=== PATIENT | female | born 1950 | race Caucasian/White ===

== ENCOUNTER → 2019-02-16 14:18 | Outpatient (CLI) | payer MEDICARE, SELFPAY ==
--- NOTE | 2019-02-16 14:14 | DI.RAD_ITS ---
SYMPTOMS/DIAGNOSIS: LEFT KNEE PAIN, ? DJD LEFT KNEE: Three views. Comparison is 12/26/10. Periarticular spurring is seen at the posterior patella and the lateral femorotibial joint space. There is narrowing of the patellofemoral joint and the medial femorotibial joint. There is again seen a well-corticated osseous density adjacent to the superior aspect of the patella. No acute fracture or dislocation is seen. The soft tissues are grossly unremarkable. IMPRESSION: Degenerative changes of the left knee, which have shown slight progression since 2010.
== END ==
PROVIDERS: Visit Provider Orthopaedic Surgery
DX: M25.562 Pain in left knee (principal); M17.12 Unilateral primary osteoarthritis, left knee
CPT/HCPCS: 20610; 73562; 99211; 99213; J7325

== ENCOUNTER → 2019-03-05 13:22 | Outpatient (BNVA) | payer MEDICARE, SELFPAY | PROVIDERS: Visit Provider Orthopaedic Surgery | DX: M17.12 Unilateral primary osteoarthritis, left knee (principal) | CPT/HCPCS: 20610; 99211; 99212; J1040 ==

== ENCOUNTER 2019-04-08 00:57 | Outpatient (CLI) | payer MEDICARE, SELFPAY ==
--- NOTE | 2019-04-08 08:00 | DI.MAMMO_ITS ---
SYMPTOM/DIAGNOSIS: SCREENING, Z12.31 MAMMOGRAMS: Mammograms were interpreted according to the usual protocol including computer analysis with CAD system, tomosynthesis and C view imaging. The breasts are primarily of fatty radiodensity. There is no mass. There are no suspicious calcifications. There has been no significant interval change when compared with the previous study. IMPRESSION: No evidence of malignancy, category 1. Yearly screening mammography is recommended. Breast density, Category A. SA ASSESSMENT OF FINDINGS: Negative. Category 1. Patient will receive a letter notifying them of these results. BI-RAD category A. The breasts are almost entirely fatty.
== END 2019-04-08 01:17 ==
DX: Z12.31 Encounter for screening mammogram for malignant neoplasm of breast (principal)
CPT/HCPCS: 77063; 77067

== ENCOUNTER → 2019-04-16 10:23 | Outpatient (BNVA) | payer MEDICARE, SELFPAY | PROVIDERS: Visit Provider Orthopaedic Surgery | DX: M17.12 Unilateral primary osteoarthritis, left knee (principal); Z98.890 Other specified postprocedural states; K04.7 Periapical abscess without sinus | CPT/HCPCS: 99211; 99212 ==

== ENCOUNTER → 2019-05-28 09:28 | Outpatient (BNVA) | payer MEDICARE, SELFPAY | PROVIDERS: Visit Provider Orthopaedic Surgery | DX: M17.12 Unilateral primary osteoarthritis, left knee (principal) | CPT/HCPCS: 20610; 99211; 99213; J1040 ==

== ENCOUNTER 2019-07-27 08:33 | Outpatient (CLI) | payer MEDICARE, SELFPAY ==
--- NOTE | 2019-07-27 08:15 | DI.RAD_ITS ---
SYMPTOM/DIAGNOSIS: CHRONIC LOW BACK PAIN LUMBOSACRAL SPINE: A mild dextrorotoscoliotic deformity involving the lower dorsal and upper and mid lumbar spine is demonstrated. The vertebral bodies appear intact. Disc space narrowing is noted at L 1-2, L 2-3 and L 3-4. The pedicle, spinous and transverse processes appear intact. Degenerative changes involving the facet joints are most pronounced at L 3 through S 1. There is no evidence of spondylosis or spondylolisthesis. The sacrum and sacroiliac joints are intact. SUMMARY: Degenerative changes involving dextrorotoscoliotic lumbar spine are demonstrated as described above.
== END 2019-07-27 08:53 ==
PROVIDERS: Visit Provider Physician Assistant
DX: M54.5 Low back pain (principal); M51.36 Other intervertebral disc degeneration, lumbar region; M41.86 Other forms of scoliosis, lumbar region; M48.062 Spinal stenosis, lumbar region with neurogenic claudication; M17.12 Unilateral primary osteoarthritis, left knee; Z98.890 Other specified postprocedural states
CPT/HCPCS: 99214; 72110

== ENCOUNTER 2019-08-04 01:14 | Outpatient (CLI) | payer MEDICARE, SELFPAY ==
--- NOTE | 2019-08-04 09:45 | DI.MRI_ITS ---
EXAM: MR LUMBAR SPINE WO CLINICAL HISTORY: SPINAL STENOSIS [id number]. TECHNIQUE: Multiplanar multisequence MRI of the Lumbar spine was performed. COMPARISON: MRI - LUMBAR SPINE WO CONTRAST from 06/10/2014 FINDINGS: Bones: The last intervertebral disc space is designated the L5/S1 level for the numbering purpose of this examination. The vertebral body heights are well maintained. Alignment is satisfactory. The si gnal characteristics are unremarkable. Cord: The conus medullaris has a normal appearance and location. T12-L1: No disc herniations or bulges are present. L1-2: There is a mild diffuse disc bulge. No significant central spinal canal stenosis is present . There is mild narrowing of the left neural foramen. L2-3: No disc herniations or bulges are present. L3-4: No disc herniations or bulges are present. There are hypertrophic changes of the facets and li gamentum flavum. No significant central spinal canal stenosis is present. There is mild narrowing o f the neural foramina bilaterally. L4-5: There is a mild diffuse disc bulge. There are hypertrophic changes of the facets and ligament um flavum. The findings cause huyw-fk-xnurdyad central spinal canal stenosis. There is mild narrowi ng of the neural foramen bilaterally. L5-S1: There is disc desiccation present. There are degenerative changes of the facets with mild li gamentum hypertrophy. No significant central spinal canal stenosis is present. There is no neural f oraminal stenosis. Soft tissues: The visualized SI joints and sacrum are well maintained. The paraspinal soft tissues ar e unremarkable. IMPRESSION: Multilevel degenerative changes throughout the lumbar spine as described above. Multilevel central s brennan canal or neural foraminal stenosis as described.
== END 2019-08-04 01:34 ==
PROVIDERS: Visit Provider Student in an Organized Health Care Education/Training Program
DX: M48.062 Spinal stenosis, lumbar region with neurogenic claudication (principal); M51.17 Intervertebral disc disorders with radiculopathy, lumbosacral region
CPT/HCPCS: 72148

== ENCOUNTER → 2019-08-10 09:19 | Outpatient (BNVA) | payer MEDICARE, SELFPAY | PROVIDERS: Visit Provider Student in an Organized Health Care Education/Training Program | DX: M48.062 Spinal stenosis, lumbar region with neurogenic claudication (principal); M17.12 Unilateral primary osteoarthritis, left knee | CPT/HCPCS: 99213 ==

== ENCOUNTER 2020-04-08 01:33 | Outpatient (CLI) | payer MEDICARE, SELFPAY ==
[2020-04-08 08:25] LABS: ALT 30 U/L (14-59); AST 19 U/L (15-37); Albumin 3.7 g/dL (3.4-5.0); Alkaline Phosphatase 80 U/L (46-116); Anion Gap 4.6 mmol/L (3-11); BUN 13 mg/dL (7-18); Bilirubin, Total 0.4 mg/dL (0.2-1.0); CO2 29.4 mmol/L (21.0-32.0); CREATININE 0.83 mg/dL (0.55-1.02); Calcium 8.9 mg/dL (8.5-10.1); Calculated LDL 123 mg/dL (<100); Chloride 106 mmol/L (98-107); Cholesterol 213 mg/dL (<200); Glucose 111 mg/dL (74-106); HDL Cholesterol 77 mg/dL (40-60); Potassium 4.3 mmol/L (3.5-5.1); Sodium 140 mmol/L (136-145); Total Protein 7.1 g/dL (6.4-8.2); Triglyceride 67 mg/dL (<150)
== END 2020-04-08 01:53 ==
DX: E78.5 Hyperlipidemia, unspecified (principal); I10 Essential (primary) hypertension; K21.9 Gastro-esophageal reflux disease without esophagitis; K57.30 Diverticulosis of large intestine without perforation or abscess without bleeding; M79.7 Fibromyalgia; R63.8 Other symptoms and signs concerning food and fluid intake; E03.9 Hypothyroidism, unspecified
CPT/HCPCS: 36415; 80053; 80061

== ENCOUNTER 2020-04-21 01:23 | Outpatient (CLI) | payer MEDICARE, SELFPAY ==
--- NOTE | 2020-04-21 08:15 | DI.MAMMO_ITS ---
EXAM: MG MAMMO SCREENING CLINICAL HISTORY: [id number] TECHNIQUE: Bilateral full field digital CC and MLO mammographic images were obtained with 3D tomosyn thesis and utilizing computer aided detection (CAD). COMPARISON: Available for comparison. FINDINGS: Masses/Architectural Distortion: None seen. Microcalcifications: No suspicious pleomorphic-type are seen. Skin Thickening/Nipple Retraction: None. IMPRESSION: 1. No significant interval change with no specific features of malignancy noted. 2. Unless there is more urgent need, screening mammography is recommended, as per [employer] guidelines. BI-RADS Category 1 - Negative Breast Density - Category A - Almost entirely fatty A negative radiographic report should not delay biopsy if a dominant or clinically suspicious mass is present. Up to ten percent of cancers are not identified on mammography. A negative report may reinforce clinical impression. Adenosis and dense breasts may obscure an underlying neoplasm. False positive reports average 6 to 10%. Patient will receive a letter notifying them of these results.
== END 2020-04-21 01:43 ==
DX: Z12.31 Encounter for screening mammogram for malignant neoplasm of breast (principal)
CPT/HCPCS: 77063; 77067

== ENCOUNTER 2020-07-11 09:52 | Outpatient (CLI) | payer MEDICARE, SELFPAY ==
--- NOTE | 2020-07-11 09:30 | DI.RAD_ITS ---
EXAM: XR KNEE RT 3V AP,LAT,ROSALIE CLINICAL HISTORY: R knee pain. TECHNIQUE: 2D digital imaging was performed. COMPARISON: CR XR knee LT 3V AP,lat,rosalie from 02/16/2019 FINDINGS: There are moderate degenerative changes of the right knee characterized by joint space narrowing and periarticular spurring. The findings are most marked at the medial femoral tibial joint and the fountain llofemoral joint. The bones are intact and normally mineralized. The soft tissues are unremarkable. IMPRESSION: Moderate degenerative changes of the right knee. DATA REPOSITORY: RADIATION DOSE DELIVERED:
== END 2020-07-11 10:12 ==
PROVIDERS: Visit Provider Student in an Organized Health Care Education/Training Program
DX: M17.11 Unilateral primary osteoarthritis, right knee (principal); M17.12 Unilateral primary osteoarthritis, left knee; M25.562 Pain in left knee; M25.561 Pain in right knee; M48.062 Spinal stenosis, lumbar region with neurogenic claudication
CPT/HCPCS: 20610; 73562; 99214; J1040

== ENCOUNTER → 2020-08-01 08:09 | Outpatient (BNVA) | payer MEDICARE, SELFPAY | PROVIDERS: Referring Provider Student in an Organized Health Care Education/Training Program; Visit Provider Psychiatry & Neurology Neurology | DX: M48.062 Spinal stenosis, lumbar region with neurogenic claudication (principal); M54.5 Low back pain; G89.29 Other chronic pain; M17.12 Unilateral primary osteoarthritis, left knee; M17.11 Unilateral primary osteoarthritis, right knee; K59.00 Constipation, unspecified; R35.0 Frequency of micturition | CPT/HCPCS: 95885; 95908; 99204; 99215 ==

== ENCOUNTER 2020-11-01 07:23 | Outpatient (CLI) | payer MEDICARE, SELFPAY ==
--- NOTE | 2020-11-01 06:00 | DI.RAD_ITS ---
EXAM: XR PAIN CLINIC LUMBAR SP 2V CLINICAL HISTORY: Dx: Lumbar Radiculopathy TECHNIQUE: 2D and realtime digital imaging was performed. CONTRAST MATERIAL: Refer to procedure report. COMPARISON: No exams were available for comparison FINDINGS: Fluoroscopy was provided for Dr. Waller during the performance of a lumbosacral pain management. Plea se refer to the procedure report for complete details. Fluoro time: 14.6 seconds IMPRESSION:
[2020-11-01 08:04] VITALS: BP 151/80; PULSE 79; RESP 17; TEMP 37; O2SAT 97
[2020-11-01] MEDS: Omnipaque 240 MG/ML 50 ML BTL IJ (08:36)
[2020-11-01] MEDS: methylPREDNISolone ACETATE 80 MG/ML VIAL IJ (08:36)
--- NOTE | 2020-11-01 08:41 | PDOC.PAIN_ITS ---
Pain Clinic Procedure Note Procedure Note Procedure Note: Date of service: 11/01/20 Lumbar Epidural Steroid Injection Procedure Note COMMENTS: Previously seen in our clinic by Ms. Chavira on 08/16/20. She last had an MRI of the lumbar spine on 08/04/2019. I did review these documents. She has left sided low back pain radiating down her left leg. No rash or other abnormality to her low back area this time. DX: Lumbosacral radiculopathy JUVE WILLOUGHBY has been referred to the [facility] for lumbar epidural steroid injection. The patient was greeted by the nurse who verified patients name and . Patient was then taken to the fluoroscopy suite. The patient was interviewed and the medial record reviewed. There were no medical, pharmacologic, radiographic, or other structural contraindications to attempting fluoroscopically guided lumbar epidural steroid injection. Risks and expected side effects as well as potential benefits of the procedure were reviewed and voiced concerns expressed. The patient consent form was signed and witnessed. Standard patient time-out procedure was performed. The patient was placed in the prone position on the fluoroscopy table and automated blood pressure cuff and pulse oximeter applied. The skin entry point for entering/approaching the epidural space at L5-S1 and marked. Following thorough chlorhexadine preparation of the skin and draping and 1% lidocaine infiltration of the skin entry point and subcutaneous tissues, a 18 gauge Touhy needle was placed under fluoroscopic guidance and with loss of resistance technique into the epidural space. Needle tip placement and depth were aided and confirmed by fluoroscopy. There was no paresthesia or return of blood or CSF through the needle. 1 cc's of Omnipaque 240 was injected with clear epidural s pread confirmed with fluoroscopy. 80mg depomedrol was injected. There was not any unusual discomfort expressed by JUVE WILLOUGHBY. Patient's vital signs were stable throughout the procedure and were as recorded in nursing records. Follow up plans and appointments were discussed with patient. Post procedure instruction was given as documented in nursing records and having met discharge criteria and was discharged from the [facility]. COMMENTS: If this procedure is helpful, it can be completed up to 3 times per 12 months. Willis Waller DO, MPH Pain Management
[2020-11-01 08:47] VITALS: BP 162/84; PULSE 85; RESP 20; O2SAT 98
== END 2020-11-01 07:43 ==
PROVIDERS: Visit Provider Preventive Medicine Occupational Medicine
DX: M54.17 Radiculopathy, lumbosacral region (principal)
CPT/HCPCS: 62323; 72100; J1040; Q9967

== ENCOUNTER → 2021-04-17 09:44 | Outpatient (BNVA) | payer MEDICARE, OTHER, SELFPAY | PROVIDERS: Visit Provider Physician Assistant | DX: M17.12 Unilateral primary osteoarthritis, left knee (principal); M17.11 Unilateral primary osteoarthritis, right knee | CPT/HCPCS: 20610; J1040 ==

== ENCOUNTER 2021-07-07 00:53 | Outpatient (CLI) | payer MEDICARE, SELFPAY ==
[2021-07-07 11:25] LABS: ALT 23 U/L (14-59); AST 21 U/L (15-37); Albumin 3.7 g/dL (3.4-5.0); Alkaline Phosphatase 76 U/L (46-116); Anion Gap 9.9 mmol/L (3-11); BUN 11 mg/dL (7-18); Bilirubin, Total 0.5 mg/dL (0.2-1.0); CO2 28.1 mmol/L (21.0-32.0); CREATININE 0.8 mg/dL (0.55-1.02); Calculated LDL 188 mg/dL (<100); Chloride 105 mmol/L (98-107); Cholesterol 273 mg/dL (<200); Glucose 100 mg/dL (74-106); HDL Cholesterol 69 mg/dL (40-60); Potassium 4.1 mmol/L (3.5-5.1); Sodium 143 mmol/L (136-145); Total Protein 6.9 g/dL (6.4-8.2); Triglyceride 84 mg/dL (<150)
== END 2021-07-07 00:54 | disposition home or self-care (01) ==
LOC: LOS 00:53
DX: E78.5 Hyperlipidemia, unspecified (principal); Z00.00 Encounter for general adult medical examination without abnormal findings
CPT/HCPCS: 36415; 80053; 80061

== ENCOUNTER 2021-07-10 09:48 | Observation (INO) | payer MEDICARE, SELFPAY ==
[2021-07-10] VITALS (64 sets, daily range): BP systolic 120–172; BP diastolic 55–133; PULSE 53–90; RESP 10–30; TEMP 36.4–36.7; O2SAT 93–100
--- NOTE | 2021-07-10 09:45 | RT.EKG_ITS ---
APPROVED REPORT Exam: Resting ECG Reason for Exam: chest pain Patient Location: E HR:68 bpm ECG Measurements Heart Rate 68 AXIS FL 193 P 41 QRSd 166 QRS -26 QT 470 T 108 QTc 501 Conclusion Sinus rhythm...normal P axis, V-rate 60- 99 Left bundle branch block...QRSd>120, broad/notched R ST elevation secondary to IVCD...Multiple VCG criteria I have reviewed and interpreted ECG and agree with software generated interpretation.
--- NOTE | 2021-07-10 10:06 | W.ED.GENAD ---
Discharge Plan Disposition Condition: Improving Discharge Details Chief Complaint: Chest Pain Admit Date/Time: 07/10/21 15:33 Admit Provider: Jeanette Guillen Attending Provider: Jeanette Guillen Primary Care Provider: Huma Baez ED Provider: Mary Beth Mccray Discharge Instructions Activity:: Activity as Tolerated Equipment/Supplies:: No Equipment Needed Diet:: Low Sodium Discharge Orders Discharge Orders: Discharge Order (Routine); Ordered 07/11/21 Ordered By: Jeanette Guillen Discharge Data Discharge Date/Time-TO BE ENTERED AT DEPARTURE: 07/10/21 16:39 Medical Decision Making 70-year-old female presents to the ER chief complaint of midepigastric abdominal/chest pain that began at 615 this morning. She reports she did not wake her up out of sleep. She states that it gets worse when sitting up. Associated with some diaphoresis and nausea no vomiting. Denies any shortness of breath, fever chills problems urinating cough or any other associated symptoms. She denies have any active pain at this time. Denies any lower extremity swelling. Does not take aspirin daily. Does have a past medical history of hypertension, chronic low back pain, diverticulosis, fibromyalgia. Denies being a smoker. EKG was reviewed by Dr. Elisabet Odom ER attending, new left bundle branch block, old EKG available for review. Please see her official review and report. CBC, CMP, serial troponins, CXR ordered at this time. 324 mg chewable aspirin. 1104: Patient re-evaluation, in no acute distress, denies any recurrence of chest pain. EXAM: XR CHEST 2V PA LATERAL CLINICAL HISTORY: Chest pain TECHNIQUE: 2D digital imaging was performed. COMPARISON: No exams were available for comparison FINDINGS: MEDIASTINUM: Normal. HEART: Upper limits of normal. PULMONARY VASCULATURE: Mild pulmonary venous congestion. LUNGS: Mild prominence of the interstitium diffusely. No focal consolidating infiltrates. PLEURAL SPACE: No pleural effusion or pneumothorax. BONE:Within normal limits for the patient's age. OTHER FINDINGS:Normal. IMPRESSION: Findings suggesting pulmonary edema/fluid overload. Please correlate clinically. 1340: Patient re-evaluation, continues to be chest pain free. Discussed recommendation for admission for serial troponins and observation, pt is in agreement with plan. Will discuss case with hospitalist. 1343: Hospitalist paged. 1402: Spoke with Dr. Guillen who requests getting a Abdominal US to rule out cholecystitis prior to accepting patient for admission. EXAM: US ABDOMEN LIMITED CLINICAL HISTORY: Midepigastric pain, R/O Cholecystitis TECHNIQUE: Ultrasound abdomen performed using standard protocol. COMPARISON: No exams were available for comparison FINDINGS: PANCREAS: Normal where visualized. LIVER: There is diffuse increased echogenicity of the liver consistent with fatty infiltration. Liver measures 18 cm long. Hepatopedal flow in the Portal Vein. GALLBLADDER: Multiple mobile stones. No evidence of wall thickening. No pericholecystic fluid identified. BILIARY SYSTEM: Common bile duct measures < 7 mm. No intrahepatic biliary ductal dilation. AVERY'S SIGN: Negative. Right kidney: Normal in size. No evidence of renal calculi. No evidence of hydronephrosis. No renal mass or cyst identified. ASCITES: None seen. IMPRESSION: 1. Cholelithiasis but no evidence of acute cholecystitis. 2. Hepatomegaly and hepatic steatosis. 3. Results of this exam have been verbally communicated with provider. Patient to be admitted, aware of plan. Alert, chest pain free, and hemodynamically stable. HPI General Mode of arrival: ambulatory. Date/Time Provider Initiated Documentation: 07/10/21 09:49. Limitations to Documentation: no limitations. Information obtained by: patient and RN notes reviewed. HPI Narrative: 70-year-old female presents to the ER chief complaint of midepigastric abdominal/chest pain that began at 615 this morning. She reports she did not wake her up out of sleep. She states that it gets worse when sitting up. Associated with some diaphoresis and nausea no vomiting. Denies any shortness of breath, fever chills problems urinating cough or any other associated symptoms. She denies have any active pain at this time. Denies any lower extremity swelling. Does not take aspirin daily. Does have a past medical history of hypertension, chronic low back pain, diverticulosis, fibromyalgia. Denies being a smoker. Related Data Home Medications Medication Instructions Recorded Confirmed vit C 250 mg-vit E 90 mg-zinc 40 2 tab PO DAILY cap 03/31/19 07/10/21 mg-copper 1 sa-jybukc-idnool capsule atorvastatin 40 mg PO QPM #30 tab 07/11/21 carboxymethylcellulose sodium 1 drp OU QID PRN PRN #30 ea 07/11/21 [Refresh Plus] erythromycin 1 applic OS TID 10 Days #0 g 07/11/21 furosemide 20 mg PO DAILY PRN PRN #10 tab 07/11/21 metoprolol tartrate 12.5 mg PO BID #60 tab 07/11/21 pantoprazole 40 mg PO DAILY@0730 #30 tab 07/11/21 sodium chloride [Aundrea 128] 1 drp OS Q6H 10 Days #0 ml 07/11/21 Previous Rx's Medication Instructions Recorded atorvastatin 40 mg PO QPM #30 tab 07/11/21 carboxymethylcellulose sodium 1 drp OU QID PRN PRN #30 ea 07/11/21 [Refresh Plus] erythromycin 1 applic OS TID 10 Days #0 g 07/11/21 furosemide 20 mg PO DAILY PRN PRN #10 tab 07/11/21 metoprolol tartrate 12.5 mg PO BID #60 tab 07/11/21 pantoprazole 40 mg PO DAILY@0730 #30 tab 07/11/21 sodium chloride [Aundrea 128] 1 drp OS Q6H 10 Days #0 ml 07/11/21 Allergies Allergy/AdvReac Type Severity Reaction Status Date / Time No Known Allergies Allergy Verified 07/10/21 09:58 General Stated Complaint: Chest Pain SERENA: 2 Review of Systems Constitutional Constitutional: Reports as per HPI, Denies chills, Denies fever(s) and Denies snoring Cardiovascular Cardiovascular: Reports chest pain, Reports diaphoresis, Denies leg edema, Denies lightheadedness, Denies palpitations, Denies dyspnea and Denies dyspnea on exertion Respiratory Respiratory: Denies dyspnea, Denies dyspnea on exertion, Denies snoring, Denies stridor and Denies wheezing Gastrointestinal Gastrointestinal: Reports heartburn, Denies diarrhea, Reports nausea and Denies vomiting Genitourinary Genitourinary: Denies difficulty voiding Endocrine Endocrine: Denies palpitations Allergic/Immunologic Allergic/Immunologic: Denies wheezing [facility] Medical History (Updated 07/11/21 @ 16:01 by Jeanette Guillen MD) Diverticulosis Diverticulosis of colon without diverticulitis Fibromyalgia Gastroesophageal reflux disease GERD (gastroesophageal reflux disease) Hyperlipidemia (10/22/13) Hypertension Increased BMI Macular degeneration disease (08/08/17) Polyp of colon 2017 [place] - 7 years. 12/17[place] [facility] [place]ENOM[place]OUS [place] (5 YEAR RECALL) 2008 cecal polyp dot Primary fibromyalgia syndrome (10/22/13) Surgical History Arthroplasty of knee (~10/2005) Colonoscopy - IV Sedation (03/04/17) Colonoscopy [place]12[place]14/11[place] [facility] [place]ENOM[place]; DIVERTICULOSIS EGD - [place] (12/14/11[place] [facility] [place] GERD History of arthroscopy of knee SHOULDER SURGERY 08/25/14-DR. NELSON Family History Mother , age 89 Essential hypertension Asthma Father , 84 Diabetes Essential hypertension Heart disease Sister No problems noted. Brother No problems noted. Maternal Grandfather Heart disease Paternal Grandfather Diabetes Maternal Grandmother Stomach cancer Paternal Grandmother Breast cancer Sister Depression Sister Depression Brother No problems noted. Brother Asthma Son No problems noted. Daughter No problems noted. Social History (Updated 07/05/21 @ 18:12 by Ramya Sprague) Smoking/Tobacco Use Status: Former Tobacco Use tobacco type: cigarettes Quit Date: 04/17/09 Second Hand Exposure: Yes Smoking risk assessment performed?: Yes Alcohol Intake: current Alcohol Intake frequency: a few times a week Alcohol type: beer Drug use: Never Substance use type: does not use Caregiver/Support person: No Household members: spouse Housing: apartment Communication Needs: None Do you need help understanding health information?: Never Pets and animals: No Sexually active: No Do you think of yourself as: straight/heterosexual What is your relationship status?: How often do you talk on the phone with friends or family?: twice per week How often do you get together with friends or relatives?: once per week How often do you attend lutheran or jainism services?: decline to answer Do you belong to any clubs or organized social groups?: no Panel score (0-1 are the most socially isolated patients): 2 What type of physical activity do you participate in: swimming Duration: > 90 minutes/day Frequency: 5-6 times per week Tisha/Spiritism: Scientologist Special tisha needs: No Seatbelt use: always Helmet use: No Drive intox or ride w/intox driver guard: No Do you feel safe at home: Yes Do you feel safe in your relationship?: Yes Exam Narrative Exam Narrative: Constitutional: Alert and oriented x3. Appears stated age. Normal body habitus. Head: Normocephalic, no trauma. Eyes: Pupils PERRLA, Red reflex noted, EOM's intact. Eyelids symmetrical without lesions, discharge, or swelling. ENT: Bilateral TM's WNL, External ear normal to inspection, no mastoid TTP, swelling, or erythema, Nasal turbinates WNL, no nasal discharge. Normal dentition, Posterior pharynx WNL, no exudate. Erythema noted to rick-orbital left eye, See eye exam below. Chest: RRR, Normal S1, S2, distal pulses intact. Resp: Lungs clear to auscultation bilaterally, no wheezes, rales, or rhonchi. Abdomen: Soft, non-distended, non-tender to palpation all 4 quadrants. Musculoskeletal: Normal gait, 5/5 strength to all four extremities. Skin: No suspicious rashes or lesions. Capillary refill less than 2 sec. Neurologic: Cranial nerves II-XII intact. Alert and oriented x 3. DTR's intact. Hematologic/Lymphatic: No ecchymosis, no lymphadenopathy. Eyes Periorbital: periorbital findings abnormal left Conjunctivae: conjunctival abnormality left conjunctival injection diffuse Cornea: corneas abnormal on the left fluorescein used and abrasion; with no foreign body noted Pupils: PERRL Eyes/upper lids images: 1. Corneal Abrasion 2. Corneal Abrasion Course Vital Signs Vital signs: Vital Signs Temperature 36.5 C 07/10/21 09:54 Pulse 70 07/10/21 09:54 Respiratory Rate 16 07/10/21 09:54 Pulse Oximetry 100 07/10/21 09:54 Temperature 36.5 C 07/10/21 09:54 Temperature Source Temporal Artery Scan 07/10/21 09:54 Pulse 70 07/10/21 09:54 Respiratory Rate 16 07/10/21 09:54 Respiratory Effort Non-Labored 07/10/21 09:56 Blood Pressure Position Supine 07/10/21 09:54 Pulse Oximetry 100 07/10/21 09:54 Oxygen Delivery Method Room Air 07/10/21 09:54 Oxygen Flow Rate 0 07/10/21 09:54 Pain Level 4 07/10/21 09:54
[2021-07-10] MEDS: Aspirin 81 MG CHEW 324 MG CH (10:14)
--- NOTE | 2021-07-10 10:15 | DI.RAD_ITS ---
Exam(s) XR CHEST 2V PA LATERAL EXAM: XR CHEST 2V PA LATERAL CLINICAL HISTORY: Chest pain TECHNIQUE: 2D digital imaging was performed. COMPARISON: No exams were available for comparison FINDINGS: MEDIASTINUM: Normal. HEART: Upper limits of normal. PULMONARY VASCULATURE: Mild pulmonary venous congestion. LUNGS: Mild prominence of the interstitium diffusely. No focal consolidating infiltrates. PLEURAL SPACE: No pleural effusion or pneumothorax. BONE:Within normal limits for the patient's age. OTHER FINDINGS:Normal. IMPRESSION: Findings suggesting pulmonary edema/fluid overload. Please correlate clinically. DATA REPOSITORY: RADIATION DOSE DELIVERED:
[2021-07-10 10:30] LABS: Abs Immature Grans 0.05 10^3/uL (0.0-0.06); Absolute Basophil Count 0.05 10^3/uL (0.0-0.2); Absolute Eosinophil Count 0.03 10^3/uL (0.0-0.7); Absolute Lymphocyte Count 0.72 10^3/uL (1.2-3.4); Absolute Monocyte Count 0.63 10^3/uL (0.1-0.8); Absolute Neutrophil Count 9.18 10^3/uL (1.2-6.7); Basophils % 0.5; Eosinophils % 0.3; HCT 42.8 % (36.0-46.0); Immature Grans % 0.5; Lymphocytes % 6.8; MCHC 32.7 % (32.0-36.0); MCV 97.9 fL (80-95); MPV 11.1 fL (8.0-11.0); Monocytes % 5.9; Nucleated RBC 0 %; Platelet Count 191 10^3/uL (130-400); RBC 4.37 10^6/uL (3.93-5.22); RDW 15.9 % (11.7-14.6); WBC 10.66 10^3/uL (4.4-10.8)
[2021-07-10 10:44] LABS: Magnesium 2.2 mg/dL (1.8-2.4)
[2021-07-10 11:15] LABS: ALT 91 U/L (14-59); AST 157 U/L (15-37); Albumin 3.8 g/dL (3.4-5.0); Alkaline Phosphatase 165 U/L (46-116); Anion Gap 8.8 mmol/L (3-11); BUN 15 mg/dL (7-18); CO2 28.2 mmol/L (21.0-32.0); CREATININE 0.8 mg/dL (0.55-1.02); Chloride 103 mmol/L (98-107); Glucose 119 mg/dL (74-106); Lipase 159 U/L (73-393); Potassium 3.8 mmol/L (3.5-5.1); Sodium 140 mmol/L (136-145); Total Protein 7.9 g/dL (6.4-8.2)
[2021-07-10 11:16] LABS: Troponin I < 0.05 ng/mL (<0.06)
[2021-07-10 11:34] LABS: NT-proBNP 826 pg/mL (<300)
--- NOTE | 2021-07-10 12:45 | RT.EKG_ITS ---
APPROVED REPORT Exam: Resting ECG Reason for Exam: repeat trop Patient Location: E HR:66 bpm ECG Measurements Heart Rate 66 AXIS MT 186 P 44 QRSd 161 QRS -28 QT 499 T 104 QTc 521 Conclusion Sinus rhythm...normal P axis, V-rate 60- 99 Left bundle branch block...QRSd>120, broad/notched R ST elevation secondary to IVCD...Multiple VCG criteria I have reviewed and interpreted ECG and agree with software generated interpretation.
[2021-07-10 13:28] LABS: Troponin I < 0.05 ng/mL (<0.06)
[2021-07-10] MEDS: hydroCHLOROthiazide 12.5 MG TAB PO (13:49)
--- NOTE | 2021-07-10 14:00 | DI.US_ITS ---
Exam(s) US ABDOMEN LIMITED EXAM: US ABDOMEN LIMITED CLINICAL HISTORY: Midepigastric pain, R/O Cholecystitis TECHNIQUE: Ultrasound abdomen performed using standard protocol. COMPARISON: No exams were available for comparison FINDINGS: PANCREAS: Normal where visualized. LIVER: There is diffuse increased echogenicity of the liver consistent with fatty infiltration. Live r measures 18 cm long. Hepatopedal flow in the Portal Vein. GALLBLADDER: Multiple mobile stones. No evidence of wall thickening. No pericholecystic fluid identi fied. BILIARY SYSTEM: Common bile duct measures < 7 mm. No intrahepatic biliary ductal dilation. AVERY'S SIGN: Negative. Right kidney: Normal in size. No evidence of renal calculi. No evidence of hydronephrosis. No renal mass or cyst identified. ASCITES: None seen. IMPRESSION: 1. Cholelithiasis but no evidence of acute cholecystitis. 2. Hepatomegaly and hepatic steatosis. 3. Results of this exam have been verbally communicated with provider. DATA REPOSITORY:
[2021-07-10 15:16] LABS: Source Nasal/Nares
[2021-07-10] MEDS: Tetracaine 0.5% 4 ML BTL OP (15:45)
[2021-07-10] MEDS: Fluorescein STRIPS 100/BOX 1 MG OP (15:45)
[2021-07-10] MEDS: Balanced Salt Solution 15 ML BTL OP (15:45)
[2021-07-10] MEDS: Erythromycin Ophth Oint 3.5 GM TUBE (15:47)
--- NOTE | 2021-07-10 17:22 | HPE_ITS ---
Date of service: 07/10/21 Time of Service: 17:23 Assessment and Plan Assessment and plan (1) Chest discomfort: Status: Acute Assessment and plan: In actuality, the patient's symptoms are more c/w billiary colic. The ischemic workup will be pursued, but this is based on incidental findings of LBBB and pulmonary edema and CXR. The patient will need to have follow up for the billiary colic as outpatient. She is being prescribed a higher dose of PPI as well as she is normally on NSAIDs. The patient does have a new LBBB on EKG, evidence of acute CHF, all of which argue toward likely underlying CAD. Does have a h/o tobacco abuse, hypertension, hyperlipidemia. The patient will be monitored on telemetry with serial troponins and EKG in am, diuresed overnight, made NPO for MPI tomorrow. (2) New onset left bundle branch block (LBBB): Status: Acute Assessment and plan: Must r/o underlying CAD. For MPI tomorrow. R/o ACS as above (3) Acute CHF: Status: Acute Assessment and plan: Start lasix. Monitor I/O's and daily weights. TSH/FT4 pending. Check echo. MPI tomorrow. (4) Transaminitis: Status: Acute Assessment and plan: Has evidence of hepatic steatosis on US. No evidence of acute cholecystitis, but does have cholelithiasis which predisposes her to biliary colic and possible choledocholithiasis. Her pain has resolved. She will need follow up for this as outpatient. Check hepatitis panel (5) Hepatic steatosis: Status: Acute Assessment and plan: as above (6) Corneal abrasion: Status: Acute Assessment and plan: Tx with Aundrea drops, moisturizing eye drops, as well as eythromycin ointment. (7) DVT prophylaxis: Status: Acute Assessment and plan: SC lovenox (8) Discharge planning issues: Status: Acute Assessment and plan: Full code History of Present Illness History of Present Illness Chief Complaint: chest pain Narrative: Ms Barbour is a 70 year old female with PMHx of hypertension, hyperlipidemia, GERD, and fibromyalgia, who presented to [facility] ED today c/o epigastric discomfort radiating to her back and accompanied by nausea since 6:14 am this morning. This has completely resolved patient presented to the ED. She was initiated on HCTZ for her BP yesterday. Her EKG in the ED showed new LBBB. Her troponins were negative x2. She had evidence of pulmonary edema on CXR, though the patient denies any SOB at rest. She does endorse PHAN when walking up a hill. Denies orthopnea/PND. She was found to have elevated LFTs. US abdomen ruled out acute cholecystitis, but showed cholelithiasis. Observation on hospitalist service was requested for further workup of chest pain, new LBBB, and acute CHF. The patient was diagnosed with a corneal abrasion of the left eye today as well in the ED. Review of Systems Narrative: Additionally, reports L eye itching and swelling since Saturday. All systems reviewed & are unremarkable except as noted in HPI and below [facility] Medical History (Updated 07/10/21 @ 17:48 by Jeanette Guillen MD) Diverticulosis Diverticulosis of colon without diverticulitis Fibromyalgia Gastroesophageal reflux disease GERD (gastroesophageal reflux disease) Hyperlipidemia (10/22/13) Increased BMI Macular degeneration disease (08/08/17) Polyp of colon 2017 Tone - 7 years. 12/17/11 [facility] [place] (5 YEAR RECALL) 2008 cecal polyp dot Primary fibromyalgia syndrome (10/22/13) Surgical History Arthroplasty of knee (~10/2005) Colonoscopy - IV Sedation (03/04/17) Colonoscopy - MAC (12/14/11[place] [facility] [place]ENOM[place]; DIVERTICULOSIS EGD - MAC (12/14/11) [facility] [place] GERD History of arthroscopy of knee SHOULDER SURGERY 08/25/14-DR. NELSON Family History Mother , age 89 Essential hypertension Asthma Father , 84 Diabetes Essential hypertension Heart disease Sister No problems noted. Brother No problems noted. Maternal Grandfather Heart disease Paternal Grandfather Diabetes Maternal Grandmother Stomach cancer Paternal Grandmother Breast cancer Sister Depression Sister Depression Brother No problems noted. Brother Asthma Son No problems noted. Daughter No problems noted. Social History (Updated 07/05/21 @ 18:12 by Ramya Sprague) Smoking/Tobacco Use Status: Former Tobacco Use tobacco type: cigarettes Quit Date: 04/17/09 Second Hand Exposure: Yes Smoking risk assessment performed?: Yes Alcohol Intake: current Alcohol Intake frequency: a few times a week Alcohol type: beer Drug use: Never Substance use type: does not use Caregiver/Support person: No Household members: spouse Housing: apartment Communication Needs: None Do you need help understanding health information?: Never Pets and animals: No Sexually active: No Do you think of yourself as: straight/heterosexual What is your relationship status?: How often do you talk on the phone with friends or family?: twice per week How often do you get together with friends or relatives?: once per week How often do you attend judaism or oriental orthodox services?: decline to answer Do you belong to any clubs or organized social groups?: no Panel score (0-1 are the most socially isolated patients): 2 What type of physical activity do you participate in: swimming Duration: > 90 minutes/day Frequency: 5-6 times per week Tisha/Oriental Orthodox: Tenriism Special tisha needs: No Seatbelt use: always Helmet use: No Drive intox or ride w/intox driver wheelchair: No Do you feel safe at home: Yes Do you feel safe in your relationship?: Yes Meds Allergies and Home Medications Allergies Allergy/AdvReac Type Severity Reaction Status Date / Time No Known Allergies Allergy Verified 07/10/21 09:58 Home Medications Medication Instructions Recorded Confirmed Type Varicella-Zoster Ge/As01b/Pf 50 mcg IM ONCE #1 kit 03/27/18 11/01/20 Clinic [Shingrix Vial Kit] vit C 250 mg-vit E 90 mg-zinc 40 2 tab PO DAILY cap 03/31/19 07/10/21 History mg-copper 1 lm-[id number] capsule ibuprofen 600 mg PO BID PRN 08/16/20 07/10/21 History omeprazole 20 mg capsule,delayed 20 mg PO DAILY PRN #90 cap 09/29/20 07/10/21 Rx release hydrochlorothiazide 12.5 mg tablet 12.5 mg PO QAM #30 tab 07/04/21 07/10/21 Rx pravastatin 20 mg tablet 20 mg PO DAILY #90 tab 07/04/21 07/10/21 Rx Exam Narrative Exam Narrative: General: Pleasant Middle-aged female, who appears animated and comfortable sitting at the side of the bed Neurological: A&Ox3, no focal deficits Psychiatric: Appropriate speech pattern/content Skin: multiple insect bites on B LE, appear to be mosquitto bites HEENT: Atraumatic, normocephalic, EOMI, MMM, clear oropharynx, no submandibular or cervical lymphadenopathy, no goiter or JVD Cardiovascular: RRR, + ZOEY Lungs: faint crackles L base Gastrointestinal: soft, nontender at the time of my exam, nondistended Genitourinary: deferred Extremities: trace edema BLE's, no c/c. 1+ pedal pulses B Results Imaging Additional studies: EKG #1: LBBB (new), HR 68 EKG #2: LBBB, HR 66 US abdomen: 1. Cholelithiasis but no evidence of acute cholecystitis. 2. Hepatomegaly and hepatic steatosis. 3. Results of this exam have been verbally communicated with provider. CXR: Findings suggesting pulmonary edema/fluid overload. Please correlate clinically. Labs Result diagrams: 07/10/21 10:18 07/10/21 10:18 Labs: Laboratory Results - last 24 hr 07/10/21 07/10/21 07/10/21 10:02 10:02 10:02 WBC Cancelled RBC Cancelled Hgb Cancelled Hct Cancelled MCV Cancelled MCH Cancelled MCHC Cancelled RDW Cancelled Plt Count Cancelled MPV Cancelled Immature Gran % Cancelled Neutrophils % Cancelled Band Neutrophils % Cancelled Lymphocytes % Cancelled Atypical Lymphs % Cancelled Monocytes % Cancelled Eosinophils % Cancelled Basophils % Cancelled Metamyelocytes % Cancelled Myelocytes % Cancelled Promyelocytes % Cancelled Other Cells % Cancelled Nucleated RBC % Cancelled Absolute Neutrophils Cancelled Absolute Lymphocytes Cancelled Absolute Monocytes Cancelled Absolute Eosinophils Cancelled Absolute Basophils Cancelled RBC Morphology Cancelled Polychromasia Cancelled Hypochromasia Cancelled Poikilocytosis Cancelled Basophilic Stippling Cancelled Anisocytosis Cancelled Microcytosis Cancelled Macrocytosis Cancelled Spherocytes Cancelled Tear Drop Cells Cancelled Ovalocytes Cancelled Stomatocytes Cancelled [place] Bodies Cancelled Evelyne Cells/Echinocytes Cancelled Acanthocytes (Spur) Cancelled Schistocytes Cancelled Sodium Cancelled Potassium Cancelled Chloride Cancelled Carbon Dioxide Cancelled Anion Gap Cancelled BUN Cancelled Creatinine Cancelled Estimated GFR/1.73 m2 Cancelled Glucose Cancelled Calcium Cancelled Magnesium Cancelled Total Bilirubin Cancelled AST Cancelled ALT Cancelled Alkaline Phosphatase Cancelled Troponin I Cancelled NT-Pro-B Natriuret Pep Total Protein Cancelled Albumin Cancelled Lipase COVID-19 Source 07/10/21 07/10/21 07/10/21 10:05 10:18 10:18 WBC RBC Hgb Hct MCV MCH MCHC RDW Plt Count MPV Immature Gran % Neutrophils % Band Neutrophils % Lymphocytes % Atypical Lymphs % Monocytes % Eosinophils % Basophils % Metamyelocytes % Myelocytes % Promyelocytes % Other Cells % Nucleated RBC % Absolute Neutrophils Absolute Lymphocytes Absolute Monocytes Absolute Eosinophils Absolute Basophils RBC Morphology Polychromasia Hypochromasia Poikilocytosis Basophilic Stippling Anisocytosis Microcytosis Macrocytosis Spherocytes Tear Drop Cells Ovalocytes Stomatocytes [place] Bodies Evelyne Cells/Echinocytes Acanthocytes (Spur) Schistocytes Sodium 140 Potassium 3.8 Chloride 103 Carbon Dioxide 28.2 Anion Gap 8.8 BUN 15 Creatinine 0.8 Estimated GFR/1.73 m2 >= 60.00 Glucose 119 H Calcium 9.0 Magnesium 2.2 Total Bilirubin 1.0 AST 157 H ALT 91 H Alkaline Phosphatase 165 H Troponin I < 0.05 NT-Pro-B Natriuret Pep Total Protein 7.9 Albumin 3.8 Lipase Cancelled 159 COVID-19 Source 07/10/21 07/10/21 07/10/21 10:18 10:25 12:51 WBC 10.66 RBC 4.37 Hgb 14.0 Hct 42.8 MCV 97.9 H MCH 32.0 MCHC 32.7 RDW 15.9 H Plt Count 191 MPV 11.1 H Immature Gran % 0.5 Neutrophils % 86.0 Band Neutrophils % Lymphocytes % 6.8 Atypical Lymphs % Monocytes % 5.9 Eosinophils % 0.3 Basophils % 0.5 Metamyelocytes % Myelocytes % Promyelocytes % Other Cells % Nucleated RBC % 0 Absolute Neutrophils 9.18 H Absolute Lymphocytes 0.72 L Absolute Monocytes 0.63 Absolute Eosinophils 0.03 Absolute Basophils 0.05 RBC Morphology Polychromasia Hypochromasia Poikilocytosis Basophilic Stippling Anisocytosis Microcytosis Macrocytosis Spherocytes Tear Drop Cells Ovalocytes Stomatocytes [place] Bodies [place] Cells/Echinocytes Acanthocytes (Spur) Schistocytes Sodium Potassium Chloride Carbon Dioxide Anion Gap BUN Creatinine Estimated GFR/1.73 m2 Glucose Calcium Magnesium Total Bilirubin AST ALT Alkaline Phosphatase Troponin I < 0.05 NT-Pro-B Natriuret Pep 826 H Total Protein Albumin Lipase COVID-19 Source 07/10/21 15:10 WBC RBC Hgb Hct MCV MCH MCHC RDW Plt Count MPV Immature Gran % Neutrophils % Band Neutrophils % Lymphocytes % Atypical Lymphs % Monocytes % Eosinophils % Basophils % Metamyelocytes % Myelocytes % Promyelocytes % Other Cells % Nucleated RBC % Absolute Neutrophils Absolute Lymphocytes Absolute Monocytes Absolute Eosinophils Absolute Basophils RBC Morphology Polychromasia Hypochromasia Poikilocytosis Basophilic Stippling Anisocytosis Microcytosis Macrocytosis Spherocytes Tear Drop Cells Ovalocytes Stomatocytes [place] Bodies Evelyne Cells/Echinocytes Acanthocytes (Spur) Schistocytes Sodium Potassium Chloride Carbon Dioxide Anion Gap BUN Creatinine Estimated GFR/1.73 m2 Glucose Calcium Magnesium Total Bilirubin AST ALT Alkaline Phosphatase Troponin I NT-Pro-B Natriuret Pep Total Protein Albumin Lipase COVID-19 Source Nasal/Nares Last Vital Signs Temp 36.5 C 07/10/21 17:05 Pulse 70 07/10/21 17:05 Resp 20 07/10/21 17:05 BP 172/84 H 07/10/21 17:05 Pulse Ox 96 07/10/21 17:05
[2021-07-10 17:56] LABS: TSH (W/Ref FT4) 4.27 uIU/mL (0.36-3.74)
[2021-07-10] MEDS: Furosemide 20 MG/2 ML VIAL IVP (17:57)
[2021-07-10] MEDS: Normal Saline Flush 10 ML SYR IVP (17:58)
[2021-07-10] MEDS: Enoxaparin 40 MG/0.4 ML SYR SC (17:58)
[2021-07-10 18:14] LABS: FREE T4 1.03 ng/dL (0.76-1.46)
[2021-07-10 18:40] LABS: COVID-19 PCR Negative (Negative)
[2021-07-10 18:45] LABS: Troponin I < 0.05 ng/mL (<0.06)
[2021-07-10] MEDS: Erythromycin Ophth Oint 3.5 GM TUBE OS (19:54)
--- NOTE | 2021-07-11 | DI.US_ITS ---
APPROVED REPORT EXAM: Comprehensive 2D, Doppler, and color-flow Echocardiogram Patient Location: In-Patient Room/Bed: 208 Wafer Cleaner: Mirna Jerry RDCS (AE) Indications: New CHF, Other Information Study Quality: Fair. Technically limited study due to body habitus, arrhythmia. Conclusion Left Ventricle : Left ventricular systolic function is mildly decreased. The left ventricle is normal size. There is normal left ventricular wall thickness. There is global hypokinesis of the left ventr icle. LVEF is 50%. Right Ventricle : Right ventricle is grossly normal in size. Right ventricular systolic function is g rossly normal. Atria : The left atrium size is normal. The right atrium size is normal. Mitral Valve : Mild to moderate mitral annular calcification. Trace to mild mitral regurgitation. No evidence of mitral valve stenosis. Great Vessels : The aortic root is normal in size. The ascending aorta is mildly dilated. Aortic arch is normal in caliber. IVC is normal in size and collapses >50% with inspiration. See remainder of study for further details. Wall motion Left Ventricle The left ventricle is normal size. Left ventricular systolic function is mildly decreased. There is n ormal left ventricular wall thickness. There is global hypokinesis of the left ventricle. There is no ventricular septal defect visualized. LVEF is 50%. Right Ventricle Right ventricle is grossly normal in size. Right ventricular systolic function is grossly normal. Atria The left atrium size is normal. The right atrium size is normal. The interatrial septum is intact wit h no evidence for an atrial septal defect. Aortic Valve The Aortic valve is sclerotic. Aortic valve is trileaflet. No hemodynamically significant valvular ao rtic stenosis. No aortic regurgitation is present. Mitral Valve Mild to moderate mitral annular calcification. No evidence of mitral valve stenosis. Trace to mild mi tral regurgitation. Tricuspid Valve The tricuspid valve is normal in structure. There is no tricuspid valve stenosis. Trace tricuspid reg urgitation. Unable to assess PA pressure. Pulmonic Valve The pulmonary valve is normal in structure. There is no pulmonic valvular stenosis. There is no pulmo rajni valvular regurgitation. Great Vessels The aortic root is normal in size. The ascending aorta is mildly dilated. Aortic arch is normal in ca liber. IVC is normal in size and collapses >50% with inspiration. Pericardium There is no pericardial effusion. 2D Dimensions IVSD d PLAX 0.89 cm F: 0.6-1.0 LV Vol A2C d MOD 177.9 mL LVPW d PLAX 0.98 cm F: 0.6 - 1.0 LV Vol A4C d MOD 168.4 mL LVID d PLAX 4.97 cm F: 3.8 - 5.2 LA vol/ BSA A2C s A-L 29.3 mL/m2 LVDs 3.60 cm F: 2.2 - 3.5 LA vol/ BSA A4C s A-L 30.3 mL/m2 Ao Root d 2.53 cm F: 2.7 - 3.3 LA Vol/ BSA Biplane s A-L 32.0 mL/m2 RA Area A4C 12.84 cm2 LA Area A4C s MOD 19.98 cm2 RA Vol/ BSA A4C s A-L 14.5 mL/m2 LA Area A2C s MOD 18.28 cm2 Ao Asc Diam d 3.24 cm F: 2.3 - 3.1 LV EF A4C MOD 50.0 % LV EF Teichholz 52.9 % LV EF A2C MOD 49.6 % LVEF (Del Valle's) 48.08 % F: 54 - 74 LV EF Biplane MOD 48.1 % LV Volume 129.91 mL F: 46 - 106 SV 83.54 mL LV Volume Index 64.31 mL/m2 F: 29 - 61 SV Index 41.37 mL/m2 LV Vol Biplane MOD 173.8 mL FS 27.25 % M-Mode TAPSE 1.62 cm (M/F) >1.7 LV Diastology MV E' medial 0.066 (>0.07 m/s) E/A Ratio 0.5 LV E/e MED 8.35 (<14) MV E Vmax 0.55 (0.4-1.3 m/s) MV E' lateral 0.077 (>0.1 m/s) MV A Vmax 1.10 (0.4-1.3 m/s) LV E/e LAT 7.10 (<14) MV E/A Ratio 0.48 MV E/E' medial 8.40 MV E/E' lateral 7.12 Aortic Valve LVOT Area 3.28 cm2 AoV Area Vmax 1.52 cm2 LVOT Vmax 1.18 m/s AoV Area/ BSA (Vmax) 0.75 cm2/m2 LVOT Mean Roman. 0.75 m/s KRISTIAN Mean Roman. 1.45 cm2 LVOT Peak Grad 5.6 mmHg KRISTIAN Mean Roman. Index 0.72 cm2/m2 LVOT Mean Grad 2.7 mmHg LVOT VTI 0.184 m LVOT Diam s 2.00 cm AoV Vmax 2.54 m/s Velocity Ratio 0.46 AoV Mean Roman. 1.70 m/s AoV Peak Grad 25.9 mmHg LVOT SV 60.38 mL AoV Mean Grad 13.2 mmHg AoV VTI 0.412 m AoV Area VTI 1.47 cm2 AoV Area/ BSA (VTI) 0.73 cm/m2 Mitral Valve MV DT 157 (160-240 msec) MV PHT 46 msec MV Area PHT 4.82 cm2 MV VTI 0.353 m MV Area VTI 1.71 (4.0-6.0 cm2) Pulmonary Valve PV Vmax 1.20 (0.5-1.5 m/s) RVOT Peak Gr. 4.43 mmHg PV Peak Grad 5.8 mmHg RVOT Mean Gr. 2.15 mmHg PV Mean Grad 2.9 mmHg RVOT VTI 0.206 m PV VTI 0.212 m RVOT Vmax 1.05 m/s
[2021-07-11 03:45] VITALS: BP 118/71; PULSE 70; RESP 18; TEMP 36.6; O2SAT 97
[2021-07-11 07:00] VITALS: PULSE 67
[2021-07-11 07:30] LABS: Abs Immature Grans 0.01 10^3/uL (0.0-0.06); Absolute Basophil Count 0.05 10^3/uL (0.0-0.2); Absolute Eosinophil Count 0.14 10^3/uL (0.0-0.7); Absolute Lymphocyte Count 1.18 10^3/uL (1.2-3.4); Absolute Monocyte Count 0.53 10^3/uL (0.1-0.8); Absolute Neutrophil Count 3.52 10^3/uL (1.2-6.7); Basophils % 0.9; Eosinophils % 2.6; HCT 40.4 % (36.0-46.0); HGB 13.4 g/dL (11.2-15.7); Immature Grans % 0.2; Lymphocytes % 21.7; MCH 31.1 pg (27.0-33.0); MCHC 33.2 % (32.0-36.0); MCV 93.7 fL (80-95); MPV 11.9 fL (8.0-11.0); Monocytes % 9.8; Neutrophils % 64.8; Nucleated RBC 0 %; Platelet Count 189 10^3/uL (130-400); RBC 4.31 10^6/uL (3.93-5.22); RDW 15.9 % (11.7-14.6); RDW-SD 54.9 fL; WBC 5.43 10^3/uL (4.4-10.8)
[2021-07-11 07:49] VITALS: BP 129/74; PULSE 66; RESP 14; TEMP 37.2; O2SAT 94
[2021-07-11] MEDS: Furosemide 20 MG TAB PO (07:53)
[2021-07-11] MEDS: Erythromycin Ophth Oint 3.5 GM TUBE OS (07:53)
[2021-07-11] MEDS: Aspirin E.C. 81 MG TABEC PO (07:53)
[2021-07-11] MEDS: Normal Saline Flush 10 ML SYR IVP (07:53)
[2021-07-11] MEDS: Pantoprazole 40 MG TABCR PO (07:53)
--- NOTE | 2021-07-11 08:00 | DI.NM_ITS ---
APPROVED REPORT Exam: Pharmacologic Patient Location: In-Patient Room/Bed: 208 Stress Nurse: Almaz Dent RN Ordering Provider:BRIGIDO LEIGH, Contact Number: [phone] BMI: 34.77 Baseline Rhythm: Sinus Rhythm, LBBB Indications: Chest pain, new LBBB Medical History Medical History: Hypertension, hyperlipidemia, obesity, smoker (former), gerd, fibromyalgia, pulmonar y edema, PHAN Cardiac Medications: Pravastatin, hydrochlorothiazide, omeprazole Allergies: NKA Cardiac Risk Factors: Hypertension, hyperlipidemia, obesity, smoker (former), family hx Previous Cardiac Procedures: None Pretest Chest Pain Characteristics: None Exercise History: Physically active Physical Disabilities: None Lung Sounds: Clear to auscultation Heart Sounds: Irregular Stress Test Details Test: Pharmacologic stress was paired with low level exercise. Reason for pharmacologic stress test: LBBB. Nuclear Acquisition: Rest Tc-99m/Stress Tc-99m 1 day Rest Isotope: Tc-99m Sestamibi. Dose: 10.5 Date: 07/11/2021 Injection Time: 1130 Stress Isotope: Tc-99m Sestamibi. Dose: 32.3 Date: 07/11/2021 Injection Time: 13.27 HR Resting HR Supine: 72 bpm Max Heart Rate (APMHR): 152.353065 bpm Resting HR Standin bpm Target HR (85% APMHR): 129.921742 bpm Max HR Achieved: 154 bpm % of APMHR: 101.32 Recovery HR: 92 bpm HR response to stress: Normal HR response to stress BP Resting BP Supine: 140/82 mmHg Resting BP Standin/16 mmHg Max BP: 158/78 mmHg Recovery BP: 146/80 mmHg BP response to stress: Normal blood pressure response to stress. ECG Resting ECG: Sinus Rhythm, LBBB Ectopy: occasional multifocal PVCs, bigeminy, triplet Stress ECG: Sinus Tachycardia, LBBB ST Change: Nondiagnostic LBBB Arrhythmia: Frequent multifocal PVCs Recovery ECG: Sinus Rhythm, LBBB Recovery ST Change: Nondiagnostic LBBB Recovery Arrhythmia: Frequent multifocal PVCs, trigeminy Clinical Stress Symptoms: Dyspnea Rate Pressure Product: [id number] Stress ECG Conclusion 1. There is a pharmacological stress test. Patient no symptoms suggestive of ischemia. 2. EKG portion of this exam is nondiagnostic. Stress Test Summary STAGE HR BP Symptoms NOTES Supine 72 140/82 1 min post Lexiscan injection 98 158/78 SpO2 96%, mild SOB 3 min post Lexiscan injection 92 146/80 SpO2 96%, symptoms resolved Pt began ambulating on treadmill for walking Lexiscan test. After 3 minutes of walking test changed t o supine Lexiscan test due to pt safety on treadmill and difficulty with EKG monitoring. Pt tolerated testing well. MPI Conclusion There is a predominantly fixed perfusion defect at the apex and apical anteroseptal wall. There was no significant ischemia. Ejection fraction was 23% with stress. There was global hypokinesis. Radiologist Interpretation Radiologist Interpretation by: Garth Richards MD Interpretation Date/Time: 07/11/2021 16:01:58
[2021-07-11 08:10] LABS: Magnesium 2.1 mg/dL (1.8-2.4)
[2021-07-11 08:13] LABS: Anion Gap 9.2 mmol/L (3-11); BUN 12 mg/dL (7-18); CO2 27.8 mmol/L (21.0-32.0); CREATININE 0.7 mg/dL (0.55-1.02); Calcium 9.1 mg/dL (8.5-10.1); Chloride 104 mmol/L (98-107); Glucose 97 mg/dL (74-106); Potassium 3.7 mmol/L (3.5-5.1); Sodium 141 mmol/L (136-145)
[2021-07-11 08:25] LABS: Calculated LDL 180 mg/dL (<100); Cholesterol 270 mg/dL (<200); HDL Cholesterol 65 mg/dL (40-60); Triglyceride 125 mg/dL (<150)
[2021-07-11] MEDS: Acetaminophen 325 MG TAB 650 MG PO (09:49)
[2021-07-11 11:05] LABS: ALT 140 U/L (14-59); AST 87 U/L (15-37); Albumin 3.4 g/dL (3.4-5.0); Alkaline Phosphatase 140 U/L (46-116); Bilirubin, Direct 0.1 mg/dL (0.0-0.2); Bilirubin, Total 0.5 mg/dL (0.2-1.0); Total Protein 6.7 g/dL (6.4-8.2)
--- NOTE | 2021-07-11 11:34 | INITIAL_ITS ---
- If Service Date Differs Date of service: 07/11/21 Time of Service: 11:36 Care Management Initial Assess REASON FOR HOSPITALIZATION:: Chest Pain, acute CHF, new LBBB PAST MEDICAL HISTORY/PAST SURGICAL HISTORY:: Medical History. Diverticulosis. Diverticulosis of colon without diverticulitis. Fibromyalgia. Gastroesophageal reflux disease. GERD (gastroesophageal reflux disease). Hyperlipidemia (10/22/13). Increased BMI. Macular degeneration disease (08/08/17). Polyp of colon. 2017 [place] - 7 years. [place]17[place] [facility] [place]5 YEAR RECALL). 2007 cecal polyp dot. Primary fibromyalgia syndrome (10/22/13). Surgical History. Arthroplasty of knee (~10/2005). Colonoscopy - IV Sedation (03/04/17). [place]14/11[place] [facility] [place] DIVERTICULOSIS. [place]GD - MAC [place]12[place]14/11[place] [facility] [place]. History of arthroscopy of knee. SHOULDER SURGERY. 08/25/14-DR. NELSON PREVIOUS FUNCTIONAL STATUS/SOCIAL/FAMILY SUPPORTS:: Minal lives in [facility] with her , Kit, but they plan to go to [place] for the winter. They have five children. She works as a caregiver. She is independent at baseline. CURRENT FUNCTIONAL STATUS:: Minal was sitting up in bed when CM met with her. She had just returned from having an echo and stress test. Per MD, her stress test was normal, and her echo showed a slightly reduced EF. MD will make medication adjustments, and advised a low salt diet and daily weights. Minal will be discharged today with no services, which she is happy about. ADVANCE DIRECTIVES:: None on file. CM will offer forms. Has patient been provided with info about the portal/API?: Yes Did the patient sign up for the portal?: No CODE STATUS:: Full Code INSURANCE COVERAGE / FINANCIAL ISSUES:: [facility]/ [place] CURRENT HOME/COMMUNITY SERVICES/EQUIPMENT:: No current services or equipment. PRIMARY CARE PHYSICIAN:: Huma Baez POTENTIAL DISCHARGE NEEDS:: Evaluations for further needs, follow up appointments. PATIENT/FAMILY EDUCATION NEEDS:: Review discharge instructions regarding activity levels and medications, discussion of self care needs including ask me three. ANTICIPATED BARRIERS TO DISCHARGE:: None identified. TRANSPORTATION:: Via private vehicle by family. PLAN:: Anticipate Minal will return home when medically cleared. She will be driven home via private vehicle by family. She will follow up with her PCP and discharge plan of care. CM will continue to follow.
--- NOTE | 2021-07-11 13:34 | CHAPLAIN ---
Minal was resting in bed, waiting to have some tests, which she said were scheduled for 8:30 a.m., and it was around 11 am when I spoke with her. I introduced myself, explained my role and offered support. While I was there, someone from arrived to get Minal prepped for her tests, so I left.
[2021-07-11] MEDS: Regadenoson 0.4 MG/5 ML SYR IVP (13:57)
[2021-07-11 15:11] VITALS: BP 126/80; PULSE 84; RESP 16; TEMP 36.6; O2SAT 97
--- NOTE | 2021-07-11 15:58 | W.PM.DS.N ---
Date of service: 07/11/21 Time of Service: 15:59 DS: Diagnosis Discharge Diagnosis (1) Biliary colic: Status: Suspected (2) Acute systolic CHF (congestive heart failure): Status: Acute Asessment and Plan: EF 50% (3) New onset left bundle branch block (LBBB): Status: Acute Asessment and Plan: MPI negative for significant ischemia (4) Corneal abrasion: Status: Acute Asessment and Plan: L eye (5) Cholelithiasis: Status: Chronic (6) Hypertension: Status: Chronic (7) Transaminitis: Status: Chronic (8) Hepatic steatosis: Status: Acute (9) COVID-19 ruled out by laboratory testing: Status: Ruled-out Discharge Plan Disposition Patient Disposition: HOME Condition: Improving Discharge Details Reason For Visit: Chest Pain, Acute CHF, New LBBB Admit Date/Time: 07/10/21 15:33 Admit Provider: Jeanette Guillen Attending Provider: Jeanette Guillen Primary Care Provider: Huma Baez Hospital Course Hospital Course: Ms Barbour is a 70 year old female with PMHx of hypertension, hyperlipidemia, GERD, fibromyalgia, who was observed on [facility] hospitalist service from 07/10/21/ until 07/11/21 for incidentally found acute systolic CHF with EF of 50% as well as new LBBB having presented with sx most consistent with a biliary colic which had resolved by the time of presentation. The patient had ruled out for ACS with three negative troponins. SHe underwent an MPI, which was negative. Her echo revealed LVEF of 50%, mild to moderate mitral calcification and mild mitral regurgitation without any other issues. The ascending aorta was mildly dilated. She is being initiated on metoprolol on discharge. Her NSAIDS are being stopped. She is instructed to follow a 2 gram salt restriction and to weigh herself daily. She is being discharged home with prn lasix. She is being asked to measure her heart rate and blood pressure prior to taking metoprolol and to hold it if her HR<60 or BSP<110. Her US RUQ showed cholelithiasis, but not cholecystitis, but the nature of the patient's symptoms is very suggestive of biliary colic. For this reason, she is being referred to general surgery on discharge for further workup. Patient is stable for discharge home today. Care for patient as well as completion of her discharge summary took 45 minutes on the day of discharge. Home Meds and New Rx's Prescriptions: New atorvastatin 40 mg Tablet 40 mg PO QPM Qty: 30 RF: 0 erythromycin 5 mg/gram (0.5 %) Ointment 1 applic OS TID 10 Days Qty: 0 RF: 0 furosemide 20 mg Tablet 20 mg PO DAILY PRN PRNQty: 10 RF: 0 metoprolol tartrate 25 mg Tablet 12.5 mg PO BID Qty: 60 RF: 0 pantoprazole 40 mg Tablet,Delayed Release (Dr/Ec) 40 mg PO DAILY@0730 Qty: 30 RF: 0 Aundrea 128 2 % Drops 1 drp OS Q6H 10 Days Qty: 0 RF: 0 Refresh Plus 0.5 % Dropperette 1 drp OU QID PRN PRNQty: 30 RF: 0 Continued PreserVision AREDS-2 [id number] hp-kitk-uv-mg capsule 2 tab PO DAILY RF: 0 Varicella-Zoster Ge/As01b/Pf [Shingrix Vial Kit] 50 MCG INJ 50 mcg IM ONCE Qty: 1 RF: 0 Discontinued pravastatin 20 mg tablet 20 mg PO DAILY Qty: 90 RF: 4 hydrochlorothiazide 12.5 mg tablet 12.5 mg PO QAM Qty: 30 RF: 1 ibuprofen 600 mg Tablet 600 mg PO BID PRNRF: 0 omeprazole 20 mg capsule,delayed release(DR/EC) 20 mg PO DAILY PRN (Reason: GERD) Qty: 90 RF: 2 Discharge Instructions Instructions: Heart Failure (DC), Chronic Hypertension (DC) Additional Instructions: Return to the hospital with any fever, bleeding, chest pain, shortness of breath. Limit your salt intake to 2 grams per day. Weigh yourself daily and take lasix (furosemide) if you have gained >3lbs in 3 days. Take your blood pressure and heart rate prior to taking metoprolol. Skip the dose of metoprolol if your heart rate is below 60 or your systolic BP is less than 110. Stand Alone Forms: Nursing Discharge Form Referrals: Huma Baez NP [Primary Care Provider] - Carlene Mccabe DO [OSTEOPATHIC DOCTOR] - Activity:: Activity as Tolerated Equipment/Supplies:: No Equipment Needed Diet:: Low Sodium Discharge Orders Discharge Orders: Discharge Order (Routine); Ordered 07/11/21 Ordered By: Jeanette Guillen DS: Summary Time Spent with Patient providing and/or coordinating discharge services: Greater than 30 minutes Status at Discharge Functional status at discharge: independent ambulation Overall status at discharge: patient is back to baseline Mental Status: mental status grossly normal Speech and Movement: speech and movement normal Mood: congruent mood Affect: normal affect Exam Narrative Exam Narrative: General: Pleasant Middle-aged female, who appears animated and comfortable sitting at the side of the bed Neurological: A&Ox3, no focal deficits Psychiatric: Appropriate speech pattern/content Skin: multiple insect bites on B LE, appear to be mosquitto bites HEENT: Atraumatic, normocephalic, EOMI, MMM, clear oropharynx, no submandibular or cervical lymphadenopathy, no goiter or JVD, L eye with slight injection, mild periorbital edema Cardiovascular: RRR, + ZOEY Lungs: faint crackles L base Gastrointestinal: soft, nontender at the time of my exam, nondistended Genitourinary: deferred Extremities: trace edema BLE's, no c/c. 1+ pedal pulses B Psych Mental Status: mental status grossly normal Speech and Movement: speech and movement normal Mood: congruent mood Affect: normal affect DS: Data Vitals/I&O Vitals and I&O: Vital Signs Temperature 36.6 C 07/11/21 15:11 Temperature Source Tympanic 07/11/21 15:11 Pulse 84 07/11/21 15:11 Pulse Rhythm Irregular 07/11/21 08:00 Pulse 72 07/10/21 16:20 Respiratory Rate 16 07/11/21 15:11 Respiratory Effort Non-Labored 07/11/21 08:00 Respiratory Depth Normal 07/11/21 08:00 Respiratory Pattern Normal 07/11/21 08:00 Blood Pressure 126/80 07/11/21 15:11 Blood Pressure Mean 94 07/10/21 16:16 Blood Pressure Position Supine 07/10/21 09:54 Pulse Oximetry 97 07/11/21 15:11 Oxygen Delivery Method Room Air 07/11/21 15:11 Oxygen Flow Rate 0 07/11/21 15:11 Pain Level 0 07/11/21 15:11 Comment 07/10/21 16:39 Intake & Output 07/10/21 07/11/21 07/11/21 23:59 11:59 23:59 Intake Total 810 / 820 Output Total 850 / 850 950 / 950 Balance -40 / -30 -950 / -950 Weight 94.801 kg 95.7 kg Intake: IV 20 / 30 Oral 790 / 790 Output: Urine 850 / 850 950 / 950 Other: Urine Color Pale Yellow Yellow Urine Appearance Clear Clear Urine Odor None None Comment Void x1 in the toilet. Voiding Methods Toilet Toilet Toilet Data Completed and Pending Completed studies during hospitalization [Text1]: CXR: Findings suggesting pulmonary edema/fluid overload. Please correlate clinically. \ US abdomen: 1. Cholelithiasis but no evidence of acute cholecystitis. 2. Hepatomegaly and hepatic steatosis. 3. Results of this exam have been verbally communicated with provider. Echo: Left Ventricle : Left ventricular systolic function is mildly decreased. The left ventricle is normal size. There is normal left ventricular wall thickness. There is global hypokinesis of the left ventricle. LVEF is 50%. Right Ventricle : Right ventricle is grossly normal in size. Right ventricular systolic function is grossly normal. Atria : The left atrium size is normal. The right atrium size is normal. Mitral Valve : Mild to moderate mitral annular calcification. Trace to mild mitral regurgitation. No evidence of mitral valve stenosis. Great Vessels : The aortic root is normal in size. The ascending aorta is mildly dilated. Aortic arch is normal in caliber. IVC is normal in size and collapses >50% with inspiration. See remainder of study for further details. Labs on day of discharge: Labs from last 24 hours 07/11/21 07/11/21 07/11/21 06:38 06:38 06:38 WBC 5.43 D RBC 4.31 Hgb 13.4 Hct 40.4 MCV 93.7 D MCH 31.1 MCHC 33.2 RDW 15.9 H Plt Count 189 MPV 11.9 H Immature Gran % 0.2 Neutrophils % 64.8 Lymphocytes % 21.7 Monocytes % 9.8 Eosinophils % 2.6 Basophils % 0.9 Nucleated RBC % 0 Absolute Neutrophils 3.52 Absolute Lymphocytes 1.18 L Absolute Monocytes 0.53 Absolute Eosinophils 0.14 Absolute Basophils 0.05 Sodium Potassium Chloride Carbon Dioxide Anion Gap BUN Creatinine Estimated GFR/1.73 m2 Glucose Calcium Magnesium 2.1 Total Bilirubin Conjugated Bilirubin AST ALT Alkaline Phosphatase Troponin I Total Protein Albumin Triglycerides Total Cholesterol LDL Cholesterol, Calc HDL Cholesterol TSH Free T4 SARS-CoV-2 (PCR) Hep Bs Antigen Pending Hep Bs Antibody Pending Hep Bs Antibody, Quant Pending Hep B Core Total Ab Pending Hepatitis C Antibody Pending 07/11/21 07/10/21 07/10/21 06:38 18:21 15:10 WBC RBC Hgb Hct MCV MCH MCHC RDW Plt Count MPV Immature Gran % Neutrophils % Lymphocytes % Monocytes % Eosinophils % Basophils % Nucleated RBC % Absolute Neutrophils Absolute Lymphocytes Absolute Monocytes Absolute Eosinophils Absolute Basophils Sodium 141 Potassium 3.7 Chloride 104 Carbon Dioxide 27.8 Anion Gap 9.2 BUN 12 Creatinine 0.7 Estimated GFR/1.73 m2 >= 60.00 Glucose 97 Calcium 9.1 Magnesium Total Bilirubin 0.5 Conjugated Bilirubin 0.1 AST 87 H ALT 140 H Alkaline Phosphatase 140 H Troponin I < 0.05 Total Protein 6.7 Albumin 3.4 Triglycerides 125 Total Cholesterol 270 H LDL Cholesterol, Calc 180 H HDL Cholesterol 65 TSH Free T4 SARS-CoV-2 (PCR) Negative Hep Bs Antigen Hep Bs Antibody Hep Bs Antibody, Quant Hep B Core Total Ab Hepatitis C Antibody 07/10/21 10:18 WBC RBC Hgb Hct MCV MCH MCHC RDW Plt Count MPV Immature Gran % Neutrophils % Lymphocytes % Monocytes % Eosinophils % Basophils % Nucleated RBC % Absolute Neutrophils Absolute Lymphocytes Absolute Monocytes Absolute Eosinophils Absolute Basophils Sodium Potassium Chloride Carbon Dioxide Anion Gap BUN Creatinine Estimated GFR/1.73 m2 Glucose Calcium Magnesium Total Bilirubin Conjugated Bilirubin AST ALT Alkaline Phosphatase Troponin I Total Protein Albumin Triglycerides Total Cholesterol LDL Cholesterol, Calc HDL Cholesterol TSH 4.27 H Free T4 1.03 SARS-CoV-2 (PCR) Hep Bs Antigen Hep Bs Antibody Hep Bs Antibody, Quant Hep B Core Total Ab Hepatitis C Antibody [facility] Medical History (Updated 07/11/21 @ 16:01 by Jeanette Guillen MD) Diverticulosis Diverticulosis of colon without diverticulitis Fibromyalgia Gastroesophageal reflux disease GERD (gastroesophageal reflux disease) Hyperlipidemia (10/22/13) Hypertension Increased BMI Macular degeneration disease (08/08/17) Polyp of colon 2017 Tone - 7 years. 12/17/11 [facility] [place] ADENOMATOUS POLYPS (5 YEAR RECALL) 2008 cecal polyp dot Primary fibromyalgia syndrome (10/22/13) Surgical History Arthroplasty of knee (~10/2005) Colonoscopy - IV Sedation (03/04/17) Colonoscopy - MAC (12/14/11) [facility] [place]; ADENOMATOUS POLYPS; DIVERTICULOSIS EGD - MAC (12/14/11) [facility] [place]; GERD History of arthroscopy of knee SHOULDER SURGERY 08/25/14-DR. NELSON Family History Mother , age 89 Essential hypertension Asthma Father , 84 Diabetes Essential hypertension Heart disease Sister No problems noted. Brother No problems noted. Maternal Grandfather Heart disease Paternal Grandfather Diabetes Maternal Grandmother Stomach cancer Paternal Grandmother Breast cancer Sister Depression Sister Depression Brother No problems noted. Brother Asthma Son No problems noted. Daughter No problems noted. Social History (Updated 07/05/21 @ 18:12 by Ramya Sprague) Smoking/Tobacco Use Status: Former Tobacco Use tobacco type: cigarettes Quit Date: 04/17/09 Second Hand Exposure: Yes Smoking risk assessment performed?: Yes Alcohol Intake: current Alcohol Intake frequency: a few times a week Alcohol type: beer Drug use: Never Substance use type: does not use Caregiver/Support person: No Household members: spouse Housing: apartment Communication Needs: None Do you need help understanding health information?: Never Pets and animals: No Sexually active: No Do you think of yourself as: straight/heterosexual What is your relationship status?: How often do you talk on the phone with friends or family?: twice per week How often do you get together with friends or relatives?: once per week How often do you attend caodaism or buddhism services?: decline to answer Do you belong to any clubs or organized social groups?: no Panel score (0-1 are the most socially isolated patients): 2 What type of physical activity do you participate in: swimming Duration: > 90 minutes/day Frequency: 5-6 times per week Tisha/Gnosticism: Gnosticism Special tisha needs: No Seatbelt use: always Helmet use: No Drive intox or ride w/intox ross carrier driver: No Do you feel safe at home: Yes Do you feel safe in your relationship?: Yes
--- NOTE | 2021-07-11 16:07 | PDOC.CMDIS ---
- If Service Date Differs Date of service: 07/11/21 Time of Service: 16:07 LACE Index Scoring Tool - Questions: Length of Stay (in days): 1 Acuity (Admit via E.D.?): Yes Comorbidities: Congestive Heart Failure E.D. Visits: 1 - Answers: Total Score: 7 Risk of Readmission: Low Risk Care Management Discharge Reason for Hospitalization: Chest Pain, acute CHF, new LBBB Discharge Plan: Minal will return home with no services at this time. She will be driven home by her . She will follow up with her PCP and discharge plan of care. She is happy to be going home. Patient/Family Education Needs: Review discharge instructions regarding activity levels and medications, discussion of self care needs including ask me three.
[2021-07-12 13:44] LABS: HBs Antibody, Qual Negative (See Note); HBs Antibody, Quant <3.1 mIU/mL (See Note); Hepatitis B Core Antibody Negative (Negative); Hepatitis B surface Ag Negative (Negative); Hepatitis C Ab w Rflx HCV PCR Negative (Negative)
== END 2021-07-11 17:18 | disposition home or self-care (01) ==
LOC: ER 14:26 → MS 16:48
PROVIDERS: Admitting Provider Internal Medicine; Emergency Provider Registered Nurse Emergency; Visit Provider Internal Medicine
DX: R07.89 Other chest pain (principal); I44.7 Left bundle-branch block, unspecified; I11.0 Hypertensive heart disease with heart failure; I50.21 Acute systolic (congestive) heart failure; K76.0 Fatty (change of) liver, not elsewhere classified; Z20.822 Contact with and (suspected) exposure to COVID-19; E78.5 Hyperlipidemia, unspecified; Z87.891 Personal history of nicotine dependence; K21.9 Gastro-esophageal reflux disease without esophagitis; M79.7 Fibromyalgia; K57.30 Diverticulosis of large intestine without perforation or abscess without bleeding; Z79.899 Other long term (current) drug therapy; K80.20 Calculus of gallbladder without cholecystitis without obstruction
CPT/HCPCS: 36415; 78452; 80048; 80053; 80061; 80076; 83690; 86704; 86706; 86803; 87340; 87635; 93005; 93016; 93018; 93306; 99285; J1650; 71046; 76705; 83735; 83880; 84439; 84443; 84484; 85025; 93010; 93017; 99217; 99220; 99284; G0378; J1941; J2785

== ENCOUNTER 2021-07-19 01:42 | Outpatient (CLI) | payer MEDICARE, SELFPAY ==
--- NOTE | 2021-07-19 07:00 | DI.MAMMO_ITS ---
Exam(s) MAMMO SCREENING EXAM: MAMMO SCREENING CLINICAL HISTORY: screening,Z12.39. TECHNIQUE: Bilateral full field digital CC and MLO mammographic images were obtained with 3D tomosyn thesis and utilizing computer aided detection (CAD). COMPARISON: Prior mammograms dating back to 2011, the most recent being April 2020. FINDINGS: There are no new spiculated masses nor malignant appearing microcalcification groups. There is no significant architectural distortion nor skin thickening-retraction. IMPRESSION: No radiographic evidence of malignancy. BI-RADS Category 1 - Negative Breast Density - Category A - Almost entirely fatty Breast density Category C or D implies that the patient has dense breast tissue. Dense breast tissue can make it harder to find cancer on a mammogram. Dense breast tissue is also associated with an incr eased risk of breast cancer. This information about the result of the mammogram report was provided to the patient to raise their awareness. Use this report when you speak with the patient about their risks for breast cancer, which includes their family history. At that time, you may recommend additional screening tests (Ultrasoun d or MRI) as these tests may add significant information. A negative radiographic report should not delay biopsy if a dominant or clinically suspicious mass is present. Up to ten percent of cancers are not identified on mammography. A negative report may reinforce clinical impression. Adenosis and dense breasts may obscure an underlying neoplasm. False positive reports average 6 to 10%. Patient will receive a letter notifying them of these results.
== END 2021-07-19 02:02 ==
DX: Z12.31 Encounter for screening mammogram for malignant neoplasm of breast (principal)
CPT/HCPCS: 77063; 77067

== ENCOUNTER → 2021-07-31 08:43 | Outpatient (BNVA) | payer MEDICARE, SELFPAY ==
--- NOTE | 2021-07-31 09:17 | W.ANESCON ---
General Date of Service Date of Service: 07/31/21 Reason for Consult Requesting Provider: Carlene Mccabe How Consult Conducted:: Chart Review Reason for Consult:: Recent acute CHF, known cardiac history. Consult Recommendation after Review:: It appears to be reasonable for the patient to continue for general anesthesia based on my chart review. Meds Allergies and Home Medications Allergies Allergy/AdvReac Type Severity Reaction Status Date / Time No Known Allergies Allergy Verified 07/31/21 08:46 Home Medication Medication Instructions Recorded vit C 250 mg-vit E 90 mg-zinc 40 2 tab PO DAILY cap 03/31/19 mg-copper 1 [id number] capsule atorvastatin 40 mg PO QPM #30 tab 07/11/21 carboxymethylcellulose sodium 1 drp OU QID PRN PRN #30 ea 07/11/21 [Refresh Plus] furosemide 20 mg PO DAILY PRN PRN #10 tab 07/11/21 metoprolol tartrate 12.5 mg PO BID #60 tab 07/11/21 pantoprazole 40 mg PO DAILY@0730 #30 tab 07/11/21 aspirin 81 mg tablet,delayed 81 mg PO DAILY 07/31/21 release PFSH Active Problems Active Problems: Problem Status Onset Code Cholelithiasis K80.20 Acute systolic CHF (congestive heart failure) I50.21 Corneal abrasion S05.00XA Hepatic steatosis K76.0 Transaminitis R74.01 Acute CHF I50.9 New onset left bundle branch block (LBBB) I44.7 Chest discomfort R07.89 Essential hypertension I10 Hip bursitis, left M70.72 Constipation K59.00 Chronic low back pain M54.5, G89.29 Primary osteoarthritis of right knee M17.11 Lumbar spinal stenosis M48.061 Primary osteoarthritis of left knee M17.12 History of arthroscopy of knee Z98.890 Diverticulosis of colon without diverticulitis K57.30 Gastroesophageal reflux disease K21.9 Hyperlipidemia 10/22/13 E78.5 Increased BMI R63.8 Macular degeneration disease 08/08/17 H35.30 Polyp of colon K63.5 Primary fibromyalgia syndrome 10/22/13 M79.7 Medical History Medical History (Updated 07/26/21 @ 15:10 by Huma Baez NP) Diverticulosis Diverticulosis of colon without diverticulitis Fibromyalgia Gastroesophageal reflux disease GERD (gastroesophageal reflux disease) Hyperlipidemia (12/12/13) Hypertension Increased BMI Macular degeneration disease (08/08/17) Polyp of colon 2017 Tone - 7 years. 12/17/11 [facility] [place] ADENOMATOUS POLYPS (5 YEAR RECALL) 2008 cecal polyp dto Primary fibromyalgia syndrome (10/22/13) Surgical History Surgical History Arthroplasty of knee (~10/2005) Colonoscopy - IV Sedation (03/04/17) Colonoscopy - MAC (12/14/11) [facility] [place]; ADENOMATOUS POLYPS; DIVERTICULOSIS EGD - MAC (12/14/11) [facility] [place]; GERD History of arthroscopy of knee SHOULDER SURGERY 08/25/14-DR. NELSON Tobacco Smoking/Tobacco Use Status: Former Tobacco Use Passive smoking exposure: Yes Second hand exposure: Yes Alcohol Alcohol Intake: current Alcohol intake frequency: a few times a week Alcohol type: beer Substance Use Substance use: Never Substance use type: does not use Vital Signs & Lab Results Point of Care Results Nursing Point of Care Results: No Data to Display Lab Results Blood Type / Crossmatch: No Data to Display Complete Blood Count: White Blood Count 5.43 10^3/uL (4.4-10.8) 07/11/21 06:38 07/11/21 Red Blood Count 4.31 10^6/uL (3.93-5.22) 07/11/21 06:38 07/11/21 Hemoglobin 13.4 g/dL (11.2-15.7) 07/11/21 06:38 07/11/21 Hematocrit 40.4 % (36.0-46.0) 07/11/21 06:38 07/11/21 Platelet Count 189 10^3/uL (130-400) 07/11/21 06:38 07/11/21 Complete Metabolic Panel: Sodium Level 141 mmol/L (136-145) 07/11/21 06:38 07/11/21 Potassium Level 3.7 mmol/L (3.5-5.1) 07/11/21 06:38 07/11/21 Chloride Level 104 mmol/L (98-107) 07/11/21 06:38 07/11/21 Carbon Dioxide Level 27.8 mmol/L (21.0-32.0) 07/11/21 06:38 07/11/21 Blood Urea Nitrogen 12 mg/dL (7-18) 07/11/21 06:38 07/11/21 Creatinine 0.7 mg/dL (0.55-1.02) 07/11/21 06:38 07/11/21 Estimated GFR/1.73 m2 >= 60.00 (mL/min/1.73m2) 07/11/21 06:38 07/11/21 Magnesium Level 2.1 mg/dL (1.8-2.4) 07/11/21 06:38 07/11/21 Calcium Level 9.1 mg/dL (8.5-10.1) 07/11/21 06:38 07/11/21 Albumin 3.4 g/dL (3.4-5.0) 07/11/21 06:38 07/11/21 Glucose Level 97 mg/dL (74-106) 07/11/21 06:38 07/11/21 Liver Function Panel: Alanine Aminotransferase (ALT/SGPT) 140 U/L (14-59) H 07/11/21 06:38 07/11/21 Aspartate Amino Transf (AST/SGOT) 87 U/L (15-37) H 07/11/21 06:38 07/11/21 Coagulation Panel: No Data to Display Cardiac Panel: Troponin I < 0.05 ng/mL (<0.06) 07/10/21 18:21 07/10/21 PX-Wzc-[id number]-Type Natriuretic Peptide 826 pg/mL (<300) H 07/10/21 10:25 07/10/21 Arterial Blood Gas: No Data to Display Venous Blood Gas: No Data to Display Pancreas Panel: Lipase 159 U/L (73-393) 07/10/21 10:18 07/10/21 Thyroid Panel: Thyroid Stimulating Hormone (TSH) 4.27 uIU/mL (0.36-3.74) H 07/10/21 10:18 07/10/21 Infectious Disease: Coronavirus (COVID-19)(PCR) Negative (Negative) 07/10/21 15:10 07/10/21 Coronavirus 2019 Source Nasal/Nares 07/10/21 15:10 07/10/21 Hepatitis B Surface Antigen Negative (Negative) 07/11/21 06:38 07/11/21 Hepatitis C Antibody Negative (Negative) 07/11/21 06:38 07/11/21 Blood Cultures: No Data to Display Toxicology Panel: No Data to Display Imaging and Studies Imaging and Studies EKG Summary: 07/11/2021 Conclusion Sinus rhythm...normal P axis, V-rate 60- 99 Left bundle branch block...QRSd>120, broad/notched R ST elevation secondary to IVCD...Multiple VCG criteria Stress Test Summary: 07/11/2021 Stress ECG Conclusion 1. There is a pharmacological stress test. Patient no symptoms suggestive of ischemia. 2. EKG portion of this exam is nondiagnostic. Echocardiogram Summary: 07/11/2021 Conclusion Left Ventricle : Left ventricular systolic function is mildly decreased. The left ventricle is normal size. There is normal left ventricular wall thickness. There is global hypokinesis of the left ventricle. LVEF is 50%. Right Ventricle : Right ventricle is grossly normal in size. Right ventricular systolic function is grossly normal. Atria : The left atrium size is normal. The right atrium size is normal. Mitral Valve : Mild to moderate mitral annular calcification. Trace to mild mitral regurgitation. No evidence of mitral valve stenosis. Great Vessels : The aortic root is normal in size. The ascending aorta is mildly dilated. Aortic arch is normal in caliber. IVC is normal in size and collapses >50% with inspiration. See remainder of study for further details.
== END ==
PROVIDERS: Visit Provider Surgery
DX: K80.20 Calculus of gallbladder without cholecystitis without obstruction (principal); K80.50 Calculus of bile duct without cholangitis or cholecystitis without obstruction
CPT/HCPCS: 99202; 99213

== ENCOUNTER 2021-08-07 02:51 | Outpatient (CLI) | payer MEDICARE, SELFPAY ==
[2021-08-07 10:33] LABS: Source Nasal/Nares
[2021-08-07 13:33] LABS: COVID-19 PCR Negative (Negative)
== END 2021-08-07 02:52 | disposition home or self-care (01) ==
LOC: LBO 02:51
PROVIDERS: Visit Provider Surgery
DX: Z20.822 Contact with and (suspected) exposure to COVID-19 (principal); Z01.818 Encounter for other preprocedural examination
CPT/HCPCS: 87635

== ENCOUNTER 2021-08-08 06:05 | Day surgery (SDC) | payer MEDICARE, SELFPAY ==
[2021-08-08] VITALS (7 sets, daily range): BP systolic 122–160; BP diastolic 60–89; PULSE 57–67; RESP 14–20; TEMP 36.2–36.5; O2SAT 95–97; BMI 34.7
[2021-08-08] MEDS: Gabapentin 300 MG CAP PO (06:30)
[2021-08-08] MEDS: Acetaminophen 500 MG TAB 1000 MG PO (06:30)
--- NOTE | 2021-08-08 06:51 | W.ANESPRE ---
General Info Date of Service Date Performed: 08/08/21 Height: 5 ft 5 in Weight: 94.5 kg Body Mass Index (BMI): 34.7 Surgical Procedure: Operation Date: 08/08/21 07:40 Proposed Procedures Side Surgeon p Cholecystectomy Laparoscopic Carlene Mccabe DO Meds Allergies and Home Medications Allergies Allergy/AdvReac Type Severity Reaction Status Date / Time No Known Allergies Allergy Verified 08/08/21 06:28 Home Medication Medication Instructions Recorded atorvastatin 40 mg PO QPM #30 tab 07/11/21 carboxymethylcellulose sodium 1 drp OU QID PRN PRN #30 ea 07/11/21 [Refresh Plus] furosemide 20 mg PO DAILY PRN PRN #10 tab 07/11/21 metoprolol tartrate 12.5 mg PO BID #60 tab 07/11/21 pantoprazole 40 mg PO DAILY@0730 #30 tab 07/11/21 aspirin 81 mg tablet,delayed 81 mg PO DAILY 07/31/21 release Current Visit Medications: Current Medications Generic Name Dose Route Start Last Admin Trade Name Bernice PRN Reason Stop Dose Admin Acetaminophen 1,000 mg 08/08/21 06:00 08/08/21 06:30 Acetaminophen 500 Mg Tab PO 08/08/21 16:00 1,000 mg PREOP JEAN MARIE Administration Gabapentin 300 mg 08/08/21 06:00 08/08/21 06:30 Gabapentin 300 Mg Cap PO 08/08/21 16:00 300 mg PREOP JEAN MARIE Administration Ringer's Solution 1,000 mls @ 80 mls/hr 08/08/21 06:00 IV 09/06/21 23:59 INFUSION JEAN MARIE Cefazolin Sodium/Dextrose 2 gm in 50 mls @ 100 mls/hr 08/08/21 06:00 Ancef Duplex IVPB 08/08/21 16:00 PREOP JEAN MARIE IV Miscellaneous Supplies 1 each 08/08/21 06:00 Iv Access IV 09/06/21 23:59 DIRECTED JEAN MARIE Sodium Chloride 0 ml 08/08/21 06:00 Normal Saline Flush 10 Ml Syr IV 09/06/21 23:59 PRN PRN Sodium Chloride 0 ml 08/08/21 06:00 Normal Saline 10 Ml Vial IJ 09/06/21 23:59 DIRECTED PRN Sterile Water 0 ml 08/08/21 06:00 Water,Injection,Sterile 10 Ml Vial IJ 09/06/21 23:59 DIRECTED PRN PFS Active Problems Active Problems: Problem Status Onset Code Cholelithiasis K80.20 Acute systolic CHF (congestive heart failure) I50.21 Corneal abrasion S05.00XA Hepatic steatosis K76.0 Transaminitis R74.01 Acute CHF I50.9 New onset left bundle branch block (LBBB) I44.7 Chest discomfort R07.89 Essential hypertension I10 Hip bursitis, left M70.72 Constipation K59.00 Chronic low back pain M54.5, G89.29 Primary osteoarthritis of right knee M17.11 Lumbar spinal stenosis M48.061 Primary osteoarthritis of left knee M17.12 History of arthroscopy of knee Z98.890 Diverticulosis of colon without diverticulitis K57.30 Gastroesophageal reflux disease K21.9 Hyperlipidemia 10/22/13 E78.5 Increased BMI R63.8 Macular degeneration disease 08/08/17 H35.30 Polyp of colon K63.5 Primary fibromyalgia syndrome 10/22/13 M79.7 Medical History Medical History Diverticulosis Diverticulosis of colon without diverticulitis Fibromyalgia Gastroesophageal reflux disease GERD (gastroesophageal reflux disease) Hyperlipidemia (10/22/13) Hypertension Increased BMI Macular degeneration disease (08/08/17) Polyp of colon 2017 [place] - 7 years. [place]17/[place] [facility] [place]5 YEAR RECALL) 2008 cecal polyp dot Primary fibromyalgia syndrome (10/22/13) Surgical History Surgical History (Updated 08/08/21 @ 06:44 by Agnes Raya) Arthroplasty of knee (~10/2005) Colonoscopy - IV Sedation (03/04/17) [place] [facility] [place] DIVERTICULOSIS [place]GD - MAC [place]12[place]14/11[place] [facility] [place] History of arthroscopy of knee Hx of tonsillectomy SHOULDER SURGERY 08/25/14-DR. NELSON Tobacco Smoking/Tobacco Use Status: Former Tobacco Use Passive smoking exposure: Yes Second hand exposure: Yes Alcohol Alcohol Intake: current Alcohol intake frequency: a few times a week Alcohol type: beer Substance Use Substance use: Never Substance use type: does not use Vital Signs and Lab Results Vital Signs Most Recent Vital Signs in EMR: Most Recent Vital Signs Temp Pulse Resp Pulse Ox 36.5 C 57 L 16 96 08/08/21 06:15 08/08/21 06:15 08/08/21 06:15 08/08/21 06:15 Lab Results Blood Type / Crossmatch: No Data to Display Complete Blood Count: White Blood Count 5.43 10^3/uL (4.4-10.8) 07/11/21 06:38 07/11/21 Red Blood Count 4.31 10^6/uL (3.93-5.22) 07/11/21 06:38 07/11/21 Hemoglobin 13.4 g/dL (11.2-15.7) 07/11/21 06:38 07/11/21 Hematocrit 40.4 % (36.0-46.0) 07/11/21 06:38 07/11/21 Platelet Count 189 10^3/uL (130-400) 07/11/21 06:38 07/11/21 Complete Metabolic Panel: Sodium Level 141 mmol/L (136-145) 07/11/21 06:38 07/11/21 Potassium Level 3.7 mmol/L (3.5-5.1) 07/11/21 06:38 07/11/21 Chloride Level 104 mmol/L (98-107) 07/11/21 06:38 07/11/21 Carbon Dioxide Level 27.8 mmol/L (21.0-32.0) 07/11/21 06:38 07/11/21 Blood Urea Nitrogen 12 mg/dL (7-18) 07/11/21 06:38 07/11/21 Creatinine 0.7 mg/dL (0.55-1.02) 07/11/21 06:38 07/11/21 Estimated GFR/1.73 m2 >= 60.00 (mL/min/1.73m2) 07/11/21 06:38 07/11/21 Magnesium Level 2.1 mg/dL (1.8-2.4) 07/11/21 06:38 07/11/21 Calcium Level 9.1 mg/dL (8.5-10.1) 07/11/21 06:38 07/11/21 Albumin 3.4 g/dL (3.4-5.0) 07/11/21 06:38 07/11/21 Glucose Level 97 mg/dL (74-106) 07/11/21 06:38 07/11/21 Liver Function Panel: Alanine Aminotransferase (ALT/SGPT) 140 U/L (14-59) H 07/11/21 06:38 07/11/21 Aspartate Amino Transf (AST/SGOT) 87 U/L (15-37) H 07/11/21 06:38 07/11/21 Coagulation Panel: No Data to Display Cardiac Panel: Troponin I < 0.05 ng/mL (<0.06) 07/10/21 18:21 07/10/21 MX-Huw-G-Type Natriuretic Peptide 826 pg/mL (<300) H 07/10/21 10:25 07/10/21 Arterial Blood Gas: No Data to Display Venous Blood Gas: No Data to Display Pancreas Panel: Lipase 159 U/L (73-393) 07/10/21 10:18 07/10/21 Thyroid Panel: Thyroid Stimulating Hormone (TSH) 4.27 uIU/mL (0.36-3.74) H 07/10/21 10:18 07/10/21 Infectious Disease: Coronavirus (COVID-19)(PCR) Negative (Negative) 08/07/21 09:07 08/07/21 Coronavirus 2019 Source Nasal/Nares 08/07/21 09:07 08/07/21 Hepatitis B Surface Antigen Negative (Negative) 07/11/21 06:38 07/11/21 Hepatitis C Antibody Negative (Negative) 07/11/21 06:38 07/11/21 Blood Cultures: No Data to Display Toxicology Panel: No Data to Display Imaging and Studies Imaging and Studies EKG Summary: 07/11/2021 Conclusion Sinus rhythm...normal P axis, V-rate 60- 99 Left bundle branch block...QRSd>120, broad/notched R ST elevation secondary to IVCD...Multiple VCG criteria Stress Test Summary: 07/11/2021 Stress ECG Conclusion 1. There is a pharmacological stress test. Patient no symptoms suggestive of ischemia. 2. EKG portion of this exam is nondiagnostic. Echocardiogram Summary: 07/11/2021 Conclusion Left Ventricle : Left ventricular systolic function is mildly decreased. The left ventricle is normal size. There is normal left ventricular wall thickness. There is global hypokinesis of the left ventricle. LVEF is 50%. Right Ventricle : Right ventricle is grossly normal in size. Right ventricular systolic function is grossly normal. Atria : The left atrium size is normal. The right atrium size is normal. Mitral Valve : Mild to moderate mitral annular calcification. Trace to mild mitral regurgitation. No evidence of mitral valve stenosis. Great Vessels : The aortic root is normal in size. The ascending aorta is mildly dilated. Aortic arch is normal in caliber. IVC is normal in size and collapses >50% with inspiration. See remainder of study for further details. Anesthesia Assessment and Plan Anesthesia History Personal History: No History of Anesthesia Complications Family History: No Family History of Anesthesia Complications Exercise Tolerance Exercise Tolerance: Metabolic Equivalents>4 Pertinent Negatives Pertinent Negatives: No Symptoms of GERD, No Major Cardiovascular Symptoms or Complaints, No Major Pulmonary Symptoms or Complaints and No History of CVA/TIA Cardiac & Pulmonary Exam Cardiac Exam: Normal S1/S2 Heart Sounds Pulmonary Exam: Clear Bilateral Breath Sounds Airway Exam Known Difficult Airway: No Mallampati Class: 1 Mouth Opening: Normal (> 3cm) Thyromental Distance: Greater than 3 cm Neck Range of Motion: Full ROM Neck Circumference: Normal Teeth Condition: Removable Dentures/Plates Upper (Left at home) ASA Classification ASA Score: ASA 3 Emergency Case?: No NPO Status NPO Status: NPO Clears >2 hours, Solids >8 hours Anesthesia Plan Resuscitation Status: Full Code Anesthesia Technique: General Anesthesia Airway Planned: Endotracheal Tube Monitors Used: Standard Monitors
[2021-08-08] MEDS: Lactated Ringers 1,000 ML 80 ML IV (06:55)
--- NOTE | 2021-08-08 06:58 | W.ANESPRE ---
General Info Height: 5 ft 5 in Weight: 94.5 kg Body Mass Index (BMI): 34.7 Surgical Procedure: Operation Date: 08/08/21 07:40 Proposed Procedures Side Surgeon p Cholecystectomy Laparoscopic DO Neva Oneill Allergies and Home Medications Allergies Allergy/AdvReac Type Severity Reaction Status Date / Time No Known Allergies Allergy Verified 08/08/21 06:28 Home Medication Medication Instructions Recorded atorvastatin 40 mg PO QPM #30 tab 07/11/21 carboxymethylcellulose sodium 1 drp OU QID PRN PRN #30 ea 07/11/21 [Refresh Plus] furosemide 20 mg PO DAILY PRN PRN #10 tab 07/11/21 metoprolol tartrate 12.5 mg PO BID #60 tab 07/11/21 pantoprazole 40 mg PO DAILY@0730 #30 tab 07/11/21 aspirin 81 mg tablet,delayed 81 mg PO DAILY 07/31/21 release Current Visit Medications: Current Medications Generic Name Dose Route Start Last Admin Trade Name Freq PRN Reason Stop Dose Admin Acetaminophen 1,000 mg 08/08/21 06:00 08/08/21 06:30 Acetaminophen 500 Mg Tab PO 08/08/21 16:00 1,000 mg PREOP JEAN MARIE Administration Gabapentin 300 mg 08/08/21 06:00 08/08/21 06:30 Gabapentin 300 Mg Cap PO 08/08/21 16:00 300 mg PREOP JEAN MARIE Administration Ringer's Solution 1,000 mls @ 80 mls/hr 08/08/21 06:00 08/08/21 06:55 IV 09/06/21 23:59 80 mls/hr INFUSION JEAN MARIE Administration Cefazolin Sodium/Dextrose 2 gm in 50 mls @ 100 mls/hr 08/08/21 06:00 Ancef Duplex IVPB 08/08/21 16:00 PREOP JEAN MARIE IV Miscellaneous Supplies 1 each 08/08/21 06:00 Iv Access IV 09/06/21 23:59 DIRECTED JEAN MARIE Sodium Chloride 0 ml 08/08/21 06:00 Normal Saline Flush 10 Ml Syr IV 09/06/21 23:59 PRN PRN Sodium Chloride 0 ml 08/08/21 06:00 Normal Saline 10 Ml Vial IJ 09/06/21 23:59 DIRECTED PRN Sterile Water 0 ml 08/08/21 06:00 Water,Injection,Sterile 10 Ml Vial IJ 09/06/21 23:59 DIRECTED PRN PFSH Active Problems Active Problems: Problem Status Onset Code Primary osteoarthritis of left knee M17.12 Lumbar spinal stenosis M48.061 Primary osteoarthritis of right knee M17.11 Chronic low back pain M54.5, G89.29 Constipation K59.00 Hip bursitis, left M70.72 Essential hypertension I10 Chest discomfort R07.89 New onset left bundle branch block (LBBB) I44.7 Acute CHF I50.9 Transaminitis R74.01 Hepatic steatosis K76.0 Corneal abrasion S05.00XA Acute systolic CHF (congestive heart failure) I50.21 Cholelithiasis K80.20 History of arthroscopy of knee Z98.890 Diverticulosis of colon without diverticulitis K57.30 Gastroesophageal reflux disease K21.9 Hyperlipidemia 10/22/13 E78.5 Increased BMI R63.8 Macular degeneration disease 08/08/17 H35.30 Polyp of colon K63.5 Primary fibromyalgia syndrome 10/22/13 M79.7 Medical History Medical History Diverticulosis Diverticulosis of colon without diverticulitis Fibromyalgia Gastroesophageal reflux disease GERD (gastroesophageal reflux disease) Hyperlipidemia (10/22/13) Hypertension Increased BMI Macular degeneration disease (08/08/17) Polyp of colon 2017 [place]one - 7 years. [place]17[place] [facility] [place]5 YEAR RECALL) 2008 cecal polyp dot Primary fibromyalgia syndrome (10/22/13) Surgical History Surgical History (Updated 08/08/21 @ 06:44 by Agnes Raya) Arthroplasty of knee (~10/2005) Colonoscopy - IV Sedation (03/04/17) [place] MAC [place]12[place]14[place]11[place] [facility] [place]; DIVERTICULOSIS [place]GD [place]12[place]14/[place] [facility] [place] History of arthroscopy of knee Hx of tonsillectomy SHOULDER SURGERY 08/25/14-DR. NELSON Tobacco Smoking/Tobacco Use Status: Former Tobacco Use Passive smoking exposure: Yes Second hand exposure: Yes Alcohol Alcohol Intake: current Alcohol intake frequency: a few times a week Alcohol type: beer Substance Use Substance use: Never Substance use type: does not use Vital Signs and Lab Results Vital Signs Most Recent Vital Signs in EMR: Most Recent Vital Signs Temp Pulse Resp Pulse Ox 36.5 C 57 L 16 96 08/08/21 06:15 08/08/21 06:15 08/08/21 06:15 08/08/21 06:15 Lab Results Blood Type / Crossmatch: No Data to Display Complete Blood Count: White Blood Count 5.43 10^3/uL (4.4-10.8) 07/11/21 06:38 07/11/21 Red Blood Count 4.31 10^6/uL (3.93-5.22) 07/11/21 06:38 07/11/21 Hemoglobin 13.4 g/dL (11.2-15.7) 07/11/21 06:38 07/11/21 Hematocrit 40.4 % (36.0-46.0) 07/11/21 06:38 07/11/21 Platelet Count 189 10^3/uL (130-400) 07/11/21 06:38 07/11/21 Complete Metabolic Panel: Sodium Level 141 mmol/L (136-145) 07/11/21 06:38 07/11/21 Potassium Level 3.7 mmol/L (3.5-5.1) 07/11/21 06:38 07/11/21 Chloride Level 104 mmol/L (98-107) 07/11/21 06:38 07/11/21 Carbon Dioxide Level 27.8 mmol/L (21.0-32.0) 07/11/21 06:38 07/11/21 Blood Urea Nitrogen 12 mg/dL (7-18) 07/11/21 06:38 07/11/21 Creatinine 0.7 mg/dL (0.55-1.02) 07/11/21 06:38 07/11/21 Estimated GFR/1.73 m2 >= 60.00 (mL/min/1.73m2) 07/11/21 06:38 07/11/21 Magnesium Level 2.1 mg/dL (1.8-2.4) 07/11/21 06:38 07/11/21 Calcium Level 9.1 mg/dL (8.5-10.1) 07/11/21 06:38 07/11/21 Albumin 3.4 g/dL (3.4-5.0) 07/11/21 06:38 07/11/21 Glucose Level 97 mg/dL (74-106) 07/11/21 06:38 07/11/21 Liver Function Panel: Alanine Aminotransferase (ALT/SGPT) 140 U/L (14-59) H 07/11/21 06:38 07/11/21 Aspartate Amino Transf (AST/SGOT) 87 U/L (15-37) H 07/11/21 06:38 07/11/21 Coagulation Panel: No Data to Display Cardiac Panel: Troponin I < 0.05 ng/mL (<0.06) 07/10/21 18:21 07/10/21 WR-[id number]-B-Type Natriuretic Peptide 826 pg/mL (<300) H 07/10/21 10:25 07/10/21 Arterial Blood Gas: No Data to Display Venous Blood Gas: No Data to Display Pancreas Panel: Lipase 159 U/L (73-393) 07/10/21 10:18 07/10/21 Thyroid Panel: Thyroid Stimulating Hormone (TSH) 4.27 uIU/mL (0.36-3.74) H 07/10/21 10:18 07/10/21 Infectious Disease: Coronavirus (COVID-19)(PCR) Negative (Negative) 08/07/21 09:07 08/07/21 Coronavirus 2019 Source Nasal/Nares 08/07/21 09:07 08/07/21 Hepatitis B Surface Antigen Negative (Negative) 07/11/21 06:38 07/11/21 Hepatitis C Antibody Negative (Negative) 07/11/21 06:38 07/11/21 Blood Cultures: No Data to Display Toxicology Panel: No Data to Display Imaging and Studies Imaging and Studies EKG Summary: 07/11/2021 Conclusion Sinus rhythm...normal P axis, V-rate 60- 99 Left bundle branch block...QRSd>120, broad/notched R ST elevation secondary to IVCD...Multiple VCG criteria Stress Test Summary: 07/11/2021 Stress ECG Conclusion 1. There is a pharmacological stress test. Patient no symptoms suggestive of ischemia. 2. EKG portion of this exam is nondiagnostic. Echocardiogram Summary: 07/11/2021 Conclusion Left Ventricle : Left ventricular systolic function is mildly decreased. The left ventricle is normal size. There is normal left ventricular wall thickness. There is global hypokinesis of the left ventricle. LVEF is 50%. Right Ventricle : Right ventricle is grossly normal in size. Right ventricular systolic function is grossly normal. Atria : The left atrium size is normal. The right atrium size is normal. Mitral Valve : Mild to moderate mitral annular calcification. Trace to mild mitral regurgitation. No evidence of mitral valve stenosis. Great Vessels : The aortic root is normal in size. The ascending aorta is mildly dilated. Aortic arch is normal in caliber. IVC is normal in size and collapses >50% with inspiration. See remainder of study for further details. Anesthesia Assessment and Plan Anesthesia History Personal History: No History of Anesthesia Complications Family History: No Family History of Anesthesia Complications
--- NOTE | 2021-08-08 07:20 | ROE_ITS ---
Date of service: 08/08/21 Time of Service: 07:21 Operative Note Operative Note DATE OF PROCEDURE: 08/08/21 PRE-OP DIAGNOSIS: chronic marian w/ stones SURGEON: Carlene Houser [employer] SUPERVISOR: Katerina Lester ANESTHESIA TYPE: Local By Surgeon and General LMA/ETT Refer to Anesthesia Record Procedure Description: INDICATIONS: The pt is seen at the request of there PCP regarding acute on chronic cholecystitis, cholelithiasis. The pt has failed outpt conservative medical measures and is here today for laparoscopic cholecys tectomy. Informed consent was obtained, explaining risks and benefits of the procedure including but not limited to bleeding, infection, pneumonia, blood clots, possible damage to bowel, bladder, blood vessels, bile ducts, possible open procedure, complications of general anesthesia and other unforetold complications. PROCEDURE: The patient agrees and is brought to the operative room suite and placed in supine position. Anesthesia was administered per the Department of Anesthesia. The patient did receive IV antibiotics. NG tube and Rodriguez catheter are placed. The patient was prepped and draped in the usual sterile fashion using DuraPrep scrub solution. Pause for the cause was done. 20 mL of 1% buffered lidocaine was used for local anesthetization. A stab incision was made in the umbilicus and the Verres inserted. Drop test was positive and insufflation was begun. When 15 mm of pressure was noted on the monitor, the Veress was removed and #5 port inserted. The camera was inserted through the port and shows no damage to underlying structures. A 10 mm port was then placed in the epigastric position under direct visualization following creation of local field blocks as well as two 5 mm ports in the right upper quadrant. The gallbladder fundus was grasped and retracted towards the right shoulder. Infundibulum was grasped and retracted laterally. The hepat-duodenal ligament is entered. The cystic duct and artery are dissected out and the most inferior portion of the gallbladder plate is removed from the liver and the critical view of safety was obtained after clearing away all fatty material. Endo Clips were placed across the duct and artery and these structures are divided. The remainder of the gallbladder was excised from the liver bed. The gallbladder was placed in a bag and brought out. Examination of the gallbladder shows indeed the cystic duct and artery to have been divided. The remainder of the abdomen was copiously irrigated with a liter of saline. All saline is removed. There is no bleeding or bile leakage from the liver bed or the clips sites. An EndoClose needle was used to close the 10 mm port site with an 0 Vicryl. All ports and instruments are removed. SPonge and needle counts are correct. Pneumoperitoneum is evacuated and the port sites are monitored to make sure there is no bleeding at the time of desufflation. Port sites are irrigated and the skin is closed with 4-0 Monocryl in a running subcuticular fashion. Skin glue sterile dressings are applied. The patient tolerated the procedure well without complications, transferred to the recovery room in stable condition. CARLENE HOUSER, DO
[2021-08-08] MEDS: ceFAZolin 2 GM/50 ML BAG IVPB (07:57)
[2021-08-08] MEDS: Bupivacaine 0.25% Pres-Free 30 ML VIAL (08:15)
[2021-08-08] MEDS: Cellulose,Oxidized 4X8 1 PACKET MC (08:30)
--- NOTE | 2021-08-08 08:33 | GB_PTH ---
PATIENT: Minal Barbour LOC: [facility] U#:[id number] AGE/SX: 70/F ROOM: RE08/08/[address]: Carlene Mccabe : 1950 BED: DIS: 08/08/2021 SPEC #: [id number] RECD: 08/08/21 12:42 STATUS: ISMAEL REQ #: [id number] CHRISTIANO: 08/08/21 08:[address]: Carlene Mccabe DEPT: Surgical Specimen RECD BY: Rashmi Taylor ENTERED: 08/08/21 12:42 SP TYPE: GB OTHR DR: Hmua Baez APRN Tissues: 1 - GALLBLADDER Procedures: GROSS AND MICRO LEVEL 3 Comments: [id number]
--- NOTE | 2021-08-08 08:53 | W.PM.DSUDISC ---
Discharge Plan Disposition Patient Disposition: HOME Condition: Good Discharge Details Reason For Visit: gallbladder removal Attending Provider: Carlene Mccabe Primary Care Provider: Huma Baez Home Meds and New Rx's Prescriptions: New tramadol [Ultram] 50 mg tablet 50 mg PO Q6H PRNQty: 10 RF: 0 ondansetron HCl [Zofran] 4 mg tablet 4 mg PO Q6H PRNQty: 4 RF: 0 Continued aspirin 81 mg tablet,delayed release (DR/EC) 81 mg PO DAILY RF: 0 atorvastatin 40 mg Tablet 40 mg PO QPM Qty: 30 RF: 0 furosemide 20 mg Tablet 20 mg PO DAILY PRN PRNQty: 10 RF: 0 metoprolol tartrate 25 mg Tablet 12.5 mg PO BID Qty: 60 RF: 0 pantoprazole 40 mg Tablet,Delayed Release (Dr/Ec) 40 mg PO DAILY@0730 Qty: 30 RF: 0 Refresh Plus 0.5 % Dropperette 1 drp OU QID PRN PRNQty: 30 RF: 0 Discharge Instructions Additional Instructions: Care after Gallbladder Surgery -Pain control: For the first 72 hours after surgery, take you pain meds continuously and not just when you have pain. Alternate Tylenol 1000mg by mouth every 8 hours, and Ibuprofen 600mg every 6 hours. Make sure you take ibuprofen with food and not on an empty stomach. Use the tramadol for breakthrough pain- pain that is greater than a 7. - Use ICE! Ice really helps to keep the swelling down, and swelling causes pain. Twenty minutes on, and then off, continuously for the first 72hours. After the first 72hrs, you can just use the Tylenol, ibuprofen or Celebrex, and ice, when you have pain. If you are taking narcotic pain medication, follow the instructions on the label and do not drive. Pain medications can make you very constipated. Make sure you are moving your bowels daily. If not, take Miralax, milk of magnesia or magnesium citrate. - Anesthesia makes you very constipated. Take a dose of milk of magnesia the morning after surgery. Don't take aspirin while taking ibuprofen ? Use an ice bag for the first 72 hours. This helps to decrease swelling, which causes pain. It is normal to be more sore/painful and swollen towards the end of the day and first thing in the morning. ? Gallbladder surgery can make you very nauseated; use Zofran for nausea, for the first 24 hours. The nausea generally stops after 24 hours. ? Use milk of magnesia or prune juice to prevent constipation (this is a particular side effect of pain medication and anesthesia). Do not allow yourself to become constipated. ? Avoid fatty or greasy foods; introduce these slowly, with care, after about 1 month. High-fat foods include: ? Foods that are fried, like [place] fries and potato chips ? High-fat meats, such as mccann, bologna, sausage, ground beef, and ribs, pork products ? High-fat dairy products, such as cheese, ice cream, cream, whole milk, and sour cream ? Pizza ? Foods made with lard or butter ? Creamy soups or sauces ? Meat gravies ? Chocolate ? Oils, such as palm and coconut oil ? Skin of chicken or turkey Nuts and nut butters [place] ? Start out eating very small, bland amounts of food. Do not take pain pills on an empty stomach. - You will notice purple discoloration around the incisions. This is the ?skin glue?. This will wear off on its own. It is OK to shower after 24hrs. You do not need to cover the incisions. - -You should walk frequently, gradually, increasing the distance. You may climb stairs, just go slowly. ? Do not go swimming or sit in a hot tub for two weeks. ? There are no stitches to remove. ? Do not drive your car x72hrs and then only if you have no pain and can move freely. Do not drive if you are taking pain narcotic pain medications. ? You may resume sexual activity whenever pain and soreness subside, usually in 2 weeks. ? Do no lift anything over 5 lbs. for two weeks. ? You may return to work in one week, or when you feel able, provided you do not have to do any heavy lifting or prolonged standing. ? You should return to Dr. Mccabe?s office for a post-op appointment about one week after surgery. Please call the Surgical [facility] at: [phone] to schedule an appointment. My Medications for pain and nausea are: Celebrex and ultram, and zofran When to Call the Office: ? If the incision becomes red or swollen, or there is more than a little drainage from it. ? If you develop a temperature higher than 100.5 F. ? If your eyes turn yellow ? Vomiting and can?t keep fluids down Activity:: see above Remove Dressings/Wound Care:: 24 hours Shower/Bathe:: 24 hours Diet:: see above Discharge Orders Discharge Orders: Discharge Order (Routine); Ordered 08/08/21 Ordered By: Carlene Mccabe DS: Diagnosis Discharge Diagnosis (1) Cholelithiasis: Status: Chronic
[2021-08-08] MEDS: fentaNYL 100 MCG/2 ML VIAL IVP (09:20)
--- NOTE | 2021-08-08 09:43 | W.ANESPOSTOP ---
Postoperative Evaluation Date, Time and Location Date Performed: 08/08/21 Time Performed: 09:43 Patient Location: Day Surgery Unit Vital Signs Most Recent Imported Vital Signs: Most Recent Vital Signs Temp Pulse Resp BP Pulse Ox 36.4 C L 61 19 160/60 H 97 08/08/21 09:28 08/08/21 09:28 08/08/21 09:28 08/08/21 09:28 08/08/21 09:28 Pain Score Most Recent Pain Score: Most Recent Pain Score Pain Level 5 08/08/21 09:28 Assessment Mental Status: Awake (Alert & Oriented to Patient Baseline) Airway and Respiratory Function: Patent airway with normal (patient baseline) respiratory exam Cardiovascular Function: Hemodynamically Stable Hydration Status: Adequately Hydrated Nausea & Vomiting: No Nausea or Vomiting Pain: Pain is tolerable per patient Peripheral Nerve Block: Patient did not receive a nerve block
== END 2021-08-08 11:29 | disposition home or self-care (01) ==
PROVIDERS: Visit Provider Surgery
PROC: 0FT44ZZ Resection of Gallbladder, Percutaneous Endoscopic Approach (ICD-10-PCS; CPT 47562; principal; 2021-08-08 07:30)
DX: K80.10 Calculus of gallbladder with chronic cholecystitis without obstruction (principal)
CPT/HCPCS: 47562; 88304; J0690; J1100; J1885; J2001; J2405; J3010

== ENCOUNTER → 2021-08-24 15:08 | Outpatient (BNVA) | payer MEDICARE, SELFPAY | PROVIDERS: Visit Provider Surgery | DX: Z48.815 Encounter for surgical aftercare following surgery on the digestive system (principal); Z90.49 Acquired absence of other specified parts of digestive tract; R10.31 Right lower quadrant pain ==

== ENCOUNTER 2021-10-03 14:02 | Outpatient (REF) | payer MEDICARE, SELFPAY ==
[2021-10-03 20:16] LABS: Anion Gap 10.8 mmol/L (3-11); BUN 17 mg/dL (7-18); CO2 27.2 mmol/L (21.0-32.0); CREATININE 0.8 mg/dL (0.55-1.02); Calcium 9.4 mg/dL (8.5-10.1); Chloride 101 mmol/L (98-107); Glucose 97 mg/dL (74-106); Potassium 3.6 mmol/L (3.5-5.1); Sodium 139 mmol/L (136-145)
== END 2021-10-03 14:03 | disposition home or self-care (01) ==
LOC: LBN 14:02
DX: I10 Essential (primary) hypertension (principal)
CPT/HCPCS: 80048

== ENCOUNTER → 2022-03-19 07:57 | Outpatient (BNVA) | payer MEDICARE, SELFPAY | DX: M17.11 Unilateral primary osteoarthritis, right knee (principal); M17.12 Unilateral primary osteoarthritis, left knee | CPT/HCPCS: 20610; J1040 ==

== ENCOUNTER 2022-09-19 11:58 | Outpatient (CLI) | payer MEDICARE, SELFPAY ==
--- NOTE | 2022-09-19 11:45 | RT.EKG_ITS ---
APPROVED REPORT Exam: Resting ECG Reason for Exam: irregularly irregular rhythm Patient Location: O HR:75 bpm ECG Measurements Heart Rate 75 AXIS NJ 187 P 46 QRSd 163 QRS -20 QT 457 T 103 QTc 511 Conclusion Sinus rhythm...normal P axis, V-rate 50- 99 Multiple ventricular premature complexes...V complexes w/ short R-R intervls Left atrial enlargement...P, P'>60mS, <-0.15mV V1 Left bundle branch block...QRSd>120, broad/notched R
== END 2022-09-19 11:59 | disposition home or self-care (01) ==
LOC: DI.CM 12:00
PROVIDERS: PCP Nurse Practitioner Family; Visit Provider Nurse Practitioner Family
DX: I49.9 Cardiac arrhythmia, unspecified (principal); R94.31 Abnormal electrocardiogram [ECG] [EKG]; I44.7 Left bundle-branch block, unspecified; I49.3 Ventricular premature depolarization
CPT/HCPCS: 93010

== ENCOUNTER 2022-10-01 03:03 | Outpatient (CLI) | payer MEDICARE, SELFPAY ==
[2022-10-01 13:46] LABS: ALT 24 U/L (14-59); AST 25 U/L (15-37); Albumin 3.9 g/dL (3.4-5.0); Alkaline Phosphatase 88 U/L (46-116); Anion Gap 9.6 mmol/L (3-11); BUN 10 mg/dL (7-18); Bilirubin, Total 0.7 mg/dL (0.2-1.0); CO2 28.4 mmol/L (21.0-32.0); CREATININE 0.8 mg/dL (0.55-1.02); Calcium 9.1 mg/dL (8.5-10.1); Calculated LDL 83 mg/dL (<100); Chloride 95 mmol/L (98-107); Cholesterol 178 mg/dL (<200); Estimated GFR 79.22 (mL/min/1.73m2); Glucose 124 mg/dL (74-106); HDL Cholesterol 89 mg/dL (40-60); Potassium 3.4 mmol/L (3.5-5.1); Sodium 133 mmol/L (136-145); TSH (W/Ref FT4) 2.73 uIU/mL (0.36-3.74); Total Protein 7.8 g/dL (6.4-8.2); Triglyceride 30 mg/dL (<150)
[2022-10-01 14:04] LABS: Hemoglobin A1C 5.7 % (<5.7)
== END 2022-10-01 03:04 | disposition home or self-care (01) ==
LOC: LOS 03:04
PROVIDERS: PCP Nurse Practitioner Family; Visit Provider Nurse Practitioner Family
DX: I10 Essential (primary) hypertension (principal); E78.5 Hyperlipidemia, unspecified; R73.01 Impaired fasting glucose
CPT/HCPCS: 36415; 80053; 80061; 83036; 84443

== ENCOUNTER → 2022-10-17 02:15 | Outpatient (CLI) | payer MEDICARE, SELFPAY ==
--- NOTE | 2022-10-17 06:30 | DI.MAMMO_ITS ---
Exam(s) MAMMO SCREENING EXAM: MAMMO SCREENING CLINICAL HISTORY: screening,Z12.39 TECHNIQUE: Mammograms were interpreted according to the usual protocol including computer analysis w blinkbox CAD system, tomosynthesis and C-view imaging. COMPARISON: FINDINGS: The breasts are of moderate density with fairly symmetrical distribution of fibroglandular tissue. N o dominant mass or clumped microcalcification is identified in either breast. The current examinatio n is compared with previous examinations including July 2021 and there has been no gross interva l change in appearance in comparison with the prior studies. IMPRESSION: No specific evidence of malignancy at this time. Routine screening examinations are suggested at yea rly intervals due to the family history of breast carcinoma. BI-RADS Category 1 - Negative Breast Density - Category B - Scattered areas of fibroglandular density
--- NOTE | 2022-10-17 06:30 | DI.CTLCSR_ITS ---
Exam(s) CT CHEST LUNG CANCER SCREEN EXAM: CT CHEST LUNG CANCER SCREEN CLINICAL HISTORY: Screening for lung cancer,FORMER SMOKER, Z87.891 TECHNIQUE: CT examination of the chest was performed utilizing low-dose lung cancer screening protoc ol. COMPARISON: No exams were available for comparison FINDINGS: Images obtained through the upper abdomen show unremarkable appearance of visualized portions of the liver and spleen. There is no mediastinal or hilar adenopathy. Mediastinal vascular structures appear intact by noncon trast criteria. Tracheobronchial tree appears intact. No pleural effusion or pleural-based mass. The lungs show mosaic attenuation and mild septal prominence period there are multiple small noncalci fied left pulmonary nodules, the largest a 5 millimeter mean diameter nodule in the left lower lobe l aterally.. No prior studies available for comparison. IMPRESSION: Lung RADS Cat 2 - Benign Appearance / Behavior: Nodules with a very low likelihood of becoming a cli nically active cancer due to size or lack of growth Continue annual screening with LDCT in 12 months. Lung-RADS 1.0 CATEGORIES: Category 0 - Prior chest CT exam(s) being located for comparison. Category 1 - Annual screening in 12 months. No nodules or definitely benign nodules. Category 2 - Annual screening in 12 months. Benign appearance. Nodules with low likelihood of becomin g active cancer. Category 3 - 6-month follow-up. Probably benign. Short-term follow-up suggested. Nodules with low lik elihood of becoming active cancer. Category 4A - 3-month follow-up and CT/PET if >8 mm in size. Suspicious finding. Findings which requi re additional testing. Category 4B - Findings which require additional testing and tissue sampling. Suspicious finding. Category 4X - Category 3 or 4 nodules with additional features or imaging findings that increases the suspicion of malignancy. Modifier S- Potentially clinically significant finding. (Non lung cancer) RADIATION DOSE DELIVERED: 72.64mGy.cmTotal DLP !Error 1.84mGyCTDIvol 72.64mGy.cm Total DLP DATA REPOSITORY: All CT scans at this facility are submitted to the National Radiology Data Registry (NRDR) Dose Index Registry (DIR) with the [employer] (ACR). RADIATION OPTIMIZATION: All CT scans at this facility use at least one of these dose optimization te chniques: automated exposure control; mA and/or kV adjustment per patient size (includes targeted exa ms where dose is matched to clinical indication); or iterative reconstruction.
--- NOTE | 2022-10-17 07:28 | DI.US_ITS ---
APPROVED REPORT EXAM: Comprehensive 2D, Doppler, and color-flow Echocardiogram Patient Location: Out-Patient Utility Sales And Service Manager: Mirna Jerry RDCS (AE) Indications: Heart failure, reassess, acute chf Other Information Study Quality: Adequate Conclusion Left ventricle is mildly dilated. Ejection fraction is 40% with global hypokinesis Normal right ventricular size and systolic function The left atrium is mildly dilated. The right atrium is normal in size Aortic valve is sclerotic and trileaflet without stenosis or regurgitation Moderate mitral annular calcification. Mild to moderate mitral regurgitation Normal tricuspid valve with trace regurgitation. Right ventricular systolic pressure could not be es timated Mildly dilated ascending aorta measuring 3.37 cm Wall motion Left Ventricle Left ventricle is mildly dilated. Left ventricular systolic function is moderately decreased. There i s normal left ventricular wall thickness. Regional wall motion abnormalities are noted. There is no v entricular septal defect visualized. LVEF is 40%. Right Ventricle The right ventricle is normal size. The right ventricular systolic function is normal. Atria Left atrium is mildly dilated. The right atrium size is normal. The interatrial septum is intact wit h no evidence for an atrial septal defect. Aortic Valve The Aortic valve is sclerotic. Aortic valve is trileaflet. No hemodynamically significant valvular ao rtic stenosis. No aortic regurgitation is present. Mitral Valve Moderate mitral annular calcification. No evidence of mitral valve stenosis. Mild to moderate mitral regurgitation. Tricuspid Valve The tricuspid valve is normal in structure. There is no tricuspid valve stenosis. Trace tricuspid reg urgitation. Unable to assess PA pressure. Pulmonic Valve The pulmonary valve is normal in structure. There is no pulmonic valvular stenosis. There is no pulmo rajni valvular regurgitation. Great Vessels The aortic root is normal in size. The ascending aorta is mildly dilated. Aortic arch is normal in ca liber. IVC is normal in size and collapses >50% with inspiration. Pericardium There is no pericardial effusion. 2D Dimensions IVSD d PLAX 0.90 cm F: 0.6-1.0 LV Vol A2C d MOD 219.2 mL LVPW d PLAX 0.91 cm F: 0.6 - 1.0 LV Vol A4C d MOD 217.3 mL LVID d PLAX 5.50 cm F: 3.8 - 5.2 LA vol/ BSA A2C s A-L 45.3 mL/m2 LVDs 4.35 cm F: 2.2 - 3.5 LA vol/ BSA A4C s A-L 36.1 mL/m2 Ao Root d 2.61 cm F: 2.7 - 3.3 LA Vol/ BSA Biplane s A-L 43.6 mL/m2 RA Area A4C 12.75 cm2 LA Area A4C s MOD 22.37 cm2 RA Vol/ BSA A4C s A-L 15.2 mL/m2 LA Area A2C s MOD 23.24 cm2 Ao Asc Diam d 3.37 cm F: 2.3 - 3.1 LV EF A4C MOD 39.5 % LV EF Teichholz 40.6 % LV EF A2C MOD 40.9 % LVEF (Del Valle's) 38.95 % F: 54 - 74 LV EF Biplane MOD 39.0 % LV Volume 165.42 mL F: 46 - 106 SV 85.24 mL LV Volume Index 84.39 mL/m2 F: 29 - 61 SV Index 43.62 mL/m2 LV Vol Biplane MOD 218.8 mL FS 20.00 % M-Mode TAPSE 2.27 cm (M/F) >1.7 LV Diastology MV E' medial 0.067 (>0.07 m/s) E/A Ratio 0.8 LV E/e MED 16.95 (<14) MV E Vmax 1.13 (0.4-1.3 m/s) MV E' lateral 0.121 (>0.1 m/s) MV A Vmax 1.40 (0.4-1.3 m/s) LV E/e LAT 9.40 (<14) MV E/A Ratio 0.80 MV E/E' medial 16.98 MV E/E' lateral 9.41 Aortic Valve LVOT Area 3.62 cm2 AoV Area Vmax 2.42 cm2 LVOT Vmax 1.49 m/s AoV Area/ BSA (Vmax) 1.24 cm2/m2 LVOT Mean Roman. 0.98 m/s KRISTIAN Mean Roman. 2.31 cm2 LVOT Peak Grad 8.9 mmHg KRISTIAN Mean Roman. Index 1.18 cm2/m2 LVOT Mean Grad 4.5 mmHg LVOT VTI 0.304 m LVOT Diam s 2.10 cm AoV Vmax 2.23 m/s Velocity Ratio 0.67 AoV Mean Roman. 1.53 m/s AoV Peak Grad 19.9 mmHg LVOT SV 109.84 mL AoV Mean Grad 10.2 mmHg AoV VTI 0.431 m AoV Area VTI 2.55 cm2 AoV Area/ BSA (VTI) 1.31 cm/m2 Mitral Valve MV DT 166 (160-240 msec) MR PISA Radius 0.66 cm MV PHT 48 msec MR Aliasing Velocity 0.35 m/s MV Area PHT 4.58 cm2 MR PISA 2.75 cm2 MV VTI 0.382 m MV Area VTI 2.87 (4.0-6.0 cm2) Pulmonary Valve PV Vmax 1.23 (0.5-1.5 m/s) RVOT Peak Gr. 2.32 mmHg PV Peak Grad 6.0 mmHg RVOT Mean Gr. 1.10 mmHg PV Mean Grad 3.2 mmHg RVOT VTI 0.136 m PV VTI 0.213 m RVOT Vmax 0.76 m/s
== END ==
PROVIDERS: PCP Nurse Practitioner Family; Visit Provider Nurse Practitioner Family
DX: Z87.891 Personal history of nicotine dependence (principal); Z12.31 Encounter for screening mammogram for malignant neoplasm of breast; I50.9 Heart failure, unspecified
CPT/HCPCS: 71271; 77063; 77067; 93306

== ENCOUNTER → 2022-10-29 00:58 | Outpatient (CLI) | payer MEDICARE, SELFPAY ==
--- NOTE | 2022-10-29 13:39 | DI.RAD_ITS ---
Exam(s) XR HIP LT COMPLETE AP PELVIS EXAM: XR HIP LT COMPLETE AP PELVIS INDICATION: left hip pain,M25.552. COMPARISON: CR RT HIP COMPLETE AP PELVIS from 05/31/2014 TECHNIQUE: 2D digital imaging was performed. Two views. FINDINGS: Hip joint spaces are maintained. There is minimal acetabular spurring. Mild enthesophytes are seen at the greater trochanters. The SI joints are unremarkable. There are severe degenerative changes i n the lower lumbar spine. IMPRESSION: Minimal degenerative changes of the hips. DATA REPOSITORY: RADIATION DOSE DELIVERED:
== END ==
PROVIDERS: PCP Nurse Practitioner Family; Visit Provider Nurse Practitioner Family
DX: M25.552 Pain in left hip (principal); G89.29 Other chronic pain; M16.12 Unilateral primary osteoarthritis, left hip
CPT/HCPCS: 73502

== ENCOUNTER 2022-12-06 00:59 | Outpatient (CLI) | payer MEDICARE, SELFPAY ==
--- NOTE | 2022-12-06 07:30 | DI.DEXA_ITS ---
Exam(s) XR DEXA BONE DENSITY W/WO YAW EXAM: XR DEXA BONE DENSITY W/WO YAW CLINICAL HISTORY: screening for osteoporosis in postmenopausal woman,z78.0 TECHNIQUE: Routine DEXA evaluation of the lumbar spine, hip, or forearm. COMPARISON: No exams were available for comparison FINDINGS: Performed on a Hologic unit. Lateral image: No compression fracture evident. Lumbar Spine total T-score: 2.9 Hip total T-score:-0.3 Independent reading at the level of the femoral neck yields T-score of -1.6 Forearm total T-score: 0.4 IMPRESSION: Bone mineral density measures in the osteopenia range. Fracture risk is moderate. Note: Any spine fracture indicates 5x risk for subsequent spine fracture and 2x risk for subsequent h ip fracture. World Health Organization criteria for BMD interpretation classify patients: Normal...... T- Score at or above -1.0 Osteopenic... T- Score between -1.0 and -2.5 Osteoporosis... T-Score at or below -2.5
== END 2022-12-06 01:19 ==
LOC: DI 00:59
PROVIDERS: PCP Nurse Practitioner Family; Visit Provider Nurse Practitioner Family
DX: Z78.0 Asymptomatic menopausal state (principal); Z13.820 Encounter for screening for osteoporosis; M85.89 Other specified disorders of bone density and structure, multiple sites
CPT/HCPCS: 77080

== ENCOUNTER 2022-12-06 02:37 | Outpatient (CLI) | payer MEDICARE, SELFPAY ==
[2022-12-06 13:53] LABS: Anion Gap 8.8 mmol/L (3-11); BUN 15 mg/dL (7-18); CO2 29.2 mmol/L (21.0-32.0); Calcium 9.4 mg/dL (8.5-10.1); Chloride 101 mmol/L (98-107); Estimated GFR 60.61 (mL/min/1.73m2); Glucose 113 mg/dL (74-106); Potassium 3.5 mmol/L (3.5-5.1); Sodium 139 mmol/L (136-145)
== END 2022-12-06 02:38 | disposition home or self-care (01) ==
LOC: LBO 02:37
PROVIDERS: PCP Nurse Practitioner Family; Visit Provider Nurse Practitioner Family
DX: I10 Essential (primary) hypertension (principal)
CPT/HCPCS: 36415; 77080; 80048

== ENCOUNTER 2023-03-12 17:39 | Emergency (ER) | payer MEDICARE, SELFPAY ==
[2023-03-12] VITALS (27 sets, daily range): BP systolic 90–171; BP diastolic 66–108; PULSE 71–101; RESP 15–31; TEMP 36.7; O2SAT 89–97
--- NOTE | 2023-03-12 17:30 | RT.EKG_ITS ---
APPROVED REPORT Exam: Resting ECG Reason for Exam: sob Patient Location: E HR:83 bpm ECG Measurements Heart Rate 83 AXIS SC 183 P 69 QRSd 165 QRS -24 QT 453 T 118 QTc 535 Conclusion Sinus rhythm...normal P axis, V-rate 60- 99 Multiple ventricular premature complexes...V complexes w/ short R-R intervls Probable left atrial enlargement...P >50mS, <-0.10mV V1 Left bundle branch block...QRSd>120, broad/notched R. Sinus. LBBB, seen in previous. PVCs. No STEMI.
--- NOTE | 2023-03-12 17:56 | ED.GENADUL_ITS ---
Discharge Plan Disposition Patient Disposition: Home Discharge Details Clinical Impression: Bronchitis, Compression fracture of T8 vertebra Primary Care Provider: Francoise Villegas ED Provider: Mary Beth Mccray Home Meds and New Rx's Prescriptions: New lidocaine 5 % adhesive patch,medicated 1 patch topical DAILY PRN (Reason: back pain) Qty: 15 0RF Rx Instructions: leave on most painful area for up to 12 hrs Continued atorvastatin 40 mg tablet 40 mg PO QPM Qty: 90 3RF PreserVision AREDS-2 250-90-40-1 mg tablet,chewable 1 tab PO QAM AND QPM metoprolol succinate 25 mg tablet extended release 24 hr 12.5 mg PO DAILY Qty: 90 3RF Rx Instructions: Start after 2 weeks on the valsartan losartan 25 mg tablet 25 mg PO DAILY Qty: 90 3RF hydrochlorothiazide 25 mg tablet 25 mg PO DAILY Qty: 90 3RF pantoprazole 40 mg tablet,delayed release (DR/EC) 40 mg PO DAILY Qty: 90 3RF Discharge Instructions Instructions: Vertebral Compression Fracture (ED), Chronic Bronchitis (ED) Additional Instructions: CT shows bronchitis, this may be recurrent. No evidence of pneumonia. Use the albuterol 1 or 2 puffs every 4-6 hours as needed for shortness of breath. Apply the lidocaine patch to the area of your back that is painful. You do have a compression fracture to T8. You may follow-up with orthopedics or your primary care provider to discuss this. Usually there is no treatment for this especially if it is not causing too large problems. Please take Tylenol with food every 4-6 hours as needed for pain and swelling. Cardiac work-up shows no evidence for heart attack. No blood clots in your lungs. Follow up with primary care provider in 3-5 days. Return to ED sooner if any worsening or concerns. Referrals: Francoise Villegas NP [Primary Care Provider] - 5 days Medical Decision Making 72-year-old female with a past medical history of CHF, who is a former smoker, fibromyalgia, osteopenia, prediabetes, left bundle branch block hypertension hyperlipidemia ALEXANDRE presents to the ER with a chief complaint of back pain, shortness of breath and bilateral chest pain which began 2 days ago. She reports that she fell a month ago and is unsure if she may have injured her rib. She reports that it is constant today. She does state to me that she is takes aspirin daily and did take an 81 mg aspirin this morning. She did have an echocardiogram in October of last year. She also endorses 2 beers at dinner tonight. EKG was reviewed by Dr. Ovalle ER attending, please see your official report. There was no old EKG available for review. Patient is in a left bundle branch block with occasional PVCs. She does have a history of left bundle branch block. Cardiac work-up ordered including serial troponins, magnesium and proBNP due to history of CHF. Will consider chest x-ray versus chest CT pending labs. Serial troponins x2 negative, patient denies any chest pain, CT chest rule out PE ordered. proBNP slightly elevated 832 which is her baseline, states she shows pneumonitis versus bronchitis no PE, also has a T [address] results and results with patient who verbalized understanding. She is remained hemodynamically stable throughout stay, discussed compression fracture which would explain her back pain. Suggestive bronchitis versus bronchiolitis which is probably chronic in nature. Patient was given an albuterol inhaler to go home with and instructed on use. Lidocaine patch was placed which she reports does help the pain. Days she normally takes Tylenol or ibuprofen. Instructed to follow-up with orthopedics or PCP for further e valuation. Discussed strict return instructions. This text was generated using [employer] dictation system, please disregard any oddities of phrase or misspellings. Lab Data Lab results reviewed: Yes I reviewed the patient's lab results. Labs: Laboratory Tests Range/Units 03/12/23 03/12/23 03/12/23 18:40 18:40 19:03 WBC Cancelled RBC Cancelled Hgb Cancelled Hct Cancelled MCV Cancelled MCH Cancelled MCHC Cancelled RDW Cancelled Plt Count Cancelled MPV Cancelled Immature Gran % Cancelled Neutrophils % Cancelled Band Neutrophils % Cancelled Lymphocytes % Cancelled Atypical Lymphs % Cancelled Monocytes % Cancelled Eosinophils % Cancelled Basophils % Cancelled Metamyelocytes % Cancelled Myelocytes % Cancelled Promyelocytes % Cancelled Other Cells % Cancelled Nucleated RBC % Cancelled Absolute Neutrophils Cancelled Absolute Lymphocytes Cancelled Absolute Monocytes Cancelled Absolute Eosinophils Cancelled Absolute Basophils Cancelled RBC Morphology Cancelled Polychromasia Cancelled Hypochromasia Cancelled Poikilocytosis Cancelled Basophilic Stippling Cancelled Anisocytosis Cancelled Microcytosis Cancelled Macrocytosis Cancelled Spherocytes Cancelled Tear Drop Cells Cancelled Ovalocytes Cancelled Stomatocytes Cancelled Calderón-Rhame Bodies Cancelled [place] Cells/Echinocytes Cancelled Acanthocytes (Spur) Cancelled Schistocytes Cancelled Sodium Cancelled 137 Potassium Cancelled 3.4 L Chloride Cancelled 99 Carbon Dioxide Cancelled 29.1 Anion Gap Cancelled 8.9 BUN Cancelled 12 Creatinine Cancelled 0.8 Est GFR (CKD-EPI 2020) Cancelled 79.22 Glucose Cancelled 102 Calcium Cancelled 9.4 Magnesium Cancelled 1.8 Total Bilirubin Cancelled 0.4 AST Cancelled 18 ALT Cancelled 25 Alkaline Phosphatase Cancelled 76 Troponin I Cancelled < 50 NT-Pro-B Natriuret Pep Cancelled 832 H Total Protein Cancelled 7.9 Albumin Cancelled 3.9 Range/Units 03/12/23 03/12/23 19:03 20:57 WBC 7.90 RBC 4.22 Hgb 13.5 Hct 38.7 MCV 92 MCH 32.0 MCHC 34.9 RDW 14.1 Plt Count 230 MPV 10.4 Immature Gran % 0.3 Neutrophils % 64.8 Band Neutrophils % Lymphocytes % 24.1 Atypical Lymphs % Monocytes % 8.4 Eosinophils % 1.8 Basophils % 0.6 Metamyelocytes % Myelocytes % Promyelocytes % Other Cells % Nucleated RBC % 0.0 Absolute Neutrophils 5.13 Absolute Lymphocytes 1.90 Absolute Monocytes 0.66 Absolute Eosinophils 0.14 Absolute Basophils 0.05 RBC Morphology Polychromasia Hypochromasia Poikilocytosis Basophilic Stippling Anisocytosis Microcytosis Macrocytosis Spherocytes Tear Drop Cells Ovalocytes Stomatocytes Calderón-Rhame Bodies [place] Cells/Echinocytes Acanthocytes (Spur) Schistocytes Sodium Potassium Chloride Carbon Dioxide Anion Gap BUN Creatinine Est GFR (CKD-EPI 2020) Glucose Calcium Magnesium Total Bilirubin AST ALT Alkaline Phosphatase Troponin I < 50 NT-Pro-B Natriuret Pep Total Protein Albumin HPI General Mode of arrival: ambulatory . Date/Time Provider Initiated Documentation: 03/12/23 17:48 . Limitations to Documentation: no limitations . Information obtained by: patient, RN notes reviewed and old records reviewed . HPI Narrative: 72-year-old female with a past medical history of CHF, who is a former smoker, fibromyalgia, osteopenia, prediabetes, left bundle branch block hypertension hyperlipidemia BALDOMERO presents to the ER with a chief complaint of back pain, shortness of breath and bilateral chest pain which began 2 days ago. She reports that she fell a month ago and is unsure if she may have injured her rib. She reports that it is constant today. She does state to me that she is takes aspirin daily and did take an 81 mg aspirin this morning. She did have an echocardiogram in October of last year. She also endorses 2 beers at dinner tonight. Related Data Home Medications Medication Instructions Recorded Confirmed vit C 250 mg-E 90 mg-zinc 40 1 tab PO QAM AND QPM 10/03/21 03/12/23 mg-copper 1 [id number] chew tablet (PreserVision AREDS-2) atorvastatin 40 mg tablet 40 mg PO QPM #90 tabs 08/22/22 03/12/23 metoprolol succinate 25 mg 12.5 mg PO DAILY #90 tabs 10/26/22 03/12/23 tablet,extended release 24 hr losartan 25 mg tablet 25 mg PO DAILY #90 tabs 11/26/22 03/12/23 hydrochlorothiazide 25 mg tablet 25 mg PO DAILY #90 tabs 12/03/22 03/12/23 pantoprazole 40 mg tablet,delayed 40 mg PO DAILY #90 tabs 02/28/23 03/12/23 release lidocaine 5 % topical patch 1 patch topical DAILY PRN back 03/12/23 pain #15 ea Previous Rx's Medication Instructions Recorded atorvastatin 40 mg tablet 40 mg PO QPM #90 tabs 08/22/22 metoprolol succinate 25 mg 12.5 mg PO DAILY #90 tabs 10/26/22 tablet,extended release 24 hr losartan 25 mg tablet 25 mg PO DAILY #90 tabs 11/26/22 hydrochlorothiazide 25 mg tablet 25 mg PO DAILY #90 tabs 12/03/22 pantoprazole 40 mg tablet,delayed 40 mg PO DAILY #90 tabs 02/28/23 release lidocaine 5 % topical patch 1 patch topical DAILY PRN back 03/12/23 pain #15 ea Allergies Allergy/AdvReac Type Severity Reaction Status Date / Time No Known Allergies Allergy Verified 03/12/23 17:45 General Stated Complaint: RespSymp SERENA: 3 Review of Systems All systems reviewed & are unremarkable except as noted in HPI and below Cardiovascular Cardiovascular: Reports chest pain, Reports chest pain at rest, Denies pedal edema and Reports dyspnea Respiratory Respiratory: Reports dyspnea and Reports other (Sneezing) Musculoskeletal Musculoskeletal: Reports back pain PFSH All Active Problems (Updated 03/12/23 @ 21:36 by Mary Beth Mccray NP) Bronchitis (Acute) Compression fracture of T8 vertebra (Acute) Heart failure with reduced ejection fraction (Chronic) Chronic left hip pain (Chronic) ALEXANDRE (nonalcoholic steatohepatitis) (Chronic) Hyperlipidemia (Chronic) Essential hypertension (Chronic) Left bundle branch block (Chronic) Primary osteoarthritis of left knee (Chronic) Start injection: 05/28/2019; 07/11/2020; 04/17/2021, 03/19/2022 Primary osteoarthritis of right knee (Chronic) Steroid injection: 07/11/2020; 04/17/2021, 03/19/2022 Prediabetes (Chronic) Chronic low back pain (Chronic) Lumbar spinal stenosis (Chronic) Osteopenia (Chronic) Dexa 2022 Gastroesophageal reflux disease (Chronic) Macular degeneration disease (Chronic) Primary fibromyalgia syndrome (Chronic) Diverticulosis of colon (Chronic) Medical History Acute systolic CHF (congestive heart failure) (~06/2021) Former smoker Surgical History History of cholecystectomy (08/08/21) Hx of esophagogastroduodenoscopy Hx of tonsillectomy S/P colonoscopy S/P knee surgery S/P shoulder surgery (08/25/14) Right Neer acromioplasty with excision of distal clavicle and repair of supraspinatus tendon. Family History Mother , age 89 Essential hypertension Asthma Father , 84 Diabetes Essential hypertension Heart disease Sister No problems noted. Brother No problems noted. Maternal Grandfather Heart disease Paternal Grandfather Diabetes Maternal Grandmother Stomach cancer Paternal Grandmother Breast cancer Sister Depression Sister Depression Brother No problems noted. Brother Asthma Son No problems noted. Daughter No problems noted. Social History Smoking/Tobacco Use Status: Former Tobacco Use tobacco type: cigarettes Quit Date: 04/17/09 Second Hand Exposure: Yes Smoking risk assessment performed?: Yes Alcohol Intake: current Alcohol Intake frequency: a few times a week Alcohol type: beer Drug use: Never Substance use type: does not use Caregiver/Support person: No Household members: family Housing: house Communication Needs: None Do you need help understanding health information?: Never Pets and animals: No Sexually active: No Do you think of yourself as: straight/heterosexual What is your relationship status?: How often do you talk on the phone with friends or family?: three or more times per week How often do you get together with friends or relatives?: three or more times per week How often do you attend taoist or taoist services?: decline to answer Do you belong to any clubs or organized social groups?: no Panel score (0-1 are the most socially isolated patients): 1 What type of physical activity do you participate in: walking Duration: 15-30 minutes/day Frequency: 3-4 times per week Tisha/Orthodox: Orthodoxy Special tisha needs: No Seatbelt use: always Helmet use: No Drive intox or ride w/intox 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 Appears stated age. Obese body habitus. Head: Normocephalic, no trauma. Eyes: Pupils PERRL, Red reflex noted, EOM's intact. Eyelids symmetrical without lesions, discharge, or swelling. ENT: Bilateral TM's WNL, External ear normal to inspection, no mastoid TTP, swelling, or erythema, Nasal turbinates WNL, no nasal discharge. Normal dentition, Posterior pharynx WNL, no exudate. Chest: RRR, Normal S1, S2, distal pulses intact. Patient has occasional PVCs and left bundle branch block. Resp: Lungs diminished to auscultation bilaterally, no wheezes, rales, or rhonchi. Abdomen: Soft, non-distended, Normoactive bowel sounds all 4 quads. Musculoskeletal: Normal gait, 5/5 strength to all four extremities. Skin: No suspicious rashes or lesions. Capillary refill less than 2 sec. no significant pedal edema noted. Neurologic: Cranial nerves II-XII intact. Alert and oriented x 3. Motor: No deficits noted. Sensory: Intact bilaterally all 4 extremities. Reflexes: DTR's intact bilaterally.. Hematologic/Lymphatic: No ecchymosis, no lymphadenopathy. Course Vital Signs Vital signs: Vital Signs Temperature 36.7 C 03/12/23 17:43 Pulse 80 03/12/23 17:43 Respiratory Rate 18 03/12/23 17:43 Blood Pressure 162/108 H 03/12/23 17:43 Pulse Oximetry 97 03/12/23 17:43 Temperature 36.7 C 03/12/23 17:43 Pulse 80 03/12/23 17:43 Respiratory Rate 18 03/12/23 17:43 Respiratory Effort Normal, Non-Labored 03/12/23 17:44 Blood Pressure 162/108 H 03/12/23 17:43 Pulse Oximetry 97 03/12/23 17:43 Oxygen Delivery Method Room Air 03/12/23 17:43 Oxygen Flow Rate 0 03/12/23 17:43 PAWSS Have you Been Recently Intoxicated or Drunk Within the Last 30 days?: No Have you Ever Experienced Previous Episodes of Alcohol Withdrawal?: No Have you ever Experienced Withdrawal Seizures?: No Have you ever Experienced Delirium Tremens(DT)s?: No Have you ever undergone Alcohol Rehabilitation Treatment (i.e, inpt ot outpatient treatment programs)?: No Have you ever Experienced Blackouts?: No Have you ever Combined Alcohol with other Downers within the last 90 days?: No Have you ever Combined Alcohol with any other Substance of Abuse during the last 90 days?: No Positive Blood Alcohol level on Presentation? [PCS.BAL]: No Evidence of Increased Autonomic Activity (i.e. HR>120, tremor, sweating, agitation, nausea)?: No Result: 0
[2023-03-12] MEDS: Aspirin 81 MG CHEW 243 MG CH (18:54)
[2023-03-12 19:08] LABS: Abs Immature Grans 0.02 10^3/uL (0.0-0.06); Absolute Basophil Count 0.05 10^3/uL (0.0-0.2); Absolute Eosinophil Count 0.14 10^3/uL (0.0-0.7); Absolute Monocyte Count 0.66 10^3/uL (0.1-0.8); Absolute Neutrophil Count 5.13 10^3/uL (1.2-6.7); Basophils % 0.6; Eosinophils % 1.8; HCT 38.7 % (36.0-46.0); HGB 13.5 g/dL (11.2-15.7); Immature Grans % 0.3; Lymphocytes % 24.1; MCHC 34.9 % (32.0-36.0); MCV 92 fL (80-95); MPV 10.4 fL (8.0-11.0); Monocytes % 8.4; Neutrophils % 64.8; Platelet Count 230 10^3/uL (130-400); RBC 4.22 10^6/uL (3.93-5.22); RDW 14.1 % (11.7-14.6); RDW-SD 47.7 fL
--- NOTE | 2023-03-12 19:30 | DI.CT_ITS ---
Exam(s) CT CHEST PE CTA EXAM: CT CHEST PE CTA CLINICAL HISTORY: SOB, Chest Pain. TECHNIQUE: Imaging Protocol: Axial CT angiography was performed with multi-slice acquisition and mu lti-planar and/or 3D reconstructions. CONTRAST MATERIAL: Intravenous: Omnipaque 350 contrast volume:100 mL COMPARISON: CT CT CHEST LUNG CANCER SCREEN from 10/17/2022 FINDINGS: Tracheobronchial tree: Patent where visualized. Pulmonary parenchyma: Stable mild bilateral noncalcified pulmonary nodules. Continued follow-up is r ecommended at is advised on the patient's recent lung cancer screening low-dose CT scan of the chest. Mild bronchial wall thickening. Bilateral patchy mosaic alveolar attenuation. No fauzia consolidat ions are seen. Pulmonary Arteries: No evidence of filling defect to suggest pulmonary emboli. Mediastinum and Macy: Non-specific mildly enlarged lymph nodes in the mediastinum which are likely re active. The esophagus is unremarkable. There is a small hiatal hernia. Visualized thyroid gland: Unremarkable. Pleura: No effusion or pneumothorax. Heart: There is mild cardiomegaly. Mild coronary artery calcification is present. No pericardial ef fusion. Aorta: Thoracic aorta non-dilated. No evidence of dissection. Atherosclerosis is present. Upper abdomen: Status post cholecystectomy. There is a duodenal diverticulum adjacent to the pancre atic head. Soft tissues: Unremarkable. Bones: Within normal limits for the patient's age.There is a new mild inferior endplate compression d eformity of T8. This was not present on the CT scan of the chest from 10/17/2022. IMPRESSION: 1. No evidence of pulmonary embolism, thoracic aortic dissection or aneurysm. 2. New small inferior endplate compression deformity of T8. 3. Mild bronchial wall thickening. Patchy bilateral music alveolar attenuation. Considerations incl ude subsegmental atelectasis, bronchiolitis, mild edema or pneumonitis. 4. Nonemergent findings as described above. RADIATION DOSE DELIVERED: 527.73mGy.cm Total DLP DATA REPOSITORY: All CT scans at this facility are submitted to the National Radiology Data Registry (NRDR) Dose Index Registry (DIR) with the [employer] (ACR). RADIATION OPTIMIZATION: All CT scans at this facility use at least one of these dose optimization te chniques: automated exposure control; mA and/or kV adjustment per patient size (includes targeted exa ms where dose is matched to clinical indication); or iterative reconstruction.
[2023-03-12 19:37] LABS: ALT 25 U/L (14-59); AST 18 U/L (15-37); Albumin 3.9 g/dL (3.4-5.0); Alkaline Phosphatase 76 U/L (46-116); Anion Gap 8.9 mmol/L (3-11); BUN 12 mg/dL (7-18); Bilirubin, Total 0.4 mg/dL (0.2-1.0); CO2 29.1 mmol/L (21.0-32.0); CREATININE 0.8 mg/dL (0.55-1.02); Calcium 9.4 mg/dL (8.5-10.1); Chloride 99 mmol/L (98-107); Estimated GFR 79.22 (mL/min/1.73m2); Glucose 102 mg/dL (74-106); Magnesium 1.8 mg/dL (1.8-2.4); NT-proBNP 832 pg/mL (<300); Potassium 3.4 mmol/L (3.5-5.1); Sodium 137 mmol/L (136-145); Total Protein 7.9 g/dL (6.4-8.2); Troponin I < 50 ng/L (<or=60)
[2023-03-12] MEDS: Normal Saline Flush 10 ML SYR IVP (19:59)
[2023-03-12] MEDS: Omnipaque 350 MG/ML 100 ML BTL IJ (20:03)
[2023-03-12] MEDS: Normal Saline - Diluent 50 ML VIAL IJ (20:05)
--- NOTE | 2023-03-12 21:27 | DI.VRAD_ITS ---
PROCEDURE INFORMATION: Exam: CTA Chest With Contrast Exam date and time: 03/12/2023 8:18 PM Age: 72 years old Clinical indication: Shortness of breath; Patient HX: Chest pain, SOB, fall recently TECHNIQUE: Imaging protocol: Computed tomographic angiography of the chest with contrast. 3D rendering (Not supervised by radiologist): MIP and/or 3D reconstructed images were created by the technologist. Radiation optimization: All CT scans at this facility use at least one of these dose optimization techniques: automated exposure control; mA and/or kV adjustment per patient size (includes targeted exams where dose is matched to clinical indication); or iterative reconstruction. Contrast material: OMNIPAQUE 350; Contrast volume: 100 ml; Contrast route: INTRAVENOUS (IV); COMPARISON: CT CHEST LUNG CANCER SCREEN 10/17/2022 9:11 AM FINDINGS: Pulmonary arteries: The pulmonary arteries enhance appropriately with no evidence of pulmonary embolism. Aorta: Mild aortic ectasia/tortuosity and calcific atherosclerosis. No aortic aneurysm or dissection. No mediastinal hematoma. Thyroid: The visualized thyroid gland demonstrates no gross abnormality. Lungs: Mild bilateral bronchial wall thickening consistent with bronchitis or bronchial edema. No bronchiectasis. No bronchial occlusions. Patchy bilateral mosaic alveolar attenuation which may represent subsegmental atelectasis related to bronchitis/bronchiolitis or hypoventilatory changes versus patchy mild edema or pneumonitis. Multiple bilateral noncalcified pulmonary nodules are again noted and unchanged from 10/17/2022, the largest measuring 6.7 mm in the lateral left lung base. Continued annual CT screening was recommended on the prior CT. Pleural spaces: No pleural effusion. No pneumothorax. Heart: Mild cardiomegaly. Mild coronary artery calcification. Localized myocardial thinning and fatty transformation in the distal interventricular septum and left ventricular apex suggesting small chronic infarct in the LAD territory. No pericardial effusion. Mediastinal space: Mild edilberto enlargement in the subcarinal, prevascular, and bilateral hilar distributions, nonspecific. Lymph nodes: No supraclavicular or axillary adenopathy. Diaphragm: Question small hiatal hernia. Gallbladder and bile ducts: Cholecystectomy. Pancreas: Mild-moderate pancreatic atrophy. Stomach and bowel: Periampullary duodenal diverticulum measuring 3.4 cm. Bones/joints: No acute osseous abnormalities are identified. Osteopenia. Slight inferior endplate compression deformity of T8 is new since 10/17/2022. The lack of paraspinous swelling, the adjacent bony sclerosis, and vacuum disc formation would favor nonacute fracture. Soft tissues: The soft tissues of the chest wall demonstrate no acute abnormality. IMPRESSION: 1. No evidence of pulmonary embolism or aortic dissection. No acute vascular injuries. 2. Mild bronchial wall thickening with patchy bilateral mosaic alveolar attenuation which may relate to subsegmental atelectasis from bronchiolitis or hypoventilatory changes, versus patchy mild edema or pneumonitis. No fauzia consolidations. 3. Mild inferior endplate compression deformity of T8 is new since 10/17/[address] features favoring nonacute fracture. 4. Multiple bilateral noncalcified pulmonary nodules, largest in the lateral left basilar distribution. Recommend continued CT follow-up screening as previously advised. 5. Mildly enlarged lower mediastinal and bilateral hilar nodes, nonspecific. 6. Mild cardiomegaly and coronary artery calcification with changes in the distal interventricular septum and left ventricular apex concerning for small chronic myocardial infarct. 7. Additional nonemergent findings detailed above. Dictated and Authenticated by: Igor Carbone MD. Ordering:RADHA Clinton MD
[2023-03-12 21:31] LABS: Troponin I < 50 ng/L (<or=60)
[2023-03-12] MEDS: Albuterol HFA 8 GM 60 PUFF INH IH (21:55)
[2023-03-12] MEDS: Lidocaine 5% Patch 1 PATCH TP (21:56)
== END 2023-03-12 22:00 | disposition home or self-care (01) ==
PROVIDERS: Emergency Provider Registered Nurse Emergency; PCP Nurse Practitioner Family
DX: J40 Bronchitis, not specified as acute or chronic (principal); M48.54XA Collapsed vertebra, not elsewhere classified, thoracic region, initial encounter for fracture; R06.02 Shortness of breath
CPT/HCPCS: 71275; 80053; 93005; 99285; 83735; 83880; 84484; 85025; 93010; 99284; J3490

== ENCOUNTER → 2023-07-04 09:51 | Outpatient (BNVA) | payer MEDICARE, SELFPAY | PROVIDERS: PCP Nurse Practitioner Family; Referring Provider Nurse Practitioner Family | DX: M17.11 Unilateral primary osteoarthritis, right knee (principal); M17.12 Unilateral primary osteoarthritis, left knee | CPT/HCPCS: 20610; J1040 ==

== ENCOUNTER → 2023-10-22 00:44 | Outpatient (CLI) | payer MEDICARE, SELFPAY ==
--- NOTE | 2023-10-22 12:00 | DI.CTLCSR_ITS ---
Exam(s) CT CHEST LUNG CANCER SCREEN EXAM: CT CHEST LUNG CANCER SCREEN CLINICAL HISTORY: Screening for lung cancer,former smoker, z87.891 TECHNIQUE: Imaging Protocol: Axial computed tomography images with coronal and sagittal reformatted images were created and reviewed COMPARISON: CT CT CHEST PE CTA from 03/12/2023 FINDINGS: Tracheobronchial tree: Patent where visualized. Pulmonary parenchyma: No consolidation or dominant measurable mass. No architectural distortion. Lung Nodules: There is a stable 4 mm nodule in the left upper lobe (series 6, image 168). There is a stable 5 mm nodule in the left upper lobe (series 6, image 190). No new pulmonary nodules are prese nt. Mediastinum and Macy: No dominant adenopathy or fluid collection. The esophagus is unremarkable. Thyroid gland: Unremarkable. Lymph nodes: Unremarkable. Pleura: No effusion or pneumothorax. Heart: The heart is not dilated. Coronary artery calcification and/or stents are present. No pericar dial effusion. Aorta: Thoracic aorta non-dilated.Atherosclerosis. Upper abdomen: Unremarkable. Soft Tissues: Unremarkable. Bones: Within normal limits for the patient's age. IMPRESSION: Stable pulmonary nodules. Lung RADS Cat 2 - Benign Appearance / Behavior: Nodules with a very low likelihood of becoming a clin ically active cancer due to size or lack of growth Lung-RADS 1.0 CATEGORIES: Category 0 - Prior chest CT exam(s) being located for comparison. Category 1 - Annual screening in 12 months. No nodules or definitely benign nodules. Category 2 - Annual screening in 12 months. Benign appearance. Nodules with low likelihood of becomin g active cancer. Category 3 - 6-month follow-up. Probably benign. Short-term follow-up suggested. Nodules with low lik elihood of becoming active cancer. Category 4A - 3-month follow-up and CT/PET if >8 mm in size. Suspicious finding. Findings which requi re additional testing. Category 4B - Findings which require additional testing and tissue sampling. Suspicious finding. Category 4X - Category 3 or 4 nodules with additional features or imaging findings that increases the suspicion of malignancy. Modifier S- Potentially clinically significant finding. (Non lung cancer) RADIATION DOSE DELIVERED: Total DLP Total DLP DATA REPOSITORY: All CT scans at this facility are submitted to the National Radiology Data Registry (NRDR) Dose Index Registry (DIR) with the [employer] (ACR). RADIATION OPTIMIZATION: All CT scans at this facility use at least one of these dose optimization te chniques: automated exposure control; mA and/or kV adjustment per patient size (includes targeted exa ms where dose is matched to clinical indication); or iterative reconstruction.
--- NOTE | 2023-10-22 12:20 | DI.MAMMO_ITS ---
Exam(s) MAMMO SCREENING EXAM: MAMMO SCREENING ??? CLINICAL HISTORY: screening,Z12.39 TECHNIQUE: Bilateral full field digital CC and MLO mammographic images were obtained with 3D tomosyn thesis and utilizing computer aided detection (CAD). COMPARISON: Available for comparison. FINDINGS: Masses/Architectural Distortion: None seen. Microcalcifications: No suspicious pleomorphic-type are seen. Skin Thickening/Nipple Retraction: None. IMPRESSION: 1. No significant interval change with no specific features of malignancy noted. 2. Unless there is more urgent need, screening mammography is recommended, as per [employer] guidelines. Category: Breast Density - Category B - Scattered areas of fibroglandular density Breast density category C or D implies that the patient has dense breast tissue. Dense breast tissue is very common and is not abnormal but dense breast tissue can make it harder to find cancer on a ma mmogram. Also, dense breast tissue may increase their breast cancer risk. This information about the result of the mammogram report was provided to the patient to raise their awareness. Use this report when you speak with the patient about their risks for breast cancer, which includes their family hist ory. At that time, you may recommend for more screening tests (Ultrasound or MRI) as they might be us eful based on their risk. A negative radiographic report should not delay biopsy if a dominant or clinically suspicious mass is present. Up to ten percent of cancers are not identified on mammography. A negative report may reinforce clinical impression. Adenosis and dense breasts may obscure an underlying neoplasm. False positive reports average 6 to 10%. Patient will receive a letter notifying them of these results.
== END ==
PROVIDERS: PCP Nurse Practitioner Family; Visit Provider Nurse Practitioner Family
DX: Z12.39 Encounter for other screening for malignant neoplasm of breast (principal); Z87.891 Personal history of nicotine dependence; Z12.2 Encounter for screening for malignant neoplasm of respiratory organs
CPT/HCPCS: 71271; 77063; 77067

== ENCOUNTER 2024-02-28 08:03 | Outpatient (CLI) | payer MEDICARE, SELFPAY ==
[2024-02-28 12:18] LABS: Abs Immature Grans 0.02 10^3/uL (0.0-0.06); Absolute Basophil Count 0.04 10^3/uL (0.0-0.2); Absolute Lymphocyte Count 0.88 10^3/uL (1.2-3.4); Absolute Monocyte Count 0.55 10^3/uL (0.1-0.8); Absolute Neutrophil Count 5.95 10^3/uL (1.2-6.7); Basophils % 0.5; Eosinophils % 1.3; HCT 36.4 % (36.0-46.0); HGB 12.6 g/dL (11.2-15.7); Immature Grans % 0.3; Lymphocytes % 11.7; MCH 31.6 pg (27.0-33.0); MCHC 34.6 % (32.0-36.0); MCV 91 fL (80-95); MPV 11.1 fL (8.0-11.0); Monocytes % 7.3; Neutrophils % 78.9; Platelet Count 219 10^3/uL (130-400); RBC 3.99 10^6/uL (3.93-5.22); RDW 14.5 % (11.7-14.6); RDW-SD 49.6 fL; WBC 7.54 10^3/uL (4.4-10.8)
== END 2024-02-28 08:04 | disposition home or self-care (01) ==
LOC: LOS 08:03
PROVIDERS: PCP Nurse Practitioner Family; Referring Provider Nurse Practitioner Family; Visit Provider Nurse Practitioner Family
DX: I50.20 Unspecified systolic (congestive) heart failure (principal); M85.89 Other specified disorders of bone density and structure, multiple sites; K21.9 Gastro-esophageal reflux disease without esophagitis
CPT/HCPCS: 36415; 80053; 80061; 82306; 82607; 83735; 85025

== ENCOUNTER 2024-03-02 05:13 | Outpatient (CLI) | payer MEDICARE, SELFPAY ==
[2024-03-02 12:54] LABS: Vitamin D 25 Total 26.5 ng/mL (30-100)
[2024-03-02 12:57] LABS: ALT 26 U/L (14-59); AST 19 U/L (15-37); Albumin 4.2 g/dL (3.4-5.0); Alkaline Phosphatase 79 U/L (46-116); Anion Gap 11.2 mmol/L (3-11); BUN 14 mg/dL (7-18); Bilirubin, Total 0.5 mg/dL (0.2-1.0); CO2 29.8 mmol/L (21.0-32.0); CREATININE 0.8 mg/dL (0.55-1.02); Calcium 9.5 mg/dL (8.5-10.1); Calculated LDL 103 mg/dL (<100); Chloride 93 mmol/L (98-107); Cholesterol 211 mg/dL (<200); Estimated GFR 78.72 (mL/min/1.73m2); Glucose 95 mg/dL (74-106); HDL Cholesterol 98 mg/dL (40-60); Magnesium 1.9 mg/dL (1.8-2.4); Potassium 3.4 mmol/L (3.5-5.1); Sodium 134 mmol/L (136-145); Total Protein 8.2 g/dL (6.4-8.2); Triglyceride 50 mg/dL (<150); Vitamin B12 671 pg/mL (193-986)
== END 2024-03-02 05:14 | disposition home or self-care (01) ==
LOC: LOS 05:13
PROVIDERS: PCP Nurse Practitioner Family; Visit Provider Nurse Practitioner Family
DX: I50.20 Unspecified systolic (congestive) heart failure (principal); M85.80 Other specified disorders of bone density and structure, unspecified site; K21.9 Gastro-esophageal reflux disease without esophagitis
CPT/HCPCS: 36415; 80053; 80061; 82306; 82607; 83735

== ENCOUNTER → 2024-05-07 08:20 | Outpatient (BNVA) | payer MEDICARE, SELFPAY | PROVIDERS: PCP Nurse Practitioner Family; Referring Provider Nurse Practitioner Family | DX: M17.11 Unilateral primary osteoarthritis, right knee (principal); M17.12 Unilateral primary osteoarthritis, left knee | CPT/HCPCS: 20610; J1010 ==

== ENCOUNTER 2024-06-04 02:55 | Outpatient (CLI) | payer MEDICARE, SELFPAY ==
[2024-06-04 12:59] LABS: Anion Gap 9.6 mmol/L (3-11); BUN 12 mg/dL (7-18); CO2 31.4 mmol/L (21.0-32.0); CREATININE 0.7 mg/dL (0.55-1.02); Calcium 9.9 mg/dL (8.5-10.1); Chloride 94 mmol/L (98-107); Estimated GFR 92.41 (mL/min/1.73m2); Glucose 105 mg/dL (74-106); Potassium 3.5 mmol/L (3.5-5.1); Sodium 135 mmol/L (136-145); Vitamin D 25 Total 33.4 ng/mL (30-100)
[2024-06-04 23:48] LABS: HIV-1/2 Ag & Ab Screen Negative (Negative)
== END 2024-06-04 02:56 | disposition home or self-care (01) ==
LOC: LOS 02:55
PROVIDERS: PCP Nurse Practitioner Family; Visit Provider Nurse Practitioner Family
DX: E87.6 Hypokalemia (principal); E55.9 Vitamin D deficiency, unspecified; Z11.4 Encounter for screening for human immunodeficiency virus [HIV]
CPT/HCPCS: 36415; 80048; 82306; 87389

== ENCOUNTER 2024-10-26 01:08 | Outpatient (CLI) | payer MEDICARE, SELFPAY ==
--- NOTE | 2024-10-26 06:30 | DI.CTLCSR_ITS ---
Exam(s) CT CHEST LUNG CANCER SCREEN EXAM: CT CHEST LUNG CANCER SCREEN CLINICAL HISTORY: Screening for lung cancer,former smoker, z87.891 TECHNIQUE: Imaging Protocol: Axial computed tomography images with coronal and sagittal reformatted images were created and reviewed. Lung Computer Aided Detection (CAD) was utilized. COMPARISON: CT CT CHEST LUNG CANCER SCREEN from 10/17/[address] CHEST LUNG CANCER SCREEN from 10/22/2023 FINDINGS: The examination is limited due to patient motion artifact and lack of IV contrast. Tracheobronchial tree: Patent where visualized. No bronchiectasis. Pulmonary parenchyma: No consolidation or dominant measurable mass. Stable parenchymal fibrotic soliz es are present. No new pulmonary infiltrates are seen. Lung Nodules: There is no change in size of the 4 mm nodule in the left upper lobe (series 2, image 4 3). There is also stable 5 mm nodule in the left upper lobe (series 2, image 48). No new pulmonary nodules. Mediastinum and Macy: No dominant adenopathy or fluid collection. The esophagus is unremarkable. Thyroid gland: Unremarkable. Lymph nodes: Unremarkable. Pleura: No effusion or pneumothorax. Heart: The heart is not dilated. Mild coronary artery calcification is present. No pericardial effus ion. Aorta: Thoracic aorta non-dilated.Atherosclerotic calcification is present. Upper abdomen: Unremarkable. Soft Tissues: Unremarkable. Bones: Within normal limits. IMPRESSION: Stable pulmonary nodules. No new pulmonary nodules. Lung RADS Cat 2 - Benign Appearance / Behavior: Nodules with a very low likelihood of becoming a clin ically active cancer due to size or lack of growth Lung-RADS 1.0 CATEGORIES: Category 0 - Prior chest CT exam(s) being located for comparison. Category 1 - Annual screening in 12 months. No nodules or definitely benign nodules. Category 2 - Annual screening in 12 months. Benign appearance. Nodules with low likelihood of becomin g active cancer. Category 3 - 6-month follow-up. Probably benign. Short-term follow-up suggested. Nodules with low lik elihood of becoming active cancer. Category 4A - 3-month follow-up and CT/PET if >8 mm in size. Suspicious finding. Findings which requi re additional testing. Category 4B - Findings which require additional testing and tissue sampling. Suspicious finding. Category 4X - Category 3 or 4 nodules with additional features or imaging findings that increases the suspicion of malignancy. Modifier S- Potentially clinically significant finding. (Non lung cancer) RADIATION DOSE DELIVERED: 36.82mGy.cm Total DLP 36.82mGy.cmTotal DLP DATA REPOSITORY: All CT scans at this facility are submitted to the National Radiology Data Registry (NRDR) Dose Index Registry (DIR) with the [employer] (A[employer]). RADIATION OPTIMIZATION: All CT scans at this facility use at least one of these dose optimization te chniques: automated exposure control; mA and/or kV adjustment per patient size (includes targeted exa ms where dose is matched to clinical indication); or iterative reconstruction.
--- NOTE | 2024-10-26 06:30 | DI.MAMMO_ITS ---
Exam(s) MAMMO SCREENING EXAM: MAMMO SCREENING CLINICAL HISTORY: screening,z12.39 TECHNIQUE: Bilateral full field digital CC and MLO mammographic images were obtained with 3D tomosyn thesis and utilizing computer aided detection (CAD). COMPARISON: Available for comparison. FINDINGS: Masses/Architectural Distortion: None seen. Microcalcifications: No suspicious pleomorphic-type are seen. Skin Thickening/Nipple Retraction: None. IMPRESSION: 1. No significant interval change with no specific features of malignancy noted. 2. Unless there is more urgent need, screening mammography is recommended, as per [employer] guidelines. BI-RADS Category 1 - Negative Breast Density - Category B - Scattered areas of fibroglandular density Breast density category C or D implies that the patient has dense breast tissue. Dense breast tissue is very common and is not abnormal but dense breast tissue can make it harder to find cancer on a ma mmogram. Also, dense breast tissue may increase their breast cancer risk. This information about the result of the mammogram report was provided to the patient to raise their awareness. Use this report when you speak with the patient about their risks for breast cancer, which includes their family hist ory. At that time, you may recommend for more screening tests (Ultrasound or MRI) as they might be us eful based on their risk. A negative radiographic report should not delay biopsy if a dominant or clinically suspicious mass is present. Up to ten percent of cancers are not identified on mammography. A negative report may reinforce clinical impression. Adenosis and dense breasts may obscure an underlying neoplasm. False positive reports average 6 to 10%. Patient will receive a letter notifying them of these results.
== END 2024-10-26 01:28 ==
LOC: DI 01:08
PROVIDERS: PCP Nurse Practitioner Family; Visit Provider Nurse Practitioner Family
DX: Z12.31 Encounter for screening mammogram for malignant neoplasm of breast (principal); Z87.891 Personal history of nicotine dependence; Z12.2 Encounter for screening for malignant neoplasm of respiratory organs
CPT/HCPCS: 71271; 77063; 77067

== ENCOUNTER → 2024-11-26 14:43 | Outpatient (BNVA) | payer MEDICARE, SELFPAY | PROVIDERS: PCP Nurse Practitioner Family; Referring Provider Nurse Practitioner Family; Visit Provider Physical Therapy Assistant | DX: Z12.11 Encounter for screening for malignant neoplasm of colon (principal); K57.30 Diverticulosis of large intestine without perforation or abscess without bleeding; I44.7 Left bundle-branch block, unspecified ==

== ENCOUNTER 2024-11-30 08:00 | Outpatient (CLI) | payer MEDICARE, SELFPAY ==
--- NOTE | 2024-11-30 08:00 | RT.EKG_ITS ---
APPROVED REPORT Exam: Resting ECG Reason for Exam: cardiac evaluation Patient Location: O HR:74 bpm ECG Measurements Heart Rate 74 AXIS DC 197 P 20 QRSd 161 QRS -33 QT 435 T 117 QTc 483 Conclusion Sinus rhythm...normal P axis, V-rate 50- 99 Ventricular premature complex...V complex w/ short R-R interval Probable left atrial enlargement...P >50mS, <-0.10mV V1 Left bundle branch block...QRSd>120, broad/notched R Baseline wander in lead(s) V2
== END 2024-11-30 08:01 | disposition home or self-care (01) ==
LOC: DI.CARD 08:01
PROVIDERS: PCP Nurse Practitioner Family; Visit Provider Registered Nurse
DX: I50.20 Unspecified systolic (congestive) heart failure (principal); I44.7 Left bundle-branch block, unspecified
CPT/HCPCS: 93010

== ENCOUNTER → 2024-11-30 08:18 | Outpatient (BNVA) | payer MEDICARE, SELFPAY | PROVIDERS: PCP Nurse Practitioner Family; Referring Provider Nurse Practitioner Family; Visit Provider Registered Nurse | DX: I10 Essential (primary) hypertension (principal); I50.20 Unspecified systolic (congestive) heart failure | CPT/HCPCS: 93005; 99214 ==

== ENCOUNTER 2024-12-11 08:14 | Day surgery (SDC) | payer MEDICARE, SELFPAY ==
--- NOTE | 2024-12-10 15:20 | PDOC.DSDIS_ITS ---
Date of service: 12/11/24 Discharge Plan Disposition Patient Disposition: Home Condition: Good Discharge Details Reason For Visit: screening colonoscopy Attending Provider: Artem Richards Primary Care Provider: Francoise Villegas Home Meds and New Rx's Prescriptions: Continued aspirin 81 mg tablet,delayed release (DR/EC) 81 mg PO DAILY PreserVision AREDS-2 250-90-40-1 mg tablet,chewable 1 tab PO QAM AND QPM sacubitril-valsartan [Entresto] 24-26 mg tablet 1 tab PO BID pantoprazole 40 mg tablet,delayed release (DR/EC) 40 mg PO DAILY Qty: 90 3RF hydrochlorothiazide 25 mg tablet 25 mg PO DAILY Qty: 90 3RF metoprolol succinate 25 mg tablet extended release 24 hr 12.5 mg PO DAILY Qty: 45 3RF atorvastatin 40 mg tablet 40 mg PO QPM Qty: 90 3RF lidocaine 5 % adhesive patch,medicated 1 patch topical DAILY PRN (Reason: back pain) Qty: 15 0RF Rx Instructions: leave on most painful area for up to 12 hrs Discontinued bisacodyl [Dulcolax (bisacodyl)] 5 mg tablet,delayed release (DR/EC) 5 mg PO ONCE Qty: 4 0RF Rx Instructions: Take per colonoscopy instructions provided by ordering providers office polyethylene glycol 3350 17 gram/dose powder 17 g PO ONCE Qty: 238 0RF Rx Instructions: Take per colonoscopy instructions provided by ordering providers office Discharge Instructions Instructions: Diverticulosis Additional Instructions: Ammy, it was a pleasure meeting you today, and I hope you are comfortable throughout the colonoscopy, and that you feel great this afternoon. Everything went very smoothly. Aside from diverticulosis, I did not see anything else out of the ordinary. I will attach some information here about typical approaches for diverticular management. But generally, I recommend that patients remain thoughtful about their dietary fiber, taking great care to ensure an appropriate level, targeting around 20 to 30 g of fiber per day. They should stay well- hydrated, and avoid any symptoms of constipation. I typically recommend that patients with any type of family history of colorectal cancers or significant polyp disease, repeat their screening colonoscopies every 5 years. 1. If tolerated, consume a soft, low fiber diet for 1-2 days. 2[address] Do not drive, drink alcohol, operate machinery, make critical decisions, or do activities that require coordination or balance for 24 hours. 3. Because air was put into your colon during the procedure, expelling air from your rectum (passing gas or farting) is normal. 4. You may not have a bowel movement for 1-3 days because of the colonoscopy prep. This is normal. 5. Go directly to the emergency room if you notice any of the following: Develop chills (warm to touch), or if you have a thermometer and your temperature is above 101 Difficulty breathing or difficultly swallowing Persistent vomiting Severe abdominal pain, other than gas cramps Severe chest pain Black, tarry stools Any bleeding ? exceeding one tablespoon 6. Call your physician if the site where your intravenous was started becomes red, swollen, painful, and warm to touch. 7. Your physician has reviewed your pre-procedure medications. Please continue to take those medications as previously ordered. You will be given specific information/education regarding any changes to your medications before leaving. Activity:: Activity as Tolerated Diet:: As Tolerated Discharge Orders Discharge Orders: Discharge Order (Routine); Ordered 12/10/24 Ordered By: Artem Richards DS: Diagnosis Discharge Diagnosis (1) Encounter for screening colonoscopy: Status: Acute Asessment and Plan: Negative screening colonoscopy today. Based on the family history that the patient reports, 5-year interval for screening colonoscopy would be most appropriate.
--- NOTE | 2024-12-10 15:22 | COLE_ITS ---
Date of service: 12/11/24 Time of Service: 10:30 Colonoscopy Report Date of procedure: 12/11/24 Pre-op diagnosis general: screening colonoscopy Post-op diagnosis procedure note: other (Diverticulosis) Procedure: colonoscopy Surgeon: Artem Richards Anesthesia Type: General:No Airway Estimated blood loss (mL): 0 Pathology: none sent Complications: None Disposition: same day Indications: Ammy is a 74 year old woman who needs her next screening colonoscopy Prep: Miralax/Dulcolax Procedure Start Time: 10:00 Procedure End Time: 10:16 Retraction Time: 7 Findings: Extensive cavernous sigmoid diverticulosis Procedure Description: After the induction of monitored anesthetic care, and with the patient in left lateral decubitus position, I began by performing an external anorectal exam.? Perineum and skin were normal, as was the anal verge.?Next, I performed a digital rectal exam.? I did not appreciate any abnormal findings.? Next, I advanced a colonoscope into the rectal vault.? I performed retroflexion.? This appeared normal.? Using insufflation, I then advanced the colonoscope beyond the rectal folds and into the sigmoid colon before advancing towards the cecum.? There is extensive, cavernous sigmoid diverticulosis. Great care was taken to maintain the true lumen of the colon, and carefully traverse this. Majority of the descending and transverse colon were normal, with just a few scattered diverticula. The scope was noted to be in the cecum by identification of the ileocecal valve and appendiceal orifice.? I then began withdrawing the colonoscope using repeated irrigation as necessary for full evaluation of the colonic mucosa. ?Once the scope was withdrawn to the level of the rectum, great care was taken to examine portions of the rectal folds.? Finally, the scope was withdrawn and the patient was brought to the same-day surgery recovery unit as the anesthetic wore off. Aside from the diverticulosis mentioned above, the remainder of the colonoscopy was totally normal. The findings and instructions were shared with the patient prior to discharge. [place] Bowel Prep [place] Bowel Prep Right Colon: 3 Left Colon: 3 Transverse Colon: 3 Total Score: 9
[2024-12-11 08:44] VITALS: BP 146/72; PULSE 101; RESP 16; TEMP 36.4; O2SAT 99
--- NOTE | 2024-12-11 08:53 | ANES.PREOP_ITS ---
General Info Date of Service Date Performed: 12/11/24 Height: 5 ft 3 in Weight: 81.7 kg Body Mass Index (BMI): 31.8 Surgical Procedure: Operation Date: 12/11/24 09:50 Proposed Procedure Side Surgeon eloy Richards MD Meds Allergies and Home Medications Allergies Allergy/AdvReac Type Severity Reaction Status Date / Time lisinopril AdvReac Mild Dry cough Verified 12/11/24 08:39 Home Medication ?Medication ?Instructions ?Recorded vit C 250 mg-E 90 mg-zinc 40 1 tab PO QAM AND QPM 10/03/21 mg-copper 1 [id number] chew tablet (PreserVision AREDS-2) lidocaine 5 % topical patch 1 patch topical DAILY PRN back 03/12/23 pain #15 ea aspirin 81 mg tablet,delayed 81 mg PO DAILY 03/25/23 release sacubitril 24 mg-valsartan 26 mg 1 tab PO BID 07/04/23 tablet (Entresto) pantoprazole 40 mg tablet,delayed 40 mg PO DAILY #90 tabs 06/01/24 release atorvastatin 40 mg tablet 40 mg PO QPM #90 tabs 10/30/24 hydrochlorothiazide 25 mg tablet 25 mg PO DAILY #90 tabs 10/30/24 metoprolol succinate 25 mg 12.5 mg (1/2 x 25 mg) PO DAILY #45 10/30/24 tablet,extended release 24 hr tabs Current Visit Medications: Current Medications Generic Name Dose Route Start Last Admin Trade Name Freq PRN Reason Stop Dose Admin Ringer's Solution 1,000 mls @ 80 mls/hr 12/11/24 06:00 IV 12/11/24 23:59 INFUSION JEAN MARIE IV Miscellaneous Supplies 1 each 12/11/24 06:00 Iv Access IV 12/11/24 23:59 DIRECTED JEAN MARIE Ondansetron HCl 4 mg 12/10/24 15:23 Ondansetron 4 Mg/2 Ml Vial IVP 01/09/25 15:22 Q4H PRN PRN Nausea / Vomiting Sodium Chloride 0 ml 12/11/24 06:00 Normal Saline Flush 10 Ml Syr IV 12/11/24 23:59 PRN PRN Sodium Chloride 0 ml 12/11/24 06:00 Normal Saline 10 Ml Vial IJ 12/11/24 23:59 DIRECTED PRN Sterile Water 0 ml 12/11/24 06:00 Water,Injection,Sterile 10 Ml Vial IJ 12/11/24 23:59 DIRECTED PRN PFSH Active Problems Active Problems: Problem Status Onset Code Encounter for screening colonoscopy Acute Z12.11 Vitamin D insufficiency Acute E55.9 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 M47.816 Osteopenia Chronic M85.80 Heart failure with reduced ejection fraction Chronic I50.20 Chronic left hip pain Chronic M25.552, G89.29 Left bundle branch block Chronic I44.7 Diverticulosis of colon Chronic K57.30 ALEXANDRE (nonalcoholic steatohepatitis) Chronic K75.81 Essential hypertension Chronic I10 Chronic low back pain Chronic M54.5, G89.29 Primary osteoarthritis of right knee Chronic M17.11 Primary osteoarthritis of left knee Chronic M17.12 Gastroesophageal reflux disease Chronic K21.9 Hyperlipidemia Chronic E78.5 Macular degeneration disease Chronic H35.30 Primary fibromyalgia syndrome Chronic M79.7 Medical History Medical History Prediabetes Former smoker Acute systolic CHF (congestive heart failure) (~06/2021) Surgical History Surgical History S/P shoulder surgery (08/25/14) Right Neer acromioplasty with excision of distal clavicle and repair of supraspinatus tendon. S/P knee surgery Pt. denies this states she has never had knee surgery. Has had knee injections S/P colonoscopy Hx of esophagogastroduodenoscopy History of cholecystectomy (08/08/21) Hx of tonsillectomy Tobacco Smoking/Tobacco Use Status: Former Tobacco Use Passive smoking exposure: Yes Second hand exposure: Yes Alcohol Alcohol Intake: current Alcohol intake frequency: 0-2 drinks per day Alcohol type: beer Substance Use Substance use: Never Substance use type: does not use Vital Signs and Lab Results Vital Signs Most Recent Vital Signs in EMR: Most Recent Vital Signs Temp Pulse Resp BP Pulse Ox 36.4 C L 101 H 16 146/72 H 99 12/11/24 08:44 12/11/24 08:44 12/11/24 08:44 12/11/24 08:44 12/11/24 08:44 Lab Results Blood Type / Crossmatch: No Data to Display Complete Blood Count: No Data to Display Complete Metabolic Panel: No Data to Display Liver Function Panel: No Data to Display Coagulation Panel: No Data to Display Cardiac Panel: No Data to Display Arterial Blood Gas: No Data to Display Venous Blood Gas: No Data to Display Pancreas Panel: No Data to Display Thyroid Panel: No Data to Display Infectious Disease: No Data to Display Blood Cultures: No Data to Display Toxicology Panel: No Data to Display Imaging and Studies Imaging and Studies Study information below may be from another EMR and interpreted by another provider. Please see original notes in EMR for more complete details. EKG Summary: 07/11/2021 Conclusion Sinus rhythm...normal P axis, V-rate 60- 99 Left bundle branch block...QRSd>120, broad/notched R ST elevation secondary to IVCD...Multiple VCG criteria Stress Test Summary: 07/11/2021 Stress ECG Conclusion 1. There is a pharmacological stress test. Patient no symptoms suggestive of ischemia. 2. EKG portion of this exam is nondiagnostic. Echocardiogram Summary: Admission Date: 10/17/22 : 1950 Age: 72 APPROVED REPORT EXAM: Comprehensive 2D, Doppler, and color-flow Echocardiogram Patient Location: Out-Patient Full Decator Operator: Mirna Jerry RDCS (AE) Indications: Heart failure, reassess, acute chf Other Information Study Quality: Adequate Conclusion Left ventricle is mildly dilated. Ejection fraction is 40% with global hypokinesis Normal right ventricular size and systolic function The left atrium is mildly dilated. The right atrium is normal in size Aortic valve is sclerotic and trileaflet without stenosis or regurgitation Moderate mitral annular calcification. Mild to moderate mitral regurgitation Normal tricuspid valve with trace regurgitation. Right ventricular systolic pressure could not be estimated Mildly dilated ascending aorta measuring 3.37 cm 07/11/2021 Conclusion Left Ventricle : Left ventricular systolic function is mildly decreased. The left ventricle is normal size. There is normal left ventricular wall thickness. There is global hypokinesis of the left ventricle. LVEF is 50%. Right Ventricle : Right ventricle is grossly normal in size. Right ventricular systolic function is grossly normal. Atria : The left atrium size is normal. The right atrium size is normal. Mitral Valve : Mild to moderate mitral annular calcification. Trace to mild mitral regurgitation. No evidence of mitral valve stenosis. Great Vessels : The aortic root is normal in size. The ascending aorta is mildly dilated. Aortic arch is normal in caliber. IVC is normal in size and collapses >50% with inspiration. See remainder of study for further details. Anesthesia Assessment and Plan Anesthesia History Personal History: No History of Anesthesia Complications Family History: No Family History of Anesthesia Complications Exercise Tolerance Exercise Tolerance: Metabolic Equivalents>4 Pertinent Negatives Pertinent Negatives: No Symptoms of GERD Cardiac & Pulmonary Exam Cardiac Exam: Normal S1/S2 Heart Sounds Pulmonary Exam: Clear Bilateral Breath Sounds Implantable Cardiac Device Does patient have a Pacemaker or an ICD?: No Airway Exam Known Difficult Airway: No Mallampati Class: 1 Mouth Opening: Normal (> 3cm) Thyromental Distance: Greater than 3 cm Neck Range of Motion: Full ROM Neck Circumference: Normal Teeth Condition: Removable Dentures/Plates Upper (Left at home) ASA Classification ASA Score: ASA 3 Emergency Case?: No NPO Status NPO Status: NPO Clears >2 hours, Solids >8 hours Anesthesia Plan Resuscitation Status: Full Code Anesthesia Technique: General Anesthesia Airway Planned: Natural Airway Monitors Used: Standard Monitors
[2024-12-11] MEDS: Lactated Ringers 1,000 ML 80 ML IV (09:04)
[2024-12-11 09:35] VITALS: BMI 31.8
[2024-12-11 10:26] VITALS: BP 97/80; PULSE 75; RESP 18; TEMP 36.2; O2SAT 98
[2024-12-11 10:46] VITALS: BP 114/65; PULSE 82; RESP 20; TEMP 36.5; O2SAT 98
--- NOTE | 2024-12-11 10:52 | W.ANESPOSTOP ---
Postoperative Evaluation Date, Time and Location Date Performed: 12/11/24 Time Performed: 10:42 Patient Location: Day Surgery Unit Vital Signs Most Recent Imported Vital Signs: Most Recent Vital Signs Temp Pulse Resp BP Pulse Ox 36.5 C 82 20 114/65 98 12/11/24 10:46 12/11/24 10:46 12/11/24 10:46 12/11/24 10:46 12/11/24 10:46 Pain Score Most Recent Pain Score: Most Recent Pain Score Pain Level 0 12/11/24 08:44 Assessment Mental Status: Awake (Alert & Oriented to Patient Baseline) Airway and Respiratory Function: Patent airway with normal (patient baseline) respiratory exam Cardiovascular Function: Hemodynamically Stable Hydration Status: Adequately Hydrated Nausea & Vomiting: No Nausea or Vomiting Pain: Pt. Denies Any Pain Peripheral Nerve Block: Patient did not receive a nerve block
== END 2024-12-11 10:58 | disposition home or self-care (01) ==
LOC: SUR 08:15
PROVIDERS: PCP Nurse Practitioner Family; Visit Provider Surgery
PROC: 0DJD8ZZ Inspection of Lower Intestinal Tract, Via Natural or Artificial Opening Endoscopic (ICD-10-PCS; CPT 45378; principal; 2024-12-11 09:45)
DX: Z12.11 Encounter for screening for malignant neoplasm of colon (principal); I10 Essential (primary) hypertension; K57.30 Diverticulosis of large intestine without perforation or abscess without bleeding; I44.7 Left bundle-branch block, unspecified
CPT/HCPCS: G0121; J2704

== ENCOUNTER → 2025-03-11 13:16 | Outpatient (BNVA) | payer MEDICARE, SELFPAY | PROVIDERS: PCP Nurse Practitioner Family; Referring Provider Nurse Practitioner Family; Visit Provider Internal Medicine Cardiovascular Disease | DX: I50.20 Unspecified systolic (congestive) heart failure (principal); R05.3 Chronic cough | CPT/HCPCS: 99214 ==

== ENCOUNTER → 2025-04-29 08:38 | Outpatient (BNVA) | payer MEDICARE, SELFPAY | PROVIDERS: PCP Nurse Practitioner Family; Referring Provider Nurse Practitioner Family; Visit Provider Physician Assistant | DX: M17.0 Bilateral primary osteoarthritis of knee (principal) | CPT/HCPCS: 20610; J1010 ==

== ENCOUNTER → 2025-06-15 09:47 | Outpatient (BNVA) | payer MEDICARE, SELFPAY | PROVIDERS: PCP Nurse Practitioner Family; Referring Provider Nurse Practitioner Family; Visit Provider Internal Medicine Cardiovascular Disease | DX: I50.20 Unspecified systolic (congestive) heart failure (principal); I10 Essential (primary) hypertension | CPT/HCPCS: 99214 ==

== ENCOUNTER 2025-07-16 14:23 | Outpatient (CLI) | payer MEDICARE, SELFPAY ==
--- NOTE | 2025-07-16 14:15 | RT.EKG_ITS ---
APPROVED REPORT Exam: Resting ECG Reason for Exam: Irregular heart rate Patient Location: O HR:77 bpm ECG Measurements Heart Rate 77 AXIS IN 180 P 40 QRSd 165 QRS -35 QT 456 T 115 QTc 517 Conclusion Sinus rhythm...normal P axis, V-rate 50- 99 Multiple ventricular premature complexes...V complexes w/ short R-R intervls Probable left atrial enlargement...P >50mS, <-0.10mV V1 Left bundle branch block...QRSd>120, broad/notched R
== END 2025-07-16 14:24 | disposition home or self-care (01) ==
LOC: DI.CM 14:25
PROVIDERS: PCP Nurse Practitioner Family; Visit Provider Nurse Practitioner Family
DX: I49.9 Cardiac arrhythmia, unspecified (principal); I44.7 Left bundle-branch block, unspecified; I51.7 Cardiomegaly
CPT/HCPCS: 93010

== ENCOUNTER 2025-08-30 15:22 | Outpatient (CLI) | payer MEDICARE, SELFPAY ==
--- NOTE | 2025-08-30 13:30 | DI.RAD_ITS ---
Exam(s) XR KNEE RT 4V AP,LAT,ROSALIE,PAT EXAM: XR KNEE RT 4V AP,LAT,ROSALIE,PAT CLINICAL HISTORY: OA R KNEE. TECHNIQUE: 2D digital imaging was performed. Three views. COMPARISON: None FINDINGS: BONES: No acute fracture is present. No bony destructive lesion is seen. JOINTS: There is severe narrowing of the patellofemoral joint space, with a [id number]-nb-wanx appearance. There is moderate periarticular spurring. There is sngw-uq-yvwfncip narrowing of the medial femoral tibial joint space where there is mild periarticular spurring. The knee is normally aligned. No joint effusion is seen. SOFT TISSUE: Normal. IMPRESSION: Severe degenerative changes of the patellofemoral joint. Ecnk-mq-kvfvxslf degenerative changes of the medial femoral tibial joint. DATA REPOSITORY: RADIATION DOSE DELIVERED:
--- NOTE | 2025-08-30 13:30 | DI.RAD_ITS ---
Exam(s) XR KNEE LT 4V AP,LAT,ROSALIE,PAT EXAM: XR KNEE LT 4V AP,LAT,ROSALIE,PAT CLINICAL HISTORY: OA L KNEE. TECHNIQUE: 2D digital imaging was performed. Three views. COMPARISON: CR XR knee LT 3V AP,lat,rosalie from 02/16/2019 FINDINGS: BONES: No acute fracture is present. No bony destructive lesion is seen. There is a chronic appearing bony projected at the upper pole of the patella. JOINTS: There is moderate to severe narrowing of the medial femoral tibial joint, worsening from prior previous exam. There is periarticular spurring. There is spurring at the femoral intercondylar notch. The patellofemoral joint shows severe narrowing laterally. There is prominent periarticular spurring. There is mild lateral patellar subluxation. No joint effusion is seen. SOFT TISSUE: Normal. IMPRESSION: Severe degenerative changes of the patellofemoral joint. Moderate to degenerative changes of the medial femoral tibial joint. DATA REPOSITORY: RADIATION DOSE DELIVERED:
== END 2025-08-30 15:23 | disposition home or self-care (01) ==
LOC: DIORS 15:22
PROVIDERS: PCP Nurse Practitioner Family; Referring Provider Nurse Practitioner Family; Visit Provider Physician Assistant
DX: M17.0 Bilateral primary osteoarthritis of knee (principal)
CPT/HCPCS: 20610; J1010; 73564

== ENCOUNTER → 2025-10-27 00:18 | Outpatient (CLI) | payer MEDICARE, SELFPAY ==
--- NOTE | 2025-10-27 06:30 | DI.MAMMO_ITS ---
Exam(s) MAMMO SCREENING EXAM: MAMMO SCREENING CLINICAL HISTORY: screening,z12.39 TECHNIQUE: Mammograms were interpreted according to the usual protocol including computer analysis with CAD system, tomosynthesis and C-view imaging. COMPARISON: 2015 through 2023 FINDINGS: The breasts are composed of mainly fatty density , Breast Density category A. No suspicious masses or suspicious microcalcifications are seen. No skin thickening or abnormal axillary lymph nodes are seen. There has been no significant change from prior exams. IMPRESSION: BI-RADS Category 1, Negative mammogram Yearly screening mammography is recommended. Breast Density- Category A - The breast are almost entirely fatty. Breast density Category C or D implies that the patient has dense breast tissue. Dense breast tissue can make it harder to find cancer on a mammogram. Dense breast tissue is also associated with an increased risk of breast cancer. This information about the result of the mammogram report was provided to the patient to raise their awareness. Use this report when you speak with the patient about their risks for breast cancer, which includes their family history. At that time, you may recommend additional screening tests (Ultrasound or MRI) as these tests may add significant information. A negative radiographic report should not delay biopsy if a dominant or clinically suspicious mass is present. Up to ten percent of cancers are not identified on mammography. A negative report may reinforce clinical impression. Adenosis and dense breasts may obscure an underlying neoplasm. False positive reports average 6 to 10%. Patient will receive a letter notifying them of these results.
--- NOTE | 2025-10-27 06:30 | DI.CTLCSR_ITS ---
Exam(s) CT CHEST LUNG CANCER SCREEN EXAM: CT CHEST LUNG CANCER SCREEN CLINICAL HISTORY: Screening for lung cancer,former smoker, z87.891 TECHNIQUE: Imaging Protocol: Axial computed tomography images with coronal and sagittal reformatted images were created and reviewed. Lung Computer Aided Detection (CAD) was utilized. COMPARISON: CT ABD PELVIS WITH CONTRAST from 03/09/[address] CHEST LUNG CANCER SCREEN from 10/17/[address] CHEST LUNG CANCER SCREEN from 10/22/[address] CHEST LUNG CANCER SCREEN from 10/26/2024 FINDINGS: Tracheobronchial tree: Patent where visualized. No bronchiectasis. Pulmonary parenchyma: There are stable ground-glass opacities in the lungs. There are no new focal consolidating infiltrates. No architectural distortion. Lung Nodules: The 2 nodules seen in the left upper lobe are stable. There are no new pulmonary nodules. Mediastinum and Macy: No dominant adenopathy or fluid collection. The esophagus is unremarkable. Thyroid gland: Unremarkable. Lymph nodes: Unremarkable. Pleura: No effusion or pneumothorax. Heart: The heart is not dilated. There are coronary artery calcifications present. No pericardial effusion. Aorta: Thoracic aorta non-dilated.Atherosclerotic calcification is present. Upper abdomen: Unremarkable. Soft Tissues: Unremarkable. Bones: Within normal limits. IMPRESSION: 1. Stable left upper lobe pulmonary nodules. There are no new pulmonary nodules. 2. Chronic ground-glass opacities which can be seen with idiopathic interstitial pneumonias, eosinophilic pneumonia acute causes including infection or pulmonary edema. Please correlate clinically. Lung RADS Cat 2 - Benign Appearance / Behavior: Nodules with a very low likelihood of becoming a clinically active cancer due to size or lack of growth Lung-RADS 1.0 CATEGORIES: Category 0 - Prior chest CT exam(s) being located for comparison. Category 1 - Annual screening in 12 months. No nodules or definitely benign nodules. Category 2 - Annual screening in 12 months. Benign appearance. Nodules with low likelihood of becoming active cancer. Category 3 - 6-month follow-up. Probably benign. Short-term follow-up suggested. Nodules with low likelihood of becoming active cancer. Category 4A - 3-month follow-up and CT/PET if >8 mm in size. Suspicious finding. Findings which require additional testing. Category 4B - Findings which require additional testing and tissue sampling. Suspicious finding. Category 4X - Category 3 or 4 nodules with additional features or imaging findings that increases the suspicion of malignancy. Modifier S- Potentially clinically significant finding. (Non lung cancer) RADIATION DOSE DELIVERED: 39.64mGy.cm Total DLP 39.64mGy.cmTotal DLP DATA REPOSITORY: All CT scans at this facility are submitted to the National Radiology Data Registry (NRDR) Dose Index Registry (DIR) with the [employer] ([employer]). RADIATION OPTIMIZATION: All CT scans at this facility use at least one of these dose optimization techniques: automated exposure control; mA and/or kV adjustment per patient size (includes targeted exams where dose is matched to clinical indication); or iterative reconstruction.
== END ==
PROVIDERS: PCP Nurse Practitioner Family; Visit Provider Nurse Practitioner Family
DX: Z12.31 Encounter for screening mammogram for malignant neoplasm of breast (principal); Z87.891 Personal history of nicotine dependence
CPT/HCPCS: 71271; 77063; 77067